=== PATIENT | female | born 1960 | race Caucasian/White ===

== ENCOUNTER 2017-11-09 01:47 | Outpatient (CLI) | payer BC, SELFPAY ==
[2017-11-09 09:04] LABS: Cholesterol 273 mg/dL (50-200); HDL Cholesterol 40 mg/dL (40-60); LDL CHOLESTEROL 200 mg/dL (<100); TSH 0.14 uIU/mL (0.358-3.74); Triglyceride 187 mg/dL (30-150)
[2017-11-09 21:50] LABS: T3,Free 3.3 pg/ml (2.8-5.3)
== END 2017-11-09 02:07 ==
PROVIDERS: PCP Family Medicine; Visit Provider Family Medicine
DX: E89.0 Postprocedural hypothyroidism (principal)
CPT/HCPCS: 36415; 80061; 83721; 84443; 84481

== ENCOUNTER 2018-09-12 16:37 | Outpatient (CLI) | payer BC, SELFPAY ==
[2018-09-12 17:40] LABS: C-Reactive Protein 0.19 mg/dL (0.0-0.3)
[2018-09-12 18:39] LABS: ESR 9 mm/hr (0-30)
[2018-09-16 12:10] LABS: Lyme Ab w Rflx to Lyme Confirm Negative
[2018-09-16 12:34] LABS: Rheumatoid Factor <8 IU/mL (<12.5)
[2018-09-16 14:30] LABS: ANA Interpretation Negative (NEGAT)
== END 2018-09-12 16:57 ==
PROVIDERS: PCP Family Medicine; Visit Provider Family Medicine
DX: M25.541 Pain in joints of right hand (principal); M25.542 Pain in joints of left hand
CPT/HCPCS: 36415; 85652; 86038; 86140; 86431; 86618

== ENCOUNTER 2020-02-25 02:25 | Outpatient (CLI) | payer BC, SELFPAY ==
[2020-02-25 12:51] LABS: Hemoglobin A1C 5.2 % (<5.7)
[2020-02-25 13:31] LABS: Anion Gap 6.9 mmol/L (3-11); BUN 14 mg/dL (7-18); CO2 29.1 mmol/L (21.0-32.0); CREATININE 0.86 mg/dL (0.55-1.02); Calculated LDL 163 mg/dL (<100); Chloride 105 mmol/L (98-107); Cholesterol 257 mg/dL (<200); Glucose 98 mg/dL (74-106); HDL Cholesterol 31 mg/dL (40-60); Potassium 4.4 mmol/L (3.5-5.1); Sodium 141 mmol/L (136-145); TSH 0.02 uIU/mL (0.36-3.74); Triglyceride 315 mg/dL (<150)
[2020-02-25 13:48] LABS: FREE T4 1.29 ng/dL (0.76-1.46)
== END 2020-02-25 02:45 ==
PROVIDERS: PCP Nurse Practitioner Family; Visit Provider Nurse Practitioner Family
DX: E03.9 Hypothyroidism, unspecified (principal); E78.5 Hyperlipidemia, unspecified
CPT/HCPCS: 36415; 80048; 80061; 83036; 84439; 84443

== ENCOUNTER 2020-04-05 01:50 | Outpatient (CLI) | payer BC, SELFPAY ==
--- NOTE | 2020-04-05 16:05 | DI.MAMMO_ITS ---
EXAM: MG MAMMO SCREENING CLINICAL HISTORY: screening,z12.39 TECHNIQUE: Bilateral full field digital CC and MLO mammographic images were obtained with 3D tomosyn thesis and utilizing computer aided detection (CAD). COMPARISON: Available for comparison. FINDINGS: Masses/Architectural Distortion: None seen. Microcalcifications: No suspicious pleomorphic-type are seen. Skin Thickening/Nipple Retraction: None. IMPRESSION: 1. No significant interval change with no specific features of malignancy noted. 2. Unless there is more urgent need, screening mammography is recommended, as per [employer] guidelines. BI-RADS Category 1 - Negative Breast Density - Category D - Extremely dense Breast density category C or D implies that the patient has dense breast tissue. Dense breast tissue is very common and is not abnormal but dense breast tissue can make it harder to find cancer on a ma mmogram. Also, dense breast tissue may increase their breast cancer risk. This information about the result of the mammogram report was provided to the patient to raise their awareness. Use this report when you speak with the patient about their risks for breast cancer, which includes their family hist ory. At that time, you may recommend for more screening tests (Ultrasound or MRI) as they might be us eful based on their risk. A negative radiographic report should not delay biopsy if a dominant or clinically suspicious mass is present. Up to ten percent of cancers are not identified on mammography. A negative report may reinforce clinical impression. Adenosis and dense breasts may obscure an underlying neoplasm. False positive reports average 6 to 10%. Patient will receive a letter notifying them of these results.
== END 2020-04-05 01:51 | disposition home or self-care (01) ==
LOC: DI 01:50
PROVIDERS: PCP Nurse Practitioner Family; Visit Provider Nurse Practitioner Family
DX: Z12.31 Encounter for screening mammogram for malignant neoplasm of breast (principal)
CPT/HCPCS: 77063; 77067

== ENCOUNTER 2020-05-14 01:47 | Outpatient (CLI) | payer BC, SELFPAY ==
[2020-05-14 12:37] LABS: Calculated LDL 176 mg/dL (<100); Cholesterol 248 mg/dL (<200); HDL Cholesterol 34 mg/dL (40-60); Triglyceride 190 mg/dL (<150)
== END 2020-05-14 01:48 | disposition home or self-care (01) ==
LOC: LOS 01:47
PROVIDERS: PCP Nurse Practitioner Family; Visit Provider Nurse Practitioner Family
DX: E78.5 Hyperlipidemia, unspecified (principal)
CPT/HCPCS: 36415; 80061

== ENCOUNTER 2020-05-26 03:23 | Outpatient (CLI) | payer BC, SELFPAY ==
[2020-05-26 13:11] LABS: TSH 0.11 uIU/mL (0.36-3.74)
[2020-05-26 13:33] LABS: FREE T4 1.41 ng/dL (0.76-1.46)
== END 2020-05-26 03:24 | disposition home or self-care (01) ==
LOC: LOS 03:24
PROVIDERS: PCP Nurse Practitioner Family; Visit Provider Nurse Practitioner Family
DX: E06.3 Autoimmune thyroiditis (principal)
CPT/HCPCS: 36415; 84439; 84443

== ENCOUNTER 2020-08-12 01:52 | Outpatient (CLI) | payer BC, SELFPAY ==
[2020-08-12 13:05] LABS: FREE T4 1.11 ng/dL (0.76-1.46); TSH 0.64 uIU/mL (0.36-3.74)
== END 2020-08-12 01:53 | disposition home or self-care (01) ==
LOC: LOS 01:52
PROVIDERS: PCP Nurse Practitioner Family; Visit Provider Nurse Practitioner Family
DX: E06.3 Autoimmune thyroiditis (principal)
CPT/HCPCS: 36415; 84439; 84443

== ENCOUNTER 2020-11-11 01:15 | Outpatient (CLI) | payer BC, SELFPAY ==
--- NOTE | 2020-11-11 07:15 | DI.NM_ITS ---
APPROVED REPORT Exam: Pharmacologic paired with low level exercise Patient Location: Out-Patient Room/Bed: Stress Nurse: Sadie Craven RN Ordering Provider:ANANT MENDOZALuis Miguel, Contact Number: [phone] BMI: 29.53 Baseline Rhythm: Sinus Rhythm Comment: inverted T waves present Indications: Chest pain Medical History Medical History: HTN, HLD, Hypothyroidism, Obesity Cardiac Medications: Losartan, Levothyroxine, Methylphenidate Allergies: Lisinopril, Propoxyphene napsylate Cardiac Risk Factors: FHX of CAD, HTN, Hyperlipidemia, Obesity Previous Cardiac Procedures: None Pretest Chest Pain Characteristics: No chest pain Exercise History: Indeterminate Physical Disabilities: None Lung Sounds: Clear to auscultation Heart Sounds: Regular Stress Test Details Test: Pharmacologic stress was paired with low level exercise. Reason for pharmacologic stress test: inverted T waves present. Nuclear Acquisition: Rest Tc-99m/Stress Tc-99m 1 day Rest Isotope: Tc-99m Sestamibi. Dose: 11.5 Date: 11/11/2020 Injection Time: 0840 Stress Isotope: Tc-99m Sestamibi. Dose: 36.5 Date: 11/11/2020 Injection Time: 1028 HR Resting HR Supine: 65 bpm Max Heart Rate (APMHR): 159.849910 bpm Resting HR Standin bpm Target HR (85% APMHR): 135.511570 bpm Max HR Achieved: 129 bpm % of APMHR: 81.13 Recovery HR: 83 bpm BP Resting BP Supine: 146/88 mmHg Resting BP Standin/82 mmHg Max BP: 168/84 mmHg Recovery BP: 148/80 mmHg ECG Resting ECG: Sinus Rhythm Ectopy: None Comment: T waves present in leads II, III, aVF, V3, V4, V5, V6 Stress ECG: Sinus Tachycardia w/ inverted T waves ST Change: deepening of inverted T waves Arrhythmia: None Recovery ECG: Sinus Rhythm w/ inverted T waves Recovery ST Change: No significant ST segment changes noted Recovery Arrhythmia: None Clinical Stress Symptoms: Dyspnea Rate Pressure Product: [id number] Stress ECG Conclusion 1. The resting electrocardiogram showed left ventricular hypertrophy with repolarization abnormalitie s 2. Patient underwent exercise testing coupled with pharmacologic stress with regadenoson 3. Peak heart rate achieved was 82% of predicted for age 4. Electrocardiographically the repolarization's became more prominent with increasing heart rate, mendez ggestive but not diagnostic of some degree of myocardial ischemia 5. There were no dysrhythmias Stress Test Summary STAGE HR BP Symptoms NOTES Supine 65 146/88 1 min post Lexiscan injection 128 152/80 mild SOB 3 min post Lexiscan injection 109 168/84 6 min post Lexiscan injection 83 148/80 SOB resolved. Standing 73 140/82 Lexiscan injection paired w/ exercise at 2.1 mph and 0% grade. MPI Conclusion Normal myocardial perfusion without evidence of ischemia or prior infarction EF 53% Radiologist Interpretation Radiologist agrees with Boot Repairer's Interpretation. Radiologist Interpretation by: Gold Geronimo MD Interpretation Date/Time: 11/11/2020 16:17:42
[2020-11-11] MEDS: Regadenoson 0.4 MG/5 ML SYR IVP (10:36)
== END 2020-11-11 01:35 ==
PROVIDERS: PCP Nurse Practitioner Family; Visit Provider Nurse Practitioner Family
DX: R07.9 Chest pain, unspecified (principal); I51.7 Cardiomegaly; Z82.49 Family history of ischemic heart disease and other diseases of the circulatory system; I10 Essential (primary) hypertension; E78.5 Hyperlipidemia, unspecified; E66.9 Obesity, unspecified
CPT/HCPCS: 78452; 93017; J2785

== ENCOUNTER 2020-11-11 13:03 | Outpatient (CLI) | payer BC, SELFPAY ==
--- NOTE | 2020-11-11 13:00 | NS.NUTBLAN_ITS ---
Luis was referred to Medical Nutrition Therapy for weight management. PMH: hyperlipidemia, HTN, obesity. 5'9 205 lbs, BMI 30. Luis reports that during the work week she typically drinks coffee during day and has a home made meal in evening. She has no hunger during day. She reports that she walks 3 miles daily at her job and that she has gained 50 lbs in last 10 years. Her goal weight is 170 lbs. Session today focused on how to increase metabolism to help in weight loss. Suspect that her erratic meal schedule has contributed to weight gain over the years. Educated Luis on how to follow a [id number] kcal, 80-100 g CHO, 60-70 g protein, 45-55 g fat meal plan with 3 meals and 2 snacks daily. Meal plans provided. Also, encouraged walking an additional 30 minutes per day for more cardio intense exercise. Suspect that a 10% weight loss will help regular her BP and decrease lipids. No follow up planned. Luis has my contact information and will follow up prn.
== END 2020-11-11 13:04 | disposition home or self-care (01) ==
LOC: DS 13:04
PROVIDERS: PCP Nurse Practitioner Family; Visit Provider Dietitian, Registered
DX: E66.3 Overweight (principal); Z68.30 Body mass index [BMI] 30.0-30.9, adult; E78.5 Hyperlipidemia, unspecified; I10 Essential (primary) hypertension; Z71.3 Dietary counseling and surveillance
CPT/HCPCS: 97802

== ENCOUNTER 2020-12-17 14:13 | Outpatient (CLI) | payer BC, SELFPAY ==
--- NOTE | 2020-12-17 14:00 | RT.EKG_ITS ---
APPROVED REPORT Exam: Resting ECG Reason for Exam: HTN Patient Location: O HR:60 bpm ECG Measurements Heart Rate 60 AXIS LA 139 P 45 QRSd 102 QRS 38 QT 384 T -87 QTc 384 Conclusion Sinus rhythm...normal P axis, V-rate 50- 99 Nonspecific repol abnormality, diffuse leads...ST dep, T flat/neg, ant/lat/inf
== END 2020-12-17 14:14 | disposition home or self-care (01) ==
LOC: DI.CARD 14:15
PROVIDERS: PCP Nurse Practitioner Family; Visit Provider Internal Medicine Cardiovascular Disease
DX: I10 Essential (primary) hypertension (principal)
CPT/HCPCS: 93010

== ENCOUNTER 2021-08-12 01:20 | Outpatient (CLI) | payer BC, SELFPAY ==
[2021-08-12 12:53] LABS: Anion Gap 8.9 mmol/L (3-11); BUN 16 mg/dL (7-18); CO2 28.1 mmol/L (21.0-32.0); Calcium 8.5 mg/dL (8.5-10.1); Calculated LDL 191 mg/dL (<100); Chloride 105 mmol/L (98-107); Cholesterol 279 mg/dL (<200); Estimated GFR 56.37 (mL/min/1.73m2); Glucose 102 mg/dL (74-106); HDL Cholesterol 34 mg/dL (40-60); Potassium 4.2 mmol/L (3.5-5.1); Sodium 142 mmol/L (136-145); TSH 1.53 uIU/mL (0.36-3.74); Triglyceride 274 mg/dL (<150)
[2021-08-12 13:13] LABS: FREE T4 0.93 ng/dL (0.76-1.46)
== END 2021-08-12 01:21 | disposition home or self-care (01) ==
LOC: LOS 01:21
PROVIDERS: PCP Nurse Practitioner Family; Visit Provider Nurse Practitioner Family
DX: I10 Essential (primary) hypertension (principal); E03.9 Hypothyroidism, unspecified; E78.5 Hyperlipidemia, unspecified
CPT/HCPCS: 36415; 80048; 80061; 84439; 84443

== ENCOUNTER → 2021-08-30 01:57 | Outpatient (CLI) | payer BC, SELFPAY ==
--- NOTE | 2021-08-30 06:30 | DI.MAMMO_ITS ---
Exam(s) MAMMO SCREENING EXAM: MAMMO SCREENING CLINICAL HISTORY: screening,z12.39. TECHNIQUE: Bilateral full field digital CC and MLO mammographic images were obtained with 3D tomosyn thesis and utilizing computer aided detection (CAD). COMPARISON: Prior mammograms were reviewed, the most recent being March 2020. FINDINGS: Fibroglandular tissue is again noted be moderately dense, this somewhat decreasing the sensitivity of the mammogram for finding in underlying There are no new obvious spiculated masses nor malignant appearing microcalcification groups. There is no significant architectural distortion nor skin thickening-retraction. IMPRESSION: Dense bilateral fibroglandular tissue. No obvious radiographic evidence of malignancy. BI-RADS Category 1 - Negative Breast Density - Category C - Heterogeneously dense Breast density Category C or D implies that the patient has dense breast tissue. Dense breast tissue can make it harder to find cancer on a mammogram. Dense breast tissue is also associated with an incr eased risk of breast cancer. This information about the result of the mammogram report was provided to the patient to raise their awareness. Use this report when you speak with the patient about their risks for breast cancer, which includes their family history. At that time, you may recommend additional screening tests (Ultrasoun d or MRI) as these tests may add significant information. A negative radiographic report should not delay biopsy if a dominant or clinically suspicious mass is present. Up to ten percent of cancers are not identified on mammography. A negative report may reinforce clinical impression. Adenosis and dense breasts may obscure an underlying neoplasm. False positive reports average 6 to 10%. Patient will receive a letter notifying them of these results.
== END ==
PROVIDERS: PCP Nurse Practitioner Family; Visit Provider Nurse Practitioner Family
DX: Z12.31 Encounter for screening mammogram for malignant neoplasm of breast (principal)
CPT/HCPCS: 77063; 77067

== ENCOUNTER → 2021-11-08 12:15 | Outpatient (CLI) | payer BC, SELFPAY ==
--- NOTE | 2021-11-08 16:45 | DI.RAD_ITS ---
Exam(s) XR FOOT LT COMPLETE EXAM: XR FOOT LT COMPLETE CLINICAL HISTORY: PAIN IN LEFT FOOT--M79.672. TECHNIQUE: 2D digital imaging was performed. COMPARISON: No exams were available for comparison FINDINGS: 3 views No evidence of fracture nor diastasis of the Lisfranc joint. No osseous lesions nor erosions. Great toe metatarsophalangeal joint appears un remarkable. No hallux valgus. No pes planus. Tiny inferi or calcaneal spur noted. IMPRESSION: DATA REPOSITORY: RADIATION DOSE DELIVERED:
--- NOTE | 2021-11-08 17:28 | DI.VRAD_ITS ---
PROCEDURE INFORMATION: Exam: XR Left Foot Exam date and time: 11/08/2021 5:04 PM Age: 61 years old Clinical indication: Patient HX: Pain in left foot; Additional info: Question heel spur vs plantar fascitis TECHNIQUE: Imaging protocol: Radiologic exam of the Left foot. Views: 3 or more views. COMPARISON: No relevant prior studies available. FINDINGS: Bones/joints: No acute fracture or dislocation. Plantar calcaneal and achilles enthesopathy. Joint spaces appear maintained. Soft tissues: Unremarkable. IMPRESSION: Plantar calcaneal and achilles enthesopathy. Dictated and Authenticated by: Joss Goldsmith MD. Ordering:BAILEY Vazquez MD
== END ==
PROVIDERS: PCP Nurse Practitioner Family; Visit Provider Nurse Practitioner Family
DX: M79.672 Pain in left foot (principal); M77.32 Calcaneal spur, left foot
CPT/HCPCS: 73630

== ENCOUNTER 2022-03-31 07:58 | Outpatient (REF) | payer BC, SELFPAY ==
--- NOTE | 2022-03-31 07:30 | PAPFT_PTH ---
PATIENT: Luis Still LOC: [facility] U#:[id number] AGE/SX: 61/F ROOM: RE03/31/[address]: PANCHO Waite : 1960 BED: DIS: 03/31/2022 SPEC #: [id number] RECD: 03/31/22 12:52 STATUS: DOMINGA REJean Marie #: [id number] JULIO: 03/31/22 07:[address]: Deysi Painter DEPT: [facility] Cytology RECD BY: Shirley Baker Tissues: 1 - CX/ENDOCX FOR PAP SMEARS Procedures: PAP THIN PREP/UVM Screening HPV DNA PROBE Comments: [id number]
== END 2022-03-31 07:59 | disposition home or self-care (01) ==
LOC: LBN 07:58
PROVIDERS: PCP Nurse Practitioner Family; Visit Provider Nurse Practitioner Family
DX: Z12.4 Encounter for screening for malignant neoplasm of cervix (principal); Z11.51 Encounter for screening for human papillomavirus (HPV)
CPT/HCPCS: 88142; 87624

== ENCOUNTER 2022-04-14 01:16 | Outpatient (CLI) | payer BC, SELFPAY ==
[2022-04-14 16:41] LABS: ALT 28 U/L (14-59); AST 18 U/L (15-37); Albumin 4.4 g/dL (3.4-5.0); Alkaline Phosphatase 76 U/L (46-116); Anion Gap 6.8 mmol/L (3-11); BUN 16 mg/dL (7-18); Bilirubin, Total 0.3 mg/dL (0.2-1.0); CO2 31.2 mmol/L (21.0-32.0); Calcium 9.1 mg/dL (8.5-10.1); Calculated LDL 97 mg/dL (<100); Chloride 105 mmol/L (98-107); Cholesterol 171 mg/dL (<200); Glucose 83 mg/dL (74-106); HDL Cholesterol 36 mg/dL (40-60); Potassium 3.8 mmol/L (3.5-5.1); Sodium 143 mmol/L (136-145); TSH (W/Ref FT4) 0.39 uIU/mL (0.36-3.74); Total Protein 7.3 g/dL (6.4-8.2); Triglyceride 190 mg/dL (<150)
== END 2022-04-14 01:17 | disposition home or self-care (01) ==
PROVIDERS: PCP Nurse Practitioner Family; Visit Provider Nurse Practitioner Family
DX: E78.5 Hyperlipidemia, unspecified (principal)
CPT/HCPCS: 36415; 80053; 80061; 84443

== ENCOUNTER 2022-09-04 01:46 | Outpatient (CLI) | payer BC, SELFPAY ==
--- NOTE | 2022-09-04 06:45 | DI.MAMMO_ITS ---
Exam(s) MAMMO SCREENING EXAM: MAMMO SCREENING CLINICAL HISTORY: screening,z12.39. TECHNIQUE: Bilateral full field digital CC and MLO mammographic images were obtained with 3D tomosyn thesis and utilizing computer aided detection (CAD). COMPARISON: Prior mammograms were reviewed. FINDINGS: The fibroglandular tissue pattern is again noted to be moderately dense. In the posterior-lateral aspect of the left breast there are 2 small adjacent nodules, both measuring approximately 8 x 5 mm, located 16 cm in from the nipple, as seen on the CC view. These have benign appearance but were not evident on prior mammograms. No other new findings in the left breast nor new findings in the right breast. No malignant-appearing microcalcification groups in either breast. There is no significant architectural distortion nor skin thickening-retraction. IMPRESSION: 1. No radiographic evidence of malignancy in the right breast. 2. Two adjacent nodular densities located posteriorly in the lateral aspect of the left breast, 16 cm in from the nipple. Benign appearance but were not evident on prior mammograms. Spot compression v iews and ultrasound recommended BI-RADS Category 0 - Assessment Incomplete: Need additional imaging evaluation Breast Density - Category C - Heterogeneously dense Breast density Category C or D implies that the patient has dense breast tissue. Dense breast tissue can make it harder to find cancer on a mammogram. Dense breast tissue is also associated with an incr eased risk of breast cancer. This information about the result of the mammogram report was provided to the patient to raise their awareness. Use this report when you speak with the patient about their risks for breast cancer, which includes their family history. At that time, you may recommend additional screening tests (Ultrasoun d or MRI) as these tests may add significant information. A negative radiographic report should not delay biopsy if a dominant or clinically suspicious mass is present. Up to ten percent of cancers are not identified on mammography. A negative report may reinforce clinical impression. Adenosis and dense breasts may obscure an underlying neoplasm. False positive reports average 6 to 10%. Patient will receive a letter notifying them of these results.
== END 2022-09-04 02:06 ==
PROVIDERS: PCP Nurse Practitioner Family; Visit Provider Nurse Practitioner Family
DX: Z12.31 Encounter for screening mammogram for malignant neoplasm of breast (principal)
CPT/HCPCS: 77063; 77067

== ENCOUNTER 2022-09-07 02:16 | Outpatient (CLI) | payer BC, SELFPAY ==
--- NOTE | 2022-09-07 | DI.US_ITS ---
Exam(s) MAMMO SCREEN CALL BACK UNI US BREAST LT COMPLETE EXAM: MAMMO SCREEN CALL BACK UNI-LEFT AND COMPLETE LEFT BREAST ULTRASOUND CLINICAL HISTORY: F/U MAMMO, 2 SMALL NODULES. TECHNIQUE: Unilateral spot mammographic images obtained with 3D tomosynthesisand utilizing computer aided detection (CAD). . Complete LEFT breast Ultrasound was also performed, including all 4 quadrants, the retroareolar regio n, and the ipsilateral axilla. COMPARISON: Prior mammograms were reviewed. This additional imaging was performed due to findings described on the recent screening mammogram of 09/04/2022. FINDINGS: DIAGNOSTIC MAMMOGRAM: Additional mammographic views performed todayrender this area less concerning. COMPLETE LEFT BREAST ULTRASOUND: Ultrasound performed today reveals no evidence of solid or significant cystic lesions in the lateral aspect of breast to correspond to finding on the mammogram, further evidence that these are probably small adjacent benign intramammary lymph nodes.. Scanning of the ipsilateral axilla reveals normal-appearing lymph nodes but no significant adenopath y. IMPRESSION: 1. Benign findings in left breast as described above. Appropriate follow-up as described by myself with the patient today is repeat left breast MAMMOGRAM i n 6 months. The patient was informed of these findings and recommendations by myself prior to leaving [facility] today. BI-RADS Category 3 - 6 month - Probably Benign Finding: Recommend follow-up mammography in 6 months Breast Density - Category C - Heterogeneously dense Breast density Category C or D implies that the patient has dense breast tissue. Dense breast tissue can make it harder to find cancer on a mammogram. Dense breast tissue is also associated with an incr eased risk of breast cancer. This information about the result of the mammogram report was provided to the patient to raise their awareness. Use this report when you speak with the patient about their risks for breast cancer, which includes their family history. At that time, you may recommend additional screening tests (Ultrasoun d or MRI) as these tests may add significant information. A negative radiographic report should not delay biopsy if a dominant or clinically suspicious mass is present. Up to ten percent of cancers are not identified on mammography. A negative report may reinforce clinical impression. Adenosis and dense breasts may obscure an underlying neoplasm. False positive reports average 6 to 10%. Patient will receive a letter notifying them of these results.
== END 2022-09-07 02:36 ==
LOC: DI 02:17
PROVIDERS: PCP Nurse Practitioner Family; Visit Provider Nurse Practitioner Family
DX: Z12.31 Encounter for screening mammogram for malignant neoplasm of breast (principal); R92.8 Other abnormal and inconclusive findings on diagnostic imaging of breast
CPT/HCPCS: 76642; 77063; 77067

== ENCOUNTER → 2023-03-13 03:12 | Outpatient (CLI) | payer BC, SELFPAY ==
--- NOTE | 2023-03-13 | DI.US_ITS ---
Exam(s) US BREAST LT COMPLETE MG MAMMO DIAGNOSTIC UNI EXAM: MG MAMMO DIAGNOSTIC UNI-LEFT AND COMPLETE LEFT BREAST ULTRASOUND CLINICAL HISTORY: 6 month f/u,r92.8,z09. TECHNIQUE: Cc and MLO mammographic images were obtained with 3D tomosynthesis technique and [employer] g computer aided detection (CAD). Also additional spot compression views performed Complete left breast ultrasound was performed including all 4 quadrants as well as the axilla. COMPARISON: Prior mammograms were reviewed, as well as prior ultrasound FINDINGS: Diagnostic left breast mammogram: The previously described posteriorly located nodules are actually less evident on the present study, further evidence that they were benign. However, on the present CC view there is a suggestion of a nodular density medial of center located 7 cm in from the nipple. This measures approximately 8 x 5 mm. Additional spot compression view (cc) of this area is equivocal. We proceeded with ultrasound Complete left breast ultrasound: There is a solitary finding on today's ultrasound which is at the 10 o'clock position and corresponds to the finding on the mammogram. This has the appearance of a 4 x 3 millimeter microcyst. Most importantly, there no solid lesions seen in all 4 quadrants. Scanning of the axilla is negative for adenopathy. IMPRESSION: 1. Benign findings. There is a new microcyst at the 10 o'clock position of the left breast measuring 4 x 3 mm. No new solid lesions. Appropriate follow-up is to keep this patient on her yearly mammogram schedule, this implying her nex t bilateral screening mammogram would be in August or September 2023, with earlier imaging if a self detec blanca breast change is noted.. The patient was informed of the findings and follow-up recommendations by myself prior to leaving the department today. BI-RADS Category 2 - Benign Findings Breast Density - Category C - Heterogeneously dense Breast density Category C or D implies that the patient has dense breast tissue. Dense breast tissue can make it harder to find cancer on a mammogram. Dense breast tissue is also associated with an incr eased risk of breast cancer. This information about the result of the mammogram report was provided to the patient to raise their awareness. Use this report when you speak with the patient about their risks for breast cancer, which includes their family history. At that time, you may recommend additional screening tests (Ultrasoun d or MRI) as these tests may add significant information. A negative radiographic report should not delay biopsy if a dominant or clinically suspicious mass is present. Up to ten percent of cancers are not identified on mammography. A negative report may reinforce clinical impression. Adenosis and dense breasts may obscure an underlying neoplasm. False positive reports average 6 to 10%. Patient will receive a letter notifying them of these results.
== END ==
PROVIDERS: PCP Nurse Practitioner Family; Visit Provider Nurse Practitioner Family
DX: R92.8 Other abnormal and inconclusive findings on diagnostic imaging of breast (principal); Z09 Encounter for follow-up examination after completed treatment for conditions other than malignant neoplasm
CPT/HCPCS: 76642; 77061; 77065; G0279

== ENCOUNTER 2023-04-03 04:32 | Outpatient (CLI) | payer BC, SELFPAY ==
[2023-04-03 09:30] LABS: Anion Gap 7.6 mmol/L (3-11); BUN 12 mg/dL (7-18); CO2 26.4 mmol/L (21.0-32.0); CREATININE 0.9 mg/dL (0.55-1.02); Calcium 8.9 mg/dL (8.5-10.1); Calculated LDL 159 mg/dL (<100); Chloride 107 mmol/L (98-107); Cholesterol 240 mg/dL (<200); Estimated GFR 71.83 (mL/min/1.73m2); Glucose 109 mg/dL (74-106); HDL Cholesterol 42 mg/dL (40-60); Potassium 4.1 mmol/L (3.5-5.1); Sodium 141 mmol/L (136-145); TSH (W/Ref FT4) 2.76 uIU/mL (0.36-3.74); Triglyceride 198 mg/dL (<150)
[2023-04-03 09:56] LABS: Hemoglobin A1C 5.5 % (<5.7)
[2023-04-03 21:49] LABS: Hepatitis C Ab w Rflx HCV PCR Negative (Negative)
== END 2023-04-03 04:33 | disposition home or self-care (01) ==
LOC: LBO 04:32
PROVIDERS: PCP Nurse Practitioner Family; Visit Provider Nurse Practitioner Family
DX: Z00.00 Encounter for general adult medical examination without abnormal findings (principal); E03.9 Hypothyroidism, unspecified; E78.5 Hyperlipidemia, unspecified; I10 Essential (primary) hypertension; Z11.59 Encounter for screening for other viral diseases
CPT/HCPCS: 36415; 80048; 80061; 86803; 83036; 84443

== ENCOUNTER → 2023-09-25 02:43 | Outpatient (CLI) | payer BC, SELFPAY ==
--- OUTSIDE RECORDS SUMMARY | 2023-09-25 02:45 | XMS_ITS | Encounter Summary ---
Author Organization [facility] Address [facility] Keila [facility] [place] [address] Care Team Providers Care Clerk Guide Name Role Phone Rell Brady MD Primary Care Provider [phone] Reason for Visit * Auth/Cert Specialty Diagnoses / Procedures Referred By Contac t Referred To Contact Diagnoses THYROID NODULE Procedures PRO THYROIDECTOMY PRG EMG, LARYNX THYROIDECTOMY, TOTAL OR COMPLETE (WRVU 15.04) FACIAL NERVE MONITORING, SETUP LARYNGEAL (WRVU 1.57) Referral ID Status Reason Start Date Expiration Date Visits Re quested Visits Authorized [id number] 1 1 Encounter Details Date Type Department Care Team (Latest Contact Info) Description 10/02/2017 8:45 AM EDT - 10/02/2017 5:56 PM EDT Hospital [place] [id number] Mane Barros MD [facility] [place] [address] Multinodular goiter; Maya's thyroiditis Discharge Disposition: Home Social History Tobacco Use Types Packs/Day Years Used Date Smoking Tobacco: Never Smokeless Tobacco: Never Sex and Gender Information Value Date Recorded Sex Assigned at Not on file Gender Identity Not on file Sexual Orientation Not on file documented as of this encounter Last Filed Vital Signs Vital Sign Reading Time Taken Comments Blood Pressure 139/63 10/02/2017 4:45 PM EDT Pulse 69 10/02/2017 3:40 PM EDT Temperature 36 ??C (96.8 ??F) 10/02/2017 2:48 PM EDT Respiratory Rate 15 10/02/2017 3:40 PM EDT Oxygen Saturation 93% 10/02/2017 4:45 PM EDT Inhaled Oxygen Concentration - - Weight 90.7 kg (200 lb) 10/02/2017 9:06 AM EDT Height 175.3 cm (5' 9) 10/02/2017 9:06 AM EDT Body Mass Index 29.53 10/02/2017 9:06 AM EDT documented in this encounter Discharge Instructions * Discharge Instructions* Sangita Lomeli RN - 10/02/2017 2:55 PM EDT Next dose of acetaminophen (tylenol) can be taken at . Next dose of ibuprofen (motrin) can be taken at . * Patient Instructions* Hugo Suarez MD - 10/02/2017 2:49 PM EDT THYROID LOBECTOMY (HEMITHYROIDECTOMY) PATIENT DISCHARGE INSTRUCTIONS What to Expect Following Surgery: Swelling and/or bruising under and around the incision is normal. It is usually greatest on the second or third day following surgery. You may also feel the sensation of swelling or firmness that canlast for a month or more Your scar will be most visible for 1-2 months following your operation and will gradually fade overthe next 6-8 months. As it heals, a scar often looks more pink or red than the skin around it. You may feel a ???healing ridge?? directly under the incision. This is completely normal and is the result of swelling, healing, and scar formation. Usually, this will go away when healing is complete in 3-6 months. The skin just above and below your incision will feel numb. This will improve over several months but some patients may have a long-term decrease in sensation over these areas. You may notice minor difficulty in swallowing which will improve over time. Your voice may be hoarse or weak at first--this is normal and does not mean there was damage done to the nerves that make the vocal cords move. Your voice will usually go back to normal after severaldays to a few weeks. Incision Care: Neck incisions heal rapidly--usually within a week or two. The incision can get wet in the shower 24 hours after surgery. However, do not submerge the incision underwater (i.e. bath tub, swimming pool, hot tub, etc.) for at least 2 weeks after your operation. Pat the incision dry immediately following your shower. Do not scrub the area vigorously for the next 2 weeks. You have a skin glue closure. You may notice tiny pieces of yellow/white material on your washclothor there may be a thin clear or whitish crust around the edges of the incision. This is normal. Theglue will start to come off about a week after surgery. Do not pull off the skin glue in order to allow time for the incision to heal completely. Do not use any ointments/salves/Vitamin E on the incision for at least two weeks, as these may impair early wound healing. Incisions are sensitive to sunlight. For at least 1 year after surgery you should use sunscreen when outdoors for long periods of time to prevent permanent darkening of the scar. This includes tanning booths. Pain Management: You may apply ice or cold packs to the incision for 15-20 minutes several times a day for the first2-3 days following surgery to help with discomfort. You may feel some stiffness/soreness in your shoulders, back, and neck. This may take a few days orweeks to go away completely. You may use moist warm heat, a heating pad, or massage to these areas for 15-20 minutes several times a day. Do not be afraid to move your neck - gently flexing and stretching your neck muscles and light massage will help prevent stiffness NSAIDs (non-steroidal anti-inflammatory drugs) such as ibuprofen (Motrin, Advil) and naproxen (Naprosyn, Aleve) or acetaminophen (Tylenol) are most helpful for the pain experienced after surgery. Generally, these are even more effective than the stronger pain medications (narcotics or opioids) after thyroid surgery. Take NSAIDS or Tylenol every 6 hours [id number] for the first 3-5 days following surgery to help minimize pain. Diet & Activity: No restrictions in your diet are necessary. Activity as tolerated by your comfort level. You may return to work as soon as you would like. However, if your job requires heavy lifting or strenuous physical activity, your surgeon may ask you to wait to return to work until after your two-week post-operative appointment. No driving until you can comfortably turn your head and react appropriately in an emergency. Thyroid Hormone: About 22% of patients will require thyroid hormone supplementation after a hemithyroidectomy. A blood test will performed in 6-8 weeks to determine whether you need this. This lab test will be coordinated with your follow-up appointment. Pathology Report: All specimens removed at surgery are analyzed by a pathologist. This report usually takes approximately 4 business days to be ready. Dr. Barros will call you with this report as soon as it is available. Follow-up Appointment: Will be scheduled with Dr. Barros in approximately 6 weeks Please call [phone] to confirm the date and time of your appointment if you do not hear from us in the next 2 weeks or if you need to reschedule. Future Appointments Date Time Provider Department Center 11/08/2017 2:05 PM NATASHA, [facility] 11/08/2017 3:15 PM Mane Barros MD [facility] 12/10/2017 1:00 PM Rell Burrell MD [facility] End[facility] Call Doctor for: Call if you have trouble talking or breathing (call 911 if this is severe) Call if you develop numbness or tingling around your mouth/lips or on the tips of your fingers or your hands, as this may mean your calcium is low. This may also be related to pain medication, where the breathing tube was positioned against your lips, the positioning of your arms and hands in the operating room, or how you were positioned when sleeping. If the sensation does not go away within a half hour, or if it worsens prior to that, call us immediately so we can discuss increasing your calcium if we think you need it. Call if your incision becomes red or begins to drain fluid. Call if you have fevers greater than 101 degrees F Call if you have persistent nausea or vomiting (this may be related to opioid pain medications). Call if you begin feeling worse, rather than better, several days after surgery. Phone number for questions: [phone] before 5 PM on weekdays [phone] after 5 PM and on weekends/holidays. Ask for the general surgery resident software solutions architect. documented in this encounter Medications at Time of Discharge Medication Sig Dispensed Refills Start Date End Date calcium citrate-vitamin D (CALCIUM CITRATE +) 315-200 mg-unit Tablet Take 2 tablets by mouth 3 times daily (with meals). 10/02/2017 03/12/2018 levothyroxine (SYNTHROID) 150 mcg Tablet Take 1 tablet by mouth daily. 90 tablet 3 07/09/2017 07/22/2018 documented as of this encounter H&P Notes * Hugo Suarez MD - 10/02/2017 11:09 AM EDT H&P 24hr interval update/Pre-operative note Please see Dr. Barros's note from clinic on 08/24/2017 for further information. ID: Luis Still is a 56 y.o. female with a hx of multinodular goiter and maya's who presents to [facility] for total thyroidectomy S: Luis Still endorses no recent change in health. Denies any fever, chills, cough, congestion,change in bowel habits. O: Physical Exam: Most Recent Vitals: 10/02/17 0906 BP: 186/84 Pulse: 71 Resp: 14 Temp: 36.6 ??C (97.9 ??F) SpO2: 98% Gen: NAD CVS: RRR Pulm: CTAB Abd: soft, nt/nd Ext: wwp Neuro: non-focal A/P: Luis Still is a 56 y.o. female who presents for planned total thyroidectomy. Will proceed with planned operation. Hugo Suarez MD 10/02/2017 General Surgery Pgr. [id number] documented in this encounter Miscellaneous Notes * Op Note - Mane Barros MD - 10/02/2017 2:31 PM EDT [facility] Operative Note Patient Name: Luis Still : [id number] MR#: [id number] Case Date: 10/02/2017 Surgeon: Surgeon(s) and Role: * Mane Barros MD - Primary * Hugo Suarez MD Preoperative diagnosis: THYROID NODULE Postoperative diagnosis: THYROID NODULE Procedure(s) (LRB): THYROIDECTOMY, TOTAL OR COMPLETE (WRVU 15.04) (N/A) FACIAL NERVE MONITORING, SETUP LARYNGEAL (WRVU 1.57) (N/A) Anesthesia: General Estimated Blood Loss: 43 mL Specimens removed during surgery: Order Name Source Comment Collection Info [place] [address] THYROID NODULE Right thryoid lobe and isthmus. excision No 10/02/2017 1:25 PM Number of tissue samples (in container) 1 Time specimen removed from patient: 1:24 PM Biospecimen to store? [place] [address] THYROID NODULE Left lobe of thyroid excision No 10/02/2017 2:13 PM Number of tissue samples (in container) 1 Time specimen removed from patient: 2:12 PM Biospecimen to store? No Drains: Surgical Closure: Primary Closure - skin incision is completely closed without any wires, anaya, drains or other devices Disposition: awakened from anesthesia, extubated and taken to the recovery room in a stable condition, having suffered no apparent untoward event. Condition: doing well without problems (Please see the Surgical Encounter Summary for any Implant and Specimen details pertinent to this patient.) HPI/Surgical Indications: Ms. 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 She had recently followed up with Dr. Burrell, in hopes that they could stop following the nodules, but the one on the right had enlarged significantly. FNA was discussed, but she prefers to proceed directly to surgery. I agree that there is little downside to thyroidectomy in this setting since she is already on a full-dose thyroid hormone supplement. I therefore recommended total thyroidectomy. Procedure Description: The patient was correctly identified in the preoperative holding area. The risks, benefits, and indications of a thyroidectomy were reviewed with the patient. She was then taken to the operating room and placed on the operating table in the supine position and an identification procedure was performed. Adequate general anesthesia was achieved by anesthesiology with the [employer] recurrent laryngeal nerve monitoring system. A natural crease in the anterior neck was marked with a marking pen. This area was infiltrated with 0.25% Sensorcaine with epinephrine. The patient'santerior neck was then prepped and draped in sterile fashion. A timeout procedure was done and all members of the OR team were in agreement. We made a curvilinear incision along the previously marked crease with a scalpel. The incision was carried down through the subcutaneous tissue and platysma muscle using electrocautery. Subplatysmal flaps were created in the cranial and caudal directions. The median raphe of the strap muscles was id entified and this was divided in vertical fashion using electrocautery. This exposed the thyroid gland, which was immediately noted to have a 2cm isthmus nodule directly over the trachea. The right lobe was from its lateral attachments to the strap muscles on the right side using electrocautery. These muscle attachments were extremely tenacious, and the gland was friable, consistent with severe thyroiditis grossly. Retraction was difficult throughout the case as a result. The middle thyroidal veins were ligated with 3-0 silk sutures and Harmonic scalpel. Because of the isthmus nodule, we were having trouble with inferior exposure, and decided to take down the upper pole vessels first. We then took down the superior vessels with a combination of 2-0 and 3-0 silk sutures and Harmonic scalpel. During the course of this dissection, the ~2cm right upper pole nodule burst, releasingcolloid-type contents, which were included with the specimen. This did facilitate better medial retraction, and the inferior thyroid vessels were then identified and divided using a combination of hand ties and harmonic scalpel. We then identified the recurrent laryngeal nerve as it ran in the tracheoesophageal groove and followed this up to ligament of Bettencourt, ligating vessels to expose the nerve's anterior surface. The parathyroid glands were not definitively seen. We then divided the attachmen ts of the ligament of Bettencourt with sharp dissection and 3-0 silk sutures and divided the attachments of the thyroid off the pretracheal fascia past the midline with electrocautery. The ligament of Bettencourt was found to be thickened and the attachments posterior to the nodule were tough. We included the isthmus and its nodule with the right lobectomy specimen, and divided the thyroid through its isthmus on the left side of the nodule using the Harmonic scalpel. We sent the specimen to pathology. The recurrent laryngeal nerve remained intact throughout. The left thyroid lobe was then from its lateral attachments to the strap muscles using electrocautery. Again, this plane was not well-defined. The middle thyroidal veins were ligated with 3-0 silk sutures and Harmonic scalpel. The inferior thyroid vessels were identified and divided usinga combination of hand ties and harmonic scalpel. We then identified the recurrent laryngeal nerve as it ran in the tracheoesophageal groove and followed this up to ligament of Bettencourt, ligating vesselsto expose the nerve's anterior surface. We then took down the upper pole thyroid vessels with a combination of 2-0 and 3-0 silk sutures and Harmonic scalpel. There was some lymphatic tissue around the upper pole that was friable and made this dissection more difficult. A candidate for the left upper parathyroid glands was seen and preserved. We then divided the attachments of the ligament of Bettencourt with sharp dissection, 3-0 silk sutures, and electrocautery. The specimen was sent to pathology. The recurrent laryngeal nerve remained intact throughout. We then irrigated the operative field. A Valsalva to 30 millimeters of mercury was accomplished by Anesthesia. Hemostasis was assured. Surgicel was placed in the paratracheal spaces bilaterally. We then closed the strap muscles using running 3-0 Vicryl suture, the platysma with interrupted 3-0Vicryl suture, and the skin with running 5-0 Prolene subcuticular suture, followed by placement of Dermabond and removal of the Prolene suture. The patient tolerated the procedure well. Sponge and needle counts were correct upon completion of the procedure. Infection Bundle used? N/A Attestation: Case Date: 10/02/2017 I was present and I participated during the entire procedure (does not need to include opening and closing). MANE BARROS MD 10/02/2017 * Brief Op Note - Mane Barros MD - 10/02/2017 2:26 PM EDT Brief Operative Note Patient Name: Luis Still : [id number] MR#: [id number] Case Date: 10/02/2017 Surgeon: Surgeon(s) and Role: * Mane Barros MD - Primary * Hugo Suarez MD Preoperative diagnosis: THYROID NODULE Postoperative diagnosis: THYROID NODULE Procedure(s) (LRB): THYROIDECTOMY, TOTAL OR COMPLETE (WRVU 15.04) (N/A) FACIAL NERVE MONITORING, SETUP LARYNGEAL (WRVU 1.57) (N/A) Anesthesia: General with NIM tube; 10cc 0.25% marcaine with epinephrine Findings: severe thyroiditis. ~2cm isthmus nodule adherent to trachea. Right upper thyroid nodule ruptured during dissection with colloid cystic contents released. Both recurrent laryngeal nerves intact throughout. No parathyroid glands definitively visualized. Complications: none apparent Intake: Intraprocedure Crystalloid Total 1.2L Transfusion No data found. Output: Estimated Blood Loss: 43cc Urine Output:: (no urine output recorded) Other Output: (no other output recorded) Drains: none Specimens removed during surgery: Order Name Source Comment Collection Info Order Time [place] 22 [address] THYROID NODULE Right thryoid lobe and isthmus. excision No 10/02/2017 1:25 PM Number of tissue samples (in container) 1 Time specimen removed from patient: 1:24 PM Biospecimen to store? [place] [address] THYROID NODULE Left lobe of thyroid excision No 10/02/2017 2:13 PM Number of tissue samples (in container) 1 Time specimen removed from patient: 2:12 PM Biospecimen to store? No Disposition: awakened from anesthesia, extubated and taken to the recovery room in a stable condition, having suffered no apparent untoward event. Condition: doing well without problems Attestation: Case Date: 10/02/2017 I was present and I participated during the entire procedure (does not need to include opening and closing). (Please see the Surgical Encounter Summary for any Implant and Specimen details pertinent to this patient.) documented in this encounter Plan of Treatment Not on file documented as of this encounter Procedures Procedure Name Priority Date/Time Associated Diagnosis Comments SPECIMEN TO PATHOLOGY Routine 10/02/2017 2:13 PM EDT SPECIMEN TO PATHOLOGY Routine 10/02/2017 1:25 PM EDT SURGICAL PATHOLOGY REPORT Routine 10/02/2017 1:24 PM EDT FACIAL NERVE MONITORING, SETUP LARYNGEAL (WRVU 1.57) 10/02/2017 11:30 AM EDT THYROID NODULE THYROIDECTOMY, TOTAL OR COMPLETE (WRVU 15.04) 10/02/2017 11:30 AM EDT THYROID NODULE documented in this encounter Results * Specimen to Pathology (10/02/2017 2:13 PM EDT) AP Specimen 10/02/2017 2:13 PM EDT 10/02/2017 2:13 PM EDT Narrative [facility] - 10/02/2017 2:13 PM EDT Specimen requisition ordered. ??Separate Pathology report to follow Mane Barros MD PATHOLOGY/CYTOLOG Y ORDERABLES Performing Organization Address [facility] [place] [address] * Specimen to Pathology (10/02/2017 1:25 PM EDT) AP Specimen 10/02/2017 1:25 PM EDT 10/02/2017 1:25 PM EDT Narrative [facility] - 10/02/2017 1:25 PM EDT Specimen requisition ordered. ??Separate Pathology report to follow Mane Barros MD PATHOLOGY/CYTOLOG Y ORDERABLES Performing Organization Address [facility] [place] [address] * Surgical Pathology Report (10/02/2017 1:24 PM EDT) FINAL DIAGNOSIS (AP) [id number] ? Location: [facility]; [facility]; A The signing pathologist has (i) examined the relevant preparation(s) for the specimen(s) and (ii) rendered or confirmed the diagnosis(es). . 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 - Chronic lymphocytic (Maya) thyroiditis. B - Left lobe of thyroid, excision: - Chronic lymphocytic (Maya) thyroiditis with ?chronic/sclerosing change. Electronically signed by: ??Preston Gooden MD Verified: ??10/09/2017 ?Pathologist Performed at: ??-[facility] Dept. of Pathology, [place], [place] ADDITIONAL STUDIES Whole slide scan: sales representative education courses slides Multiple deeper levels examined for select blocks. Immunohistochemistry Studies: Formalin-fixed, paraffin-embedded tissue sections are studied using the polymer technique with appropriate positive and negative controls. ?These IHC studies provide the pathologist with adjunctive diagnostic information. Antibody specificity has been verified by testing antibodies on a series of in-house tissues with known immunohistochemical performance characteristics. The clinical interpretation of any antibody positive staining or its absence is evaluated within the context of clinical presentation, morphology, histopathological criteria and other diagnostic tests. Block ? Antibody ?Result (Positive/Negative) A7 ? CD31 ? Highlights vessels CLINICAL INFORMATION Specimen Submitted: A - Right thyroid lobe and isthmus B - Left lobe of thyroid Clinical History and Diagnosis: Thyroid nodule SPECIMEN PROCESSING A - Labeled/Fixative: Right thyroid lobe and isthmus, fresh. Qty./Size/Weight: 4.0 x 3.5 x 2.0 cm, 11.85 g. SPECIMEN DESCRIPTION Resection Specimen: Right hemithyroidectomy and isthmus. External Surface: Smooth and glistening in the frontal side and rough on the posterior side. Parathyroids: Absent. LESION Location: Right lobe, extending from the superior to the inferior pole. Description: Round, circumscribed, multinodular. Size: 3.1 x 1.9 x 1.2 cm. Contour/capsule: Well circumscribed. Remaining parenchyma: pale-brown. Ink Designations: External surface inked black. . SPECIMEN PROCESSING SECTIONS/PROCESSING: (1-6) sales representative education courses sections including the entire lesion and sales representative education courses normal parenchyma going from cranial to caudal; (7) caudal part of the lesion serially sectioned. (R7) B - Labeled/Fixative: Left lobe of thyroid, fresh. Qty./Size/Weight: 3.7 x 2.4 x 1.1 cm, 3.99 g. SPECIMEN DESCRIPTION Resection Specimen: Left Hemithyroidectomy. External Surface: Smooth and glistening in the frontal side and rough on the posterior side. Parathyroids: Absent. LESION Location: Left lobe, expanding from the superior to the lower pole. Description: Multiple multinodular, pale white circumscribed lesions. Size: ranging from 0.9-1.2 cm. Contour/capsule: Well-circumscribed. OTHER Remaining parenchyma: Pale-brown. SECTIONS/PROCESSING: (1-11) left lobe serially sectioned and entirely submitted going from cranial to caudal. (T11) ??aemr/shb 10/09/2017 8:14 AM EDT [facility] 10/02/2017 1:24 PM EDT Mane Barros MD PATHOLOGY/CYTOLOG Y ORDERABLES [facility] [place] [address] documented in this encounter Visit Diagnoses Diagnosis Multinodular goiter Nontoxic multinodular goiter Maya's thyroiditis Chronic lymphocytic thyroiditis documented in this encounter Administered Medications Inactive Administered Medications - up to 3 most recent administrations Medication Order MAR Action Action Date Dose Rate Site acetaminophen (TYLENOL) tablet 1,000 mg 1,000 mg, Oral, ONCE, 1 dose, On Sun10/02/17 at 0930, Administer with SIP of H2O only., Day of Surgery (Day of Procedure), Routine Given 10/02/2017 9:30 AM EDT 1,000 mg fentaNYL (PF) 50mcg/mL injection 12.5-25 mcg, Intravenous, EVERY 5 MIN PRN, Starting on Sun10/02/17 at 1454, Until Tu10/02/17 at 1756, Pain, Give 12.5 mcg every 5 minutes PRN for mild to moderate pain (1-5) Give 25 mcg every 5 minutes PRN for moderate to severe pain (6-10). Hold for respiratory rate less than 10 per minute. Maximum dose 250 mcg over one hour. If ordered with hydromorphone or morphine, give hydromorphone or morphine first and use fentanyl for breakthrough pain., PACU Recovery, Routine Given 10/02/2017 3:37 PM EDT 25 mcg gabapentin (NEURONTIN) capsule 600 mg 600 mg, Oral, ONCE, 1 dose, On Sun10/02/17 at 0930, Administer with SIP of H2O only., Day of Surgery (Day of Procedure), Routine Given 10/02/2017 9:30 AM EDT 600 mg ketorolac (TORADOL) injection 15 mg 15 mg, Intravenous, EVERY 6 HOURS PRN, Starting on Sun10/02/17 at 1452, Until Tu10/02/17 at 1956, Pain, Routine Given 10/02/2017 3:26 PM EDT 15 mg labetalol (NORMODYNE,TRANDATE) injection 20 mg 20 mg, Intravenous, EVERY 4 HOURS PRN, Starting on Sun10/02/17 at 1452, Until 10/02/17 at 1956, High Blood Pressure, sbp>160, Routine Given 10/02/2017 3:25 PM EDT 20 mg lactated Ringers infusion 1,000 mL 1,000 mL, at 100 mL/hr, Intravenous, CONTINUOUS, Starting on Sun10/02/17 at 0930, Until Tu10/02/17 at 1756, Day of Surgery (Day of Procedure) New Bag 10/02/2017 1:28 PM EDT New Bag 10/02/2017 11:21 AM EDT New Bag 10/02/2017 9:30 AM EDT 1,000 mLs 100 mL/hr documented in this encounter Active and Recently Administered Medications Times are shown in EDT. Scheduled Medication Order 09/30/2017 10/01/2017 10/02/2017 acetaminophen (TYLENOL) tablet 1,000 mg (COMPLETED) 1,000 mg, Oral, ONCE, 1 dose, On Sun10/02/17 at 0930, Administer with SIP of H2O only., Day of Surgery (Day of Procedure), Routine 929 (Given - Provid er: Lola Musa RN) gabapentin (NEURONTIN) capsule 600 mg (COMPLETED) 600 mg, Oral, ONCE, 1 dose, On Sun10/02/17 at 0930, Administer with SIP of H2O only., Day of Surgery (Day of Procedure), Routine 0930 (Given - Provid er: Lola Musa RN) Continuous Medication Order 09/30/2017 10/01/2017 10/02/2017 lactated Ringers infusion 1,000 mL (CANCELED) 1,000 mL, at 100 mL/hr, Intravenous, CONTINUOUS, Starting on Sun10/02/17 at 0930, Until Sun10/02/17 at 1756, Day of Surgery (Day of Procedure) 0930 (New Bag - Prov ider: Lola Musa RN)1121 (New Bag - Provider: Tania Frausto MD)1327 (Anesthesia Volume Adjustment - Provider: Tania Frausto MD)1328 (New Bag - Provider: Tania Frausto MD) PRN Medication Order 09/30/2017 10/01/2017 10/02/2017 acetaminophen (TYLENOL) tablet 650 mg 650 mg, Oral, EVERY 4 HOURS PRN, Starting on Sun10/02/17 at 1452, Until Tu10/02/17 at 1956, Pain, Maximum dose of acetaminophen is 4000 mg from all sources in 24 hours., Routine BUpivacaine (PF) (MARCAINE) 0.5 % (5 mg/mL) injection (CANCELED) ONCE PRN, Starting on Sun10/02/17 at 1205, Until Tu10/02/17 at 1956, Intra-Operative (Intra-Procedure), Routine 1205 (Given - Provid er: Mane Barros MD - Comment: 5mL of 0.5% bupivacaine mixed 1:1 with 5ml of 1% lidocaine with epinephrine 1:200,000 for a total of 10mL. Injected prior to surgery start.) fentaNYL (PF) 50mcg/mL injection (CANCELED) 12.5-25 mcg, Intravenous, EVERY 5 MIN PRN, Starting on Sun10/02/17 at 1454, Until 10/02/17 at 1756, Pain, Give 12.5 mcg every 5 minutes PRN for mild to moderate pain (1-5) Give 25 mcg every 5 minutes PRN for moderate to severe pain (6-10). Hold for respiratory rate less than 10 per minute. Maximum dose 250 mcg over one hour. If ordered with hydromorphone or morphine, give hydromorphone or morphine first and use fentanyl for breakthrough pain., PACU Recovery, Routine 1537 (Given - Provid er: Sangita Lomeli RN) ketorolac (TORADOL) injection 15 mg 15 mg, Intravenous, EVERY 6 HOURS PRN, Starting on Sun10/02/17 at 1452, Until Sun10/02/17 at 1956, Pain, Routine 1526 (Given - Provid er: Sangita Lomeli RN) labetalol (NORMODYNE,TRANDATE) injection 20 mg 20 mg, Intravenous, EVERY 4 HOURS PRN, Starting on Sun10/02/17 at 1452, Until Sun10/02/17 at 1956, High Blood Pressure, sbp>160, Routine 1525 (Given - Provid er: Sangita Lomeli RN) lidocaine (XYLOCAINE) 10 mg/mL (1 %) injection 3 mg (COMPLETED) 3 mg (0.3 mL), Subcutaneous, ONCE PRN, 1 dose, Starting on Sun10/02/17 at 0906, Until Sun10/02/17 at 1147, for discomfort with PIV insertion, Day of Surgery (Day of Procedure), Routine 1147 (Given - Provid er: Tania Frausto MD) lidocaine-EPINEPHrine 1 %-1:200,000 injection (CANCELED) ONCE PRN, Starting on Sun10/02/17 at 1205, Until Sun10/02/17 at 1956, Intra-Operative (Intra-Procedure), Routine 1205 (Given - Provid er: Mane Barros MD - Comment: 5mL of 0.5% bupivacaine mixed 1:1 with 5ml of 1% lidocaine with epinephrine 1:200,000 for a total of 10mL. Injected prior to surgery start.) No Frequency Medication Order 09/30/2017 10/01/2017 10/02/2017 acetaminophen (TYLENOL) 500 mg tablet 1 dose, Starting on Sun10/02/17 at 1656, Until Sun10/02/17 at 1956, LOMELI, SANGITA B.: cabinet override 1700 (Due) documented in this encounter Care Teams Clerk Guide Relationship Specialty Start Date End Date Rell Brady MD [address] [place] [address] PCP - General 02/15/12 documented as of this encounter
--- OUTSIDE RECORDS SUMMARY | 2023-09-25 02:45 | XMS_ITS | Encounter Summary ---
Author Organization [facility] [place] [address] Care Team Providers Care Insole Tack Puller Hand Name Role Phone Rell Brady MD Primary Care Provider [phone] Encounter Details Date Type Department Care Team (Late st Contact Info) Description 09/27/2020 Interpretation Only [address] [phone] Neeraj Flannery MD [address] [place] [address] Social History Tobacco Use Types Packs/Day Years Used Date Smoking Tobacco: Never Assessed Sex and Gender Information Value Date Recorded Sex Assigned at Not on file Gender Identity Not on file Sexual Orientation Not on file documented as of this encounter Plan of Treatment Not on file documented as of this encounter Procedures Procedure Name Priority Date/Time Associated Diagnosis Comments XR CHEST ONE VIEW STAT 09/27/2020 10: 41 AM EDT documented in this encounter Results * XR Chest One View (09/27/2020 10:41 AM EDT) PT CLASS E RAD ADMITDTTM RAD PT RAD INFO [id number]^F INDLEY^POLLY GONZALES CHAD RAD EXAM DESC XCXR1^XR CHEST 1 VIEW^RIS RAD Anatomical Region Laterality Modality Chest N/A Radiographic Miryam ging Impressions 09/27/2020 11:53 AM EDT 1. ??Focal silhouetting of the dominant left hemidiaphragm is of uncertain significance; this could represent aspiration, small focal area of atelectasis or early airspace opacity. Consider follow-up PA and lateral chest radiograph. 2. ??Sclerotic lesion in the proximal left humerus is of uncertain etiology and significance. Clinical correlation is needed to determine if there is associated pain and also presence or absence of history of malignancy. Consider left shoulder radiographs or bone scan for further assessment. I have personally reviewed the image(s) and the resident's interpretation and agree with the findings, Mary Hemphill MD at 09/27/2020 11:53 AM Thank you for letting us participate in the care of this patient. ??If you are a health care provider and have any questions regarding this report, please contact the number below. ??For patients who have questions please contact the health career placement specialist that requested your imaging first. ? Electronically signed by: Mary Hemphill MD, [facility] ([phone]), at 09/27/2020 11:53 AM Narrative 09/27/2020 11:53 AM EDT EXAMINATION: XR CHEST 1 VIEW CLINICAL HISTORY: chest pain TECHNIQUE: AP portable upright view of the chest. COMPARISON: None FINDINGS: The lungs are well-inflated. Right lung is clear. Left lung appears clear however there is focal silhouetting of the dome of the left hemidiaphragm. No pneumothorax or pleural effusion. Cardiomediastinal silhouette, iris, pulmonary vasculature are unremarkable. Poorly circumscribed sclerotic lesion in the left humeral neck, osseous structures are otherwise unremarkable. Procedure Note Mary Hemphill MD - 09/27/2020 EXAMINATION: XR CHEST 1 VIEW CLINICAL HISTORY: chest pain TECHNIQUE: AP portable upright view of the chest. COMPARISON: None FINDINGS: The lungs are well-inflated. Right lung is clear. Left lung appearsclear however there is focal silhouetting of the dome of the left hemidiaphragm.No pneumothorax or pleural effusion. Cardiomediastinal silhouette, iris,pulmonary vasculature are unremarkable. Poorly circumscribed sclerotic lesion in the left humeral neck, osseous structures are otherwise unremarkable. IMPRESSION 1. Focal silhouetting of the dominant left hemidiaphragm is ofuncertain significance; this could represent aspiration, small focal area ofatelectasis or early airspace opacity. Consider follow-up PA and lateral chestradiograph. 2. Sclerotic lesion in the proximal left humerus is of uncertain etiologyand significance. Clinical correlation is needed to determine if there isassociated pain and also presence or absence of history of malignancy. Considerleft shoulder radiographs or bone scan for further assessment. I have personally reviewed the image(s) and the resident's interpretationand agree with the findings, Mary Hemphill MD at 09/27/2020 11:53 AM Thank you for letting us participate in the care of this patient. If youare a health care provider and have any questions regarding this report,please contact the number below. For patients who have questions please contactthe health career placement specialist that requested your imaging first. Electronically signed by: Mary Hemphill MD, [facility]([phone]), at 09/27/2020 11:53 AM Neeraj Flannery MD IMG DX ORDERABL ES documented in this encounter Visit Diagnoses Not on filedocumented in this encounter Care Teams Insole Tack Puller Hand Relationship Specialty Start Date End Date Rell Brady MD [address] [place] [address] PCP - General 02/15/12 documented as of this encounter
--- OUTSIDE RECORDS SUMMARY | 2023-09-25 02:45 | XMS_ITS | Clinical Summary ---
Author Organization [facility] [place] [address] Care Team Providers Care Laser Systems Engineer Name Role Phone Rell Brady MD Primary Care Provider [phone] Allergies No known active allergies Medications Medication Sig Dispensed Refills Start Date End Date Status levothyroxine (SYNTHROID) 150 mcg Tablet Take 1 tablet by mouth daily. 90 tablet 08/08/2018 Active Active Problems Problem Noted Date Diagnosed Date Chest pain 03/12/2018 Immunizations Name Administration Dates Next Due Influenza Quadrivalent, Preservative Free 2020 Moderna Covid-19 Monovalent 12Yr+ (Business Office Assistant 100mcg) 12/24/2020,05/11/2020,04/13/2020 Family History Medical History Relation Comments Cerebrovascular Accident Father Cerebrovascular Accident Mother Relation Status Comments Brother Alive Father Mother Sister Alive Social History Tobacco Use Types Packs/Day Years Used Date Smoking Tobacco: Never Smokeless Tobacco: Never Alcohol Use Standard Drinks/Week Comments Yes 0 (1 standard drink = 0.6 oz pur e alcohol) Sex and Gender Information Value Date Recorded Sex Assigned at Not on file Gender Identity Not on file Sexual Orientation Not on file Last Filed Vital Signs Vital Sign Reading Time Taken Comments Blood Pressure 155/95 03/13/2018 12:51 PM EST KalaniELMIRAN notified, no changes needed Pulse 78 03/13/2018 12:51 PM EST Temperature 36.7 ??C (98.1 ??F) 03/13/2018 1 2:51 PM EST Respiratory Rate 14 03/13/2018 12:5 1 PM EST Oxygen Saturation 95% 03/13/2018 12: 51 PM EST Inhaled Oxygen Concentration - - Weight 90.7 kg (200 lb) 03/12/2018 12:1 4 PM EST Height 175.3 cm (5' 9) 03/12/2018 12:1 4 PM EST Body Mass Index 29.53 03/12/2018 12:14 PM EST Plan of Treatment Health Maintenance Due Date Last Done Comments CT Colonography 1959 Colonoscopy 1959 Colorectal Cancer Screening 1959 FIT DNA 1959 FIT 1959 Sigmoidoscopy (10 year) with FIT yearly 1959 Sigmoidoscopy 1959 HIV screen 10/24/1977 Hepatitis C Screening 10/24/1977 Tdap adult 10/24/1978 Tetanus vaccine 10/24/1978 HPV test 10/24/1989 PAP Smear 10/24/1989 Breast Cancer Share Decision Needed 1999 Breast Cancer screening 1999 Zoster vaccine (1 of 2) 10/24/2009 Advance Directive 10/24/2014 Covid-19 Vaccine (4 - 2022-2 4 season) 2022 12/24/2020, 05/11/2020, 04/13/2020 Influenza (Flu) vaccine (1 o f 1 - Influenza standard series) 10/28/2023 12/08/2020 Diabetes Screening (HgbA1C o r Glucose) Discontinued 03/12/2018 Procedures Procedure Name Priority Date/Time Associated Diagnosis Comments BASIC METABOLIC PANEL (NON-FASTING) STAT 03/12/2018 12:21 PM EST from Last 3 Months or Most Recently Relevant to Health Maintenance Results * Basic Metabolic Panel (non-fasting) (03/12/2018 12:21 PM EST) Glucose Lvl 81 65 - 199 mg/dL [facility] Comment:Diabetes: >=200 mg/d L plus symptoms BUN 14 8 - 18 mg/dL [facility] Creatinine 0.86 0.70 - 1.20 mg/dL [facility] Sodium 144 135 - 145 mmol/L [facility] Potassium 4.0 3.5 - 5.0 mmol/L [facility] Comment: Please note: ??Patients with WBC >100,000 may have falsely elevated Potassium levels. ??For accurate Potassium quantification in these patients send serum separator tube (gold top) for subsequent determinations. ??Contact the Clinical Chemistry Laboratory if there are any questions. Chloride 105 98 - 107 mmol/L [facility] CO2 24 22 - 31 mmol/L [facility] Anion Gap 15 5 - 15 mmol/L [facility] Calcium 9.5 8.5 - 10.5 mg/dL [facility] Estimated GFR 74 >=60 mL/min/1. 73 m?? [facility] Comment: The eGFR was calculated using the CKD-EPI equation. As with all creatinine based estimates of kidney function, eGFR values calculated with the CKD-EPI equation are not accurate in patients with acute kidney failure, extremes of body mass or the acutely ill. [email or web address]/[email or web address] eGFR 86 >=60 mL/min/1. 73 m?? [facility] Comment: The eGFR was calculated using the CKD-EPI equation. As with all creatinine based estimates of kidney function, eGFR values calculated with the CKD-EPI equation are not accurate in patients with acute kidney failure, extremes of body mass or the acutely ill. [email or web address] Blood specimen (specimen) 03/12/2018 12:21 PM EST 03/12/2018 12:34 PM EST Narrative Resulting Agency Comment Spec In Lab Francesco Cruz MD CHEMISTRY ORDERABLES [facility] [place] [address] from Last 3 Months or Most Recently Relevant to Health Maintenance Advance Directives * Full Code (Latest Code Status on File) Date Activated Date Inactivated Comments 03/12/2018 4:14 PM 03/13/2018 3:10 PM Question Answer Comments Does patient have capacity to make decision: Yes * Full Code Date Activated Date Inactivated Comments 10/02/2017 9:34 AM 10/02/2017 7:56 PM Question Answer Comments Does patient have capacity to make decision: Yes Content of discussion: Periprocedural CPR discus sed Care Teams Laser Systems Engineer Relationship Specialty Start Date End Date Rell Brady MD [address] [facility] [address] [place] [address] PCP - General 02/15/12
--- OUTSIDE RECORDS SUMMARY | 2023-09-25 02:45 | XMS_ITS | Encounter Summary ---
Author Organization [facility] Address [facility] [address] Care Team Providers Care Medical Malpractice Paralegal Name Role Phone Rell Brady MD Primary Care Provider [phone] Reason for Visit * Auth/Cert Specialty Diagnoses / Procedures Referred By Contac t Referred To Contact Diagnoses THYROID NODULE Procedures PRO THYROIDECTOMY PRG EMG, LARYNX THYROIDECTOMY, TOTAL OR COMPLETE (WRVU 15.04) FACIAL NERVE MONITORING, SETUP LARYNGEAL (WRVU 1.57) Referral ID Status Reason Start Date Expiration Date Visits Re quested Visits Authorized [id number] 1 1 Encounter Details Date Type Department Care Team (Late st Contact Info) Description 10/02/2017 11:25 AM EDT Anesthesia Event [place] [address] [facility] [place] [address] [facility] [place] [address] Anesthesia Record Procedure Summary Procedure Name Responsible Anesthesiologist Anesthesia Start Time Anesthesia Stop Time THYROIDECTOMY, TOTAL OR COMPLETE (WRVU 15.04) (Neck) Neeraj Collier MD 10/02/17 1125 10/02/17 1453 Events Date Time Event Comment 10/02/2017 0934 1125 Start 1130 AN Verify 1137 An Induction 1138 An Intubation 1147 An Start Data 1147 Anesthesia Ready 1218 Procedure Start 1252 Quick Note Medical student leaning against NIBP cuff 1259 Quick Note Cuff moved to L calf 1425 Handoff Intra-procedure anesthesia care was transferred after review of the patient's history, current anesthetic/surgical status and plan, according to the ANES Provider Handoff Checklist. 1441 Extubation/LMA Out 1445 an stop data 1453 Recovery or ICU Handoff Kassandra ent care was transferred to the destination unit staff after review of the patient's medical history, current anesthetic/surgical status and plan, according to the Provider Handoff Checklist. 1453 Stop Meds Name Total Midazolam 2 mg fentaNYL 175 mcg IV Lidocaine 10 mg Propofol 310 mg Rocuronium 5 mg PHENYLephrine 160 mcg ePHEDrine 5 mg Ondansetron 4 mg Dexamethasone 8 mg lidocaine (XYLOCAINE) 10 mg/mL (1 %) inj ection 3 mg 1 mL Propofol INF 1,723.3 mg Dexmedetomidine 56 mcg lactated Ringers infusion 1,000 mL 1,000 mL * Agents Name O2 Air N2O Sevoflurane (et) * Blood No blood administrations on file. Lines, Drains, and Airways Type Details Placement Removal (RETIRED) Peripheral IV Line - Single Lumen 10/02/17; 917; metacarpal vein (top of hand), left; [id number] catheter system; 20 gauge; catherine Musa; 10/02/17; 1756 10/02/17 09 by Lola Musa RN 10/02/17 175 by Sangita Caraballo RN ETT Mask Ventilation: Ea sy (1); ETT Type: Cuffed, Oral; ETT Size: 7 mm; Mac Blade: 3; Notes: Asleep, Pre-O2; Attempts: 1; Laryngoscopy Grade: 1; ETT Placement Verified By: Auscultation, Capnometry, Visual; Secured at Teeth: 21 cm; Inserted by: Lisbet BARAHONA; Removal Date: 10/02/17; Removal Time: 1441 10/02/17 1152 by Tania Frausto MD 10/02/17 1441 by Tania Frausto MD Incision 10/02/17; 1219; neck ; horizontal; 10/24/21 (LDA cleanup utility RA#[id number]); 1715 (LDA cleanup utility RA#[id number]) 10/02/17 1219 by Celsa Camarillo RN 10/24/21 1715 by David Escobar documented in this encounter Social History Tobacco Use Types Packs/Day Years Used Date Smoking Tobacco: Never Smokeless Tobacco: Never Sex and Gender Information Value Date Recorded Sex Assigned at Not on file Gender Identity Not on file Sexual Orientation Not on file documented as of this encounter OR Notes * Anesthesia Postprocedure Evaluation - Tania Frausto MD - 10/02/2017 3:00 PM EDT [facility] Department of Anesthesiology Post-procedure Note Patient: Luis Still Procedure Summary Date Anesthesia Start Anesthesia Stop Room / Location 10/02/17 1125 1453 MH OR MH MAIN OR Procedure Diagnosis Surgeon Responsible Provider THYROIDECTOMY, TOTAL OR COMPLETE (WRVU 15.04) (N/A Neck); FACIAL NERVE MONITORING, SETUP LARYNGEAL (WRVU 1.57) (N/A Neck) (THYROID NODULE) Yesi Velasquez MD Chinn, Christopher D, MD All Anesthesia Providers: Anesthesiologist: Neeraj Collier MD; Beny Damian MD Planting Machine Operator: Tania Frausto MD Most Recent Vitals: 10/02/17 1515 BP: Pulse: 74 Resp: 15 Temp: SpO2: 97% Pain Patient Location: PACU/[facility] Level of Consciousness: Lethargic Pain Management: Satisfactory Analgesia PONV: None Cardiovascular Status: At Baseline Respiratory Status: Supplemental O2 (NC or FM) Postoperative Fluid Status: Intravascular EUvolemia Possible Anesthetic Complications: NONE apparent at time of evaluation Final Primary Anesthesia Type: General (The anesthetic type performed was the same as planned.) Comments: Per chart review; transitioned to without issue * Anesthesia Preprocedure Evaluation - Beny Damian MD - 10/01/2017 3:59 PM EDT Pre-Anesthesia Evaluation for: Luis Still a 56 y.o. female. Procedure(s): THYROIDECTOMY, TOTAL OR COMPLETE (WRVU 15.04) FACIAL NERVE MONITORING, SETUP LARYNGEAL (WRVU 1.57) There are no active problems to display for this patient. Past Medical History: Diagnosis Date ??? Hypothyroidism ??? Tendinitis Past Surgical History: Procedure Laterality Date ??? APPENDECTOMY 1970s ??? HEMORRHOID SURGERY Social History Substance Use Topics ??? Smoking status: Never Smoker ??? Smokeless tobacco: Never Used ??? Alcohol use Not on file History Drug Use Not on file No Known Allergies Medications: MAR and/or home medications have been reviewed. Physical Exam: There were no vitals filed for this visit. There is no height or weight on file to calculate BMI. Airway Assessment: Mallampati: II TM distance: >3 FB Neck ROM: full Cardiovascular Assessment: cardiovascular exam normal Pulmonary Assessment: pulmonary exam normal Dental Assessment: - normal exam Misc Assessment: Anesthesia Plan: ASA 2 general, with a(n) intravenous induction Luis Still is a very pleasant and active 56 y.o. female 93kg never smoker with a hx significantfor Mel's disease and multiple thyroid nodules with increased compressive symptoms including snoring presenting for the following procedure(s): Procedure(s): THYROIDECTOMY, TOTAL OR COMPLETE (WRVU 15.04) FACIAL NERVE MONITORING, SETUP LARYNGEAL (WRVU 1.57) Allergies: No Known Allergies Anesthesia Hx: no airway records NPO status: adequate Pt activity level prior to surgery/admission to hospital: METs > 4 EKG no records - but has T wave inversion s/p work up including negative stress test at [facility] Labs: none recent Plan is for GA with ETT, standard ASA monitors, and adequate IV access. Facial nerve monitoring Appropriately fasted No FHAC No GERD Region - Other Informed Consent: PAT Staff Note documented in this encounter Plan of Treatment Not on file documented as of this encounter Visit Diagnoses Not on filedocumented in this encounter Administered Medications Inactive Administered Medications - up to 3 most recent administrations Medication Order MAR Action Action Date Dose Rate Site dexamethasone (DECADRON) injection PRN, Starting on Sun10/02/17 at 1221, Until Sun10/02/17 at 1453, Anesthesia Intra-op, Routine Given 10/02/2017 12:21 PM EDT 8 mg dexmedetomidine (PRECEDEX) injection PRN, Starting on Sun10/02/17 at 1200, Until Sun10/02/17 at 1453, Anesthesia Intra-op, Routine Given 10/02/2017 2:22 PM EDT 8 mcg Given 10/02/2017 2:06 PM EDT 8 mcg Given 10/02/2017 1:35 PM EDT 8 mcg ePHEDrine 5 mg/mL multi-dose injection PRN, Starting on Sun10/02/17 at 1155, Until Sun10/02/17 at 1453, Anesthesia Intra-op, Routine Given 10/02/2017 11:55 AM EDT 5 mg fentaNYL 50 mcg/mL multi-dose injection PRN, Starting on Sun10/02/17 at 1147, Until Sun10/02/17 at 1453, Pain, Anesthesia Intra-op, Routine Given 10/02/2017 2:06 PM EDT 25 mcg Given 10/02/2017 1:30 PM EDT 25 mcg Given 10/02/2017 12:47 PM EDT 25 mcg lactated Ringers infusion 1,000 mL 1,000 mL, at 100 mL/hr, Intravenous, CONTINUOUS, Starting on Sun10/02/17 at 0930, Until Sun10/02/17 at 1756, Day of Surgery (Day of Procedure) New Bag 10/02/2017 1:28 PM EDT New Bag 10/02/2017 11:21 AM EDT New Bag 10/02/2017 9:30 AM EDT 1,000 mLs 100 mL/hr lidocaine (PF) (XYLOCAINE) 100 mg/5 mL (2 %) injection PRN, Starting on Sun10/02/17 at 1137, Until Sun10/02/17 at 1453, Anesthesia Intra-op, Routine Given 10/02/2017 11:37 AM EDT 10 mg lidocaine (XYLOCAINE) 10 mg/mL (1 %) injection 3 mg 3 mg (0.3 mL), Subcutaneous, ONCE PRN, 1 dose, Starting on Sun10/02/17 at 0906, Until Sun10/02/17 at 1147, for discomfort with PIV insertion, Day of Surgery (Day of Procedure), Routine Given 10/02/2017 11:47 AM EDT 1 mL midazolam (PF) (VERSED) 1 mg/mL multi-dose injection PRN, Starting on Sun10/02/17 at 1125, Until Sun10/02/17 at 1453, Sleep, Anesthesia Intra-op, Routine Given 10/02/2017 11:25 AM EDT 2 mg ondansetron (ZOFRAN) injection PRN, Starting on Sun10/02/17 at 1422, Until Sun10/02/17 at 1453, Nausea, Anesthesia Intra-op, Routine Given 10/02/2017 2:22 PM EDT 4 mg PHENYLephrine in NS (PF) (BIANCA-SYNEPHRINE) 0.8 mg/10 mL (80 mcg/mL) multi-dose injection Syrg PRN, Starting on Sun10/02/17 at 1155, Until Sun10/02/17 at 1453, Anesthesia Intra-op, Routine Given 10/02/2017 1:28 PM EDT 80 mcg Given 10/02/2017 11:55 AM EDT 80 mcg propofol (DIPRIVAN) 10 mg/mL bolus injection (Anesthesia) PRN, Starting on Sun10/02/17 at 1137, Until Sun10/02/17 at 1453, Anesthesia Intra-op Given 10/02/2017 2:06 PM EDT 30 mg Given 10/02/2017 12:28 PM EDT 30 mg Given 10/02/2017 12:20 PM EDT 50 mg propofol (DIPRIVAN) infusion CONTINUOUS PRN, Starting on Sun10/02/17 at 1138, Until Sun10/02/17 at 1453, Anesthesia Intra-op, Routine Rate/Dose Change 10/02/2017 2:24 PM EDT 75 mcg/kg/min 40.8 mL/hr Rate/Dose Change 10/02/2017 1:12 PM EDT 100 mcg/kg/min 54. 4 mL/hr Rate/Dose Change 10/02/2017 12:31 PM EDT 150 mcg/kg/min 81 .6 mL/hr rocuronium (ZEMURON) multi-dose injection PRN, Starting on Sun10/02/17 at 1200, Until Sun10/02/17 at 1453, Anesthesia Intra-op, Routine Given 10/02/2017 12:00 PM EDT 5 mg documented in this encounter Care Teams Medical Malpractice Paralegal Relationship Specialty Start Date End Date Rell Brady MD [address] [place] [address] [address] [place] [address] PCP - General 02/15/12 documented as of this encounter
--- OUTSIDE RECORDS SUMMARY | 2023-09-25 02:45 | XMS_ITS | Continuity of Care Document ---
Author Organization [facility] Address [address] [place] [address] Care Team Providers Care Concrete Spreader Name Role Phone Deysi Painter Primary Care Physician Encounter [facility] [id number] Date(s): 07/12/23 - 07/12/23 [facility] [address] [place] [address] Discharge Disposition: Home Allergies, Adverse Reactions, Alerts Substance Reaction Severity Status lisinopril Unknown Active propoxyphene napsylate Unknown Activ e Assessment and Plan Future Appointments Medications amLODIPine 5 mg oral tablet 5 mg = 1 tab, Oral, Daily, # 30 tab, 0 Refill(s) Start Date: 07/05/23 Status: Ordered atorvastatin 10 mg oral tablet 10 mg = 1 tab, Oral, Daily, # 30 tab, 0 Refill(s) Start Date: 07/05/23 Status: Ordered levothyroxine 125 mcg (0.125 mg) oral capsule 125 mcg = 1 cap, Oral, Daily, # 30 cap, 0 Refill(s) Start Date: 07/05/23 Status: Ordered losartan 100 mg oral tablet 100 mg = 1 tab, Oral, Daily, # 30 tab, 0 Refill(s) Start Date: 07/05/23 Status: Ordered Turmeric 0 Refill(s) Start Date: 07/05/23 Status: Ordered zolpidem 5 mg oral tablet See Instructions, take 1-2 PO night of sleep study if needed, # 2 tab, 0 Refill(s), Pharmacy: [id number], 175.3, cm, 07/10/23 10:47:00 EDT, Height, 88, kg, 07/10/23 10:48:00 EDT, Weight Dosing Start Date: 07/10/23 Status: Ordered Problem List Condition Confirmation Course Effective Dates Status H ealth Status Informant ADHD (attention deficit hyperactivity disorder) Confirmed Active Atypical chest pain Confirmed Active Essential hypertension Confirmed Active Hyperlipidemia Confirmed Active Hypothyroidism Confirmed Active Obesity Confirmed Active Sensorineural hearing loss Confirmed Active Snoring Confirmed Active Patient Care team information Care Team Personnel Name: Deysi Painter DOUGH SHEETER Position: No Access Member Role: Primary Care Physician Address: Address: [address] Care Team Related Persons Name: YAMIL PARDO Address: Home [address] [place], [place] [id number]
--- OUTSIDE RECORDS SUMMARY | 2023-09-25 02:45 | XMS_ITS | Encounter Summary ---
Author Organization [facility] [place] [address] Care Team Providers Care Event Crew Technician Name Role Phone Rell Brady MD Primary Care Provider [phone] Encounter Details Date Type Department Care Team (Late st Contact Info) Description 03/09/2021 2:40 PM EST Public [place] [address] *Screening for COVID-19 virus Social History Tobacco Use Types Packs/Day Years [...] Procedure Name Priority Date/Time Associated Diagnosis Comments COVID-19 PCR Routine 03/09/2021 4:18 PM EST *Screening for COVID-19 virus documented in this encounter Results * COVID-19 PCR (03/09/2021 4:18 PM EST) SARS-CoV-2 RNA Not Detected Not Detected [facility] Comment: This result should be interpreted in combination with the clinical observations, patient history and epidemiological information in making a final diagnosis. For testing of asymptomatic individuals, assay performance characteristics and clinical utility have not been evaluated. Testing for SARS-CoV-2 (Severe acute respiratory syndrome coronavirus 2, formerly known as 2019 novel coronavirus or 2019-nCoV) to aid in the diagnosis of COVID-19 is performed using the [employer] m SARS-CoV-2 Assay as authorized by the FDA Emergency Use Authorization (EUA). This EUA assay is intended for In-vitro Diagnostic (IVD) use with respiratory specimens such as nasopharyngeal swabs collected from individuals during the acute phase of infection. This assay is performed based on the instructions for use provided by [employer] and additional guidance provided by CDC and FDA. Testing is performed in the [facility] within the Department of Pathology and Laboratory Medicine at [facility], certified under the Clinical Laboratory Improvement Amendments of 1988 (CLIA), 42 U.S.C. 263a, to perform high complexity tests. Assay performance has been verified according to clinical laboratory regulatory requirements for use with specimens collected from individuals suspected of COVID-19. Test results are provided above. A result of Not Detected indicates that the viral RNA target is not present above the limit of detection, but does not preclude SARS-CoV-2 infection. False negative results may occur if a specimen is improperly collected, transported or handled; if amplification inhibitors are present; or if inadequate numbers of viral particles are present in the specimen. When a diagnostic test is negative, the possibility of a false negative result should be considered in the context of a patient's recent exposures and the presence of clinical signs and symptoms consistent with COVID-19. A result of Detected indicates that RNA from SARS-CoV-2 was detected and the patient is infected. As required or requested by public health authorities, positive specimens may be sent for additional testing. Positive and negative predictive values for this test are highly dependent on disease prevalence. A result of Invalid indicates that neither the viral RNA targets nor the internal control target was detected. An invalid result suggests the presence of inhibitors. Recollection and re-testing is recommended in the case of an invalid result. CDC COVID-19 criteria for testing on human specimens and clinical management guidance information are available at the CDC Coronavirus Disease 2019 (COVID-19) webpage under Information for Healthcare Professionals (https://www.cdc.gov/coronavirus/2019-ncov/hcp/index.html) Additional information about this and other EUA tests can be found in provider and patient fact sheets at the following FDA website: https://www.fda.gov/medical-devices/pzsnscnuaih-hmupcen-8189-ypoub-65-knykolqnf- use-a nercdrcfgtqfw-zveggtx-wzojpuj/zqudf-cpfwvzmwelm-vntz SARS-Cov-2 RNA Source TECHNICAL APPLICATIONS SCIENTIST Swab [facility] Nasopharyngeal Swab 03/09/19 4:18 PM EST 03/09/2021 4:18 PM EST Comment:Symptoms->Asymptomat ic Narrative Resulting Agency Comment Spec In Lab Chavez Bond MD MICROBIOLOGY - GENER AL ORDERABLES [facility] [place] [address] documented in this encounter Visit Diagnoses Diagnosis Encounter for screening laboratory testing for COVID-19 virus documented in this encounter Care Teams Event Crew Technician Relationship Specialty Start Date End Date Rell Brady MD [address] [place] [address] PCP - General 02/15/12 documented as of this encounter
--- OUTSIDE RECORDS SUMMARY | 2023-09-25 02:45 | XMS_ITS | Encounter Summary ---
Author Organization [facility] Address [facility] [address] Care Team Providers Care Quality Control Supervisor Name Role Phone Rell Brady MD Primary Care Provider [phone] Reason for Visit * Reason Comments Medication Refill Encounter Details Date Type Department Care Team (Late st Contact Info) Description 07/22/2018 Refill [place] [address] Rell Burrell MD [facility] [place] [address] Social History Tobacco Use Types Packs/Day Years [...] on filedocumented in this encounter Care Teams Quality Control Supervisor Relationship Specialty Start Date End Date Rell Brady MD [address] [place] [address] PCP - General 02/15/12 documented as of this encounter
--- OUTSIDE RECORDS SUMMARY | 2023-09-25 02:45 | XMS_ITS | Encounter Summary ---
Author Organization [facility] Address [facility] [place] [address] Care Team Providers Care Cardiograph Operator Name Role Phone Rell Brady MD Primary Care Provider [phone] Reason for Visit * Reason Comments Establish Care * Consultation (Routine) - Closed Specialty Diagnoses / Procedures Referred By Dewayne pereira Referred To Contact General Surgery Diagnoses Nontoxic multinodular goiter Rell Burrell MD [facility] [place] [address] Yesi Velasquez MD [facility] [place] [address] Referral ID Status Reason Start Date Expiration Date V isits Requested Visits Authorized [id number] Closed Specialty Service Requested 08/03/2017 08/03/2018 1 1 Encounter Details Date Type Department Care Team (Late st Contact Info) Description 08/24/2017 1:00 PM EDT Office Visit [place] [address] Yesi Velasquez MD [facility] [place] [address] Nontoxic multinodular goiter Social History Tobacco Use Types Packs/Day Years Used Date Smoking Tobacco: Never Smokeless Tobacco: Never Sex and Gender Information Value Date Recorded Sex Assigned at Not on file Gender Identity Not on file Sexual Orientation Not on file documented as of this encounter Last Filed Vital Signs Vital Sign Reading Time Taken Comments Blood Pressure 159/86 08/24/2017 12:47 PM EDT Pulse 67 08/24/2017 12:47 PM EDT Temperature 36.6 ??C (97.9 ??F) 08/24/2017 12:47 PM E DT Respiratory Rate - - Oxygen Saturation 99% 08/24/2017 12:47 PM EDT Inhaled Oxygen Concentration - - Weight 93.6 kg (206 lb 5.6 oz) 08/24/2017 12:47 PM EDT Height 174.6 cm (5' 8.74) 08/24/2017 12:47 PM E DT Body Mass Index 30.7 08/24/2017 12:47 PM EDT documented in this encounter Progress Notes * Yesi Velasquez MD - 08/24/2017 1:00 PM EDT Endocrine Surgery Initial Consultation HPI: Ms. Luis Still is a 56 y.o. year old female referred by Dr. Burrell who presents for evaluation of multinodular goiter. This was initially noted visually by her friends, and has been followed by Dr. Burrell since 2005. She has been on Synthroid for a long time, and her dose is stable at 150 mcg daily. She denies symptoms of hyperthyroidism or hypothyroidism, and recent thyroid function testshave been normal. She is minimally symptomatic. She denies most compressive symptoms. She does report that she has been snoring more, especially if she sleeps on her back. She has gained 30-35 poundsin the past 2 years, but attributes this mainly to getting a new job which is more stressful. She also recently weaned off estradiol, which she was taking for hot pot flashes after menopause. She continues to have some hot flashes, but they are much better than they were a few years ago. There is not personal history of radiation exposure, and the patient has not had prior anterior neck surgery. There is not family history of endocrine tumors or malignancy. Imaging studies to date include [place] [facility] [place]. There is not a substernal component. 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 She is now referred to me for consideration of surgical management of her thyroid disease. Past Medical History: Diagnosis Date ??? Hypothyroidism ??? Tendinitis Past Surgical History: Procedure Laterality Date ??? APPENDECTOMY 1970s ??? HEMORRHOID SURGERY Current Outpatient Prescriptions on File Prior to Visit Medication Sig Dispense Refill ??? levothyroxine (SYNTHROID) 150 mcg Tablet Take 1 tablet by mouth daily. 90 tablet 3 ??? [DISCONTINUED] levothyroxine (SYNTHROID) 150 mcg Tablet TAKE ONE TABLET BY MOUTH EVERY DAY (Patient not taking: Reported on 07/09/2017) 90 tablet 1 ??? [DISCONTINUED] norethindrone-ethinyl estradiol (03/17) 1 mg-20 mcg (21)/75 mg (7) Tablet Take 1 tablet by mouth daily. TAKES *Estradiol- Norethindrone 0.5 mg/ 0.1mg No current facility-administered medications on file prior to visit. No Known Allergies Family History: 27 y/o daughter has Mel's. Her sister and her niece also have hypothyroidism.No thyroid cancer. No pituitary, pancreas or adrenal tumors. No parathyroid disease. Her parents lived to be 88 and 90. Social History: , has a grown daughter and son. 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 Nonsmoker. Has 1-2 drinks a day. She does not do any professional public speaking or singing. Review of Systems - 10 of 14 systems were reviewed with the patient and were negative except as perHPI Most Recent Vitals: 08/24/17 1247 BP: 159/86 Pulse: 67 Temp: 36.6 ??C (97.9 ??F) SpO2: 99% Body mass index is 30.7 kg/(m^2). Physical Exam: General: well-appearing, NAD Neuro: Alert and oriented x 3. Cranial nerves II-XII grossly intact. Eyes: no lid lag or proptosis ENT: Moist mucus membranes. Trachea midline Thyroid: nodular. Mobile with swallowing. Lymph: No palpable cervical lymphadenopathy CV: RRR Respiratory: Normal respiratory effort. Lungs clear bilaterally. Extremities well-perfused without edema Skin: warm and dry. No rashes Psych: appropriate affect Labs: Lab Results Component Value Date TSH 0.30 07/09/2017 Imaging: Thyroid, Parathyroid and Cervical Ultrasound I performed a thyroid, parathyroid and cervical ultrasound at the time of the clinic visit today using the 12 mHz linear ultrasound transducer. The thyroid, parathyroid and central and bilateral lateral neck lymph node basins were evaluated. Thyroid Isthmus: Thickness: 1.16 cm Nodules: There is a hypoechoic nodule measuring 2.73 x 1.26 x 2.39 cm. It has well-defined borders.There are not microcalcifications. There is normal vascularity. Right lobe: Lobe: 5.54 x 1.85 x 2.25 cm Nodules: There is an isoechoic nodule in the mid-lobe measuring 2.73 x 1.26 x 2.39, also without concerning ultrasound features. Left lobe: Lobe: 4.00 x 1.30 x 1.15 cm Nodules: heterogeneous and cobblestoned, consistent with known history of Mel's Cervical lymph nodes Central neck: Normal ultrasonographic appearing lymph nodes. Right lateral neck: Normal ultrasonographic appearing lymph nodes. Left lateral neck: Normal ultrasonographic appearing lymph nodes. A/P: Ms. 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 I therefore recommended total thyroidectomy. I discussed the risks of thyroidectomy including, but not limited to, laryngeal nerve injury resulting in voice changes or hoarseness, low calcium due to damage or removal of one or more parathyroid glands, bleeding which may require return to the operating room, post-operative infection and other complications related to anesthesia. The patient's questions were answered, and consent was obtained today. We will schedule surgery for the next mutually convenient date. The patient is not on anticoagulation/antiplatelet medication. She will not need a preoperative laryngoscopy. [facility] Body mass index is 30.7 kg/(m^2). Race: Patient Ethnicity & Race Ethnic Group Patient Race Not nor White Prior neck irradiation: no Prior anterior neck surgery: no Pre-operative laryngoscopy: no Anti-coagulation meds (aspirin, warfarin, clopidogrel, heparin, oral thrombin or factor Xa inhibitors): no Substernal component: no Symptoms of compression: no FNA: no FNA Classification: [place] n/a documented in this encounter Plan of Treatment Not on file documented as of this encounter Visit Diagnoses Diagnosis Nontoxic multinodular goiter documented in this encounter Care Teams Cardiograph Operator Relationship Specialty Start Date End Date Rell Brady MD [address] [facility] [address] [place] [address] PCP - General 02/15/12 documented as of this encounter
--- OUTSIDE RECORDS SUMMARY | 2023-09-25 02:45 | XMS_ITS | Encounter Summary ---
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 Name Role Phone Rell Brady MD Primary Care Provider [phone] Reason for Visit * Reason Comments Chest Pain * Auth/Cert Specialty Diagnoses / Procedures Referred By Contmari t Referred To Contact Diagnoses Chest pain Procedures EMERGENCY OBSVO Referral ID Status Reason Start Date Expiration Date Visits Re quested Visits Authorized [id number] 1 1 Encounter Details Date Type Department Care Team (Late st Contact Info) Description 03/12/2018 12:12 PM EST - 03/13/2018 1:00 PM [facility] [place] [address] Francesco Cruz MD [facility] [place] [address] Chest pain, unspecified type (Primary Dx) Discharge Disposition: Home Social History Tobacco Use [...] Blood Pressure 155/95 03/13/2018 12:51 PM EST NATHANIEL Uriarte notified, no changes needed Pulse 78 03/13/2018 [...] Mass Index 29.53 03/12/2018 12:14 PM EST documented in this encounter Discharge Instructions * Attachments The following attachments cannot be sent through Care Everywhere. * Chest Pain (Japanese) documented in this encounter Medications at Time of Discharge Medication Sig Dispensed Refills Start Date End Date levothyroxine (SYNTHROID) 150 mcg Tablet Take 1 tablet by mouth daily. 90 tablet 3 07/09/2017 07/22/2018 documented as of this encounter ED Notes * Noel Howard MD - 03/13/2018 12:20 PM EST Patient Name: Luis Still Patient Age: 57 y.o. Birthdate: 1960 Admit date: 03/12/2018 Attending Physician: No att. providers found CLINICAL DECISION UNIT - ED ATTENDING DAY OF DISCHARGE NOTE Reason for CDU Admission: Chest Pain Brief Clinical Summary: 57 y.o. female presented to ED with chest pain concerning for possible ACS.Initial evaluation in the ED did not reveal any objective evidence of cardiac ischemia or an alternative cause to explain the patient's pain. Subsequent course in the CDU also did not reveal any objective evidence of ischemia. Stress imaging was obtained and did not reveal evidence of ischemia. Thepatient is currently chest pain free with no new complaints. Discharge Vital Signs: BP (!) 152/95 (BP Location (NBP): Right arm, Patient Position: Lying) Pulse 78 Temp 37 ??C (98.6 ??F) (Oral) Resp 14 Ht 175.3 cm (5' 9) Wt 90.7 kg (200 lb) SpO2 93% BMI 29.53 kg/m?? Medical Decision Making: Chest pain of unclear etiology. ACS has essentially been ruled out given negative serial troponin, non-ischemic serial ECGs and non- ischemic stress imaging. Other life threatening causes of chest pain were considered and felt to be unlikely. There have been no other active clinical issues identified. I have determined that the patient meets criteria for discharge at this time. The discharge plan was reviewed with the patient, they have had an opportunity to ask questions, and are in agreement with the plan. The patient was seen in conjunction with Victorino Marrufo. Noel Howard MD 03/13/18 1220 * Christine Chauhan RN - 03/13/2018 11:15 AM EST Patient returns from stress testing, she states she tolerated it fairly well without chest pain, she states she did feel SOB. She notes an occipital headache but declines Tylenol at this time. The dressing at the previous IV site is dry and intact. She is going to try to rest. * Christine Chauhan RN - 03/13/2018 10:45 AM EST Patient's IV started to leak again at insertion site. They called from stress testing and asked about taking it out,they will d/c it. * Luis Ga LNA - 03/13/2018 2:04 AM EST Patient appears to be resting comfortably. * Christine Chauhan RN - 03/12/2018 6:20 PM EST Patient states the back of her neck feels tight and like a cramp. She states I think it from lying in bed all day. * Victorino Marrufo APRN - 03/12/2018 4:21 PM EST Patient Name: Luis Still Patient Age: 57 y.o. Birthdate: 1960 Admit date: 03/12/2018 Attending Physician: Francesco Cruz MD CLINICAL DECISION UNIT - ADMISSION NOTE Admit date: 03/12/2018 Attending Physician: Francesco Cruz MD Brief Summary of Patient Presentation: 57 y.o. female who presents to the Emergency Department withchest pain. The patient was in a meeting at work when around 1030 this morning she experienced intense chest pressure. She was not exerting herself and cannot think of any provoking factors at the time the chest pressure began. After approximately 15 minutes, the pain radiated to her back and jaw. Her coworkers note that the patient was very flushed during this time. EMS was called and the patient was brought to the ED. The patient was given Aspirin by EMS. She now reports that her pain feels much better, currently a /10. ?? The patient reports that she has a known history of T wave inversion which was discovered incidentally on a pre-surgery workup in approximately the year 1999. She reports that she underwent echocardiogram and stress test at that time which were both normal. Patient Active Problem List Diagnosis Code ??? Chest pain R07.9 No Known Allergies Past Medical History: Diagnosis Date ??? Hypothyroidism ??? Tendinitis Social History Socioeconomic History ??? Marital status: Spouse name: Not on file ??? Number of children: Not on file ??? Years of education: Not on file ??? Highest education level: Not on file Social Needs ??? Financial resource strain: Not on file ??? Food insecurity - worry: Not on file ??? Food insecurity - inability: Not on file ??? Transportation needs - medical: Not on file ??? Transportation needs - non-medical: Not on file Occupational History ??? Not on file Tobacco Use ??? Smoking status: Never Smoker ??? Smokeless tobacco: Never Used Substance and Sexual Activity ??? Alcohol use: Yes ??? Drug use: No ??? Sexual activity: Not on file Other Topics Concern ??? Do You live alone? Not Asked ??? Tobacco in Home Not Asked Social History Narrative ??? Not on file Family History Problem Relation Age of Onset ??? Cerebrovascular Accident Mother ??? Cerebrovascular Accident Father Review of Systems Focused Exam: BP 160/90 Pulse 79 Temp 36.7 ??C (98.1 ??F) (Oral) Resp 15 Ht 175.3 cm (5' 9) Wt 90.7 kg(200 lb) SpO2 97% BMI 29.53 kg/m?? Constitutional: oriented to person, place, and time. Appears well-developed and well-nourished. No distress. HENT: Head: Normocephalic and atraumatic. Eyes: EOM are normal. Neck: Normal range of motion. Neck supple. No JVD present. No tracheal deviation present. Cardiovascular: Normal rate and regular rhythm. Exam reveals no gallop and no friction rub. No murmur heard. Pulmonary/Chest: Effort normal and breath sounds normal. No respiratory distress. No wheezes. No rales. Exhibits no tenderness. Abdominal: Soft. Exhibits no distension. There is no tenderness. There is no rebound and no guarding. Normal bowel sounds Musculoskeletal: Exhibits no edema or tenderness. Neurological: Alert and oriented to person, place, and time. Skin: Skin is warm and dry. No rash noted. Not diaphoretic. No erythema. No pallor. Review of ED Course: H & PE Monitor Recent Results (from the past 24 hour(s)) Basic Metabolic Panel (non-fasting) Result Value Ref Range Glucose Lvl 81 65 - 199 mg/dL BUN 14 8 - 18 mg/dL Creatinine 0.86 0.70 - 1.20 mg/dL Sodium 144 135 - 145 mmol/L Potassium 4.0 3.5 - 5.0 mmol/L Chloride 105 98 - 107 mmol/L CO2 24 22 - 31 mmol/L Anion Gap 15 5 - 15 mmol/L Calcium 9.5 8.5 - 10.5 mg/dL eGFR 74 >=60 mL/min/1.73 m?? eGFR 86 >=60 mL/min/1.73 m?? Troponin Result Value Ref Range Troponin-T <0.01 0.00 - 0.00 ng/mL Blue Tube HOLD Result Value Ref Range Blue Hold Sample in lab. Hemogram Result Value Ref Range WBC 5.5 4.0 - 9.5 x10(3)/mcL RBC 4.97 4.00 - 5.21 x10(6)/mcL Hemoglobin 14.2 11.7 - 15.5 gm/dL Hematocrit 41.6 35.7 - 45.8 % MCV 83.7 82.6 - 94.4 fL MCH 28.6 27.1 - 32.0 pg MCHC 34.1 31.7 - 35.0 gm/dL Platelets 285 145 - 357 x10(3)/mcL RDWSD 41.0 37.0 - 46.0 fL RDWCV 13.3 11.5 - 14.1 % MPV 10.1 7.6 - 12.9 fL nRBC % Auto 0.0 % nRBC Abs Auto 0.000 0.000 - 0.000 x10(3)/mcL Differential, Automated Result Value Ref Range Neutrophils % 62.7 % Neutr Abs (ANC) 3.42 1.70 - 6.10 x10(3)/mcL Lymphocytes % 29.1 % Lymphocytes Abs 1.6 0.9 - 3.2 x10(3)/mcL Monocytes % 6.4 % Monocyte Abs 0.4 0.3 - 0.9 x10(3)/mcL Eosinophils % 1.1 % Eosinophils Abs 0.1 0.0 - 0.4 x10(3)/mcL Basophils % 0.5 % Basophils Abs 0.0 0.0 - 0.1 x10(3)/mcL Immature Gran % 0.20 % Annabelle Gran Abs 0.01 0.00 - 0.04 x10(3)/mcL Gold Tube HOLD Result Value Ref Range Gold Hold Sample in lab. D-Dimer, Quantitative Result Value Ref Range D-Dimer, Quant 447 0 - 500 FEU ng/ml CXR IMPRESSION No acute cardiopulmonary pathology identified. CDU Protocol Used: Chest pain Plan: Repeat Trop and EKG Exercise Stress test in the morning Victorino Marrufo APRN 03/12/18 1624 * Jodie Stephenson RN - 03/12/2018 1:47 PM EST Patient states symptoms have resolved and she is feeling better. * Jodie Stephenson RN - 03/12/2018 1:27 PM EST 1 sl nitro administered. Patient reports relief of back/shoulder pain. However is now reporting SOB. MD notified and at bed to assess patient. Patient remains hypertensive. * Jodie Stephenson RN - 03/12/2018 1:12 PM EST Patient resting comfortably on stretcher. States pain has subsided and she is feeling better. Hypertensive. No acute distress noted. No needs expressed at this time. * Jodie Stephenson RN - 03/12/2018 12:50 PM EST Patient ambulated to bathroom with steady gait. * Kristian Roberts - 03/12/2018 12:27 PM EST ED Resident Note Luis Still is a 57 y.o. female who presents to the ED with: Chief Complaint Patient presents with ??? Chest Pain HPI Luis Still is a 57 y.o. female who presents to the Emergency Department with chest pain. The patient was in a meeting at work when around 1030 this morning she experienced intense chest pressure.She was not exerting herself and cannot think of any provoking factors at the time the chest pressure began. After approximately 15 minutes, the pain radiated to her back and jaw. Her coworkers note that the patient was very flushed during this time. EMS was called and the patient was brought to the ED. The patient was given Aspirin by EMS. She now reports that her pain feels much better, currently a 2/10. The patient reports that she has a known history of T wave inversion which was discovered incidentally on a pre-surgery workup in approximately the year 1999. She reports that she underwent echocardiogram and stress test at that time which were both normal. Review of Systems: Review of Systems Constitutional: Negative for activity change, chills and fever. HENT: Negative for congestion, rhinorrhea, sinus pressure and sore throat. Eyes: Negative for discharge and visual disturbance. Respiratory: Positive for chest tightness and shortness of breath. Negative for cough. Cardiovascular: Positive for chest pain. Negative for palpitations and leg swelling. Gastrointestinal: Negative for abdominal distention, abdominal pain, blood in stool, constipation, diarrhea, nausea and vomiting. Genitourinary: Negative for difficulty urinating, dysuria, frequency, hematuria and urgency. Musculoskeletal: Positive for back pain (between shoulder blades). Negative for arthralgias and myalgias. Skin: Negative. Neurological: Negative for dizziness, syncope, weakness and headaches. Psychiatric/Behavioral: Negative. Physical Exam: Patient Vitals for the past 24 hrs: BP Temp Temp src Pulse Resp SpO2 Height Weight 03/12/18 1445 (!) 162/99 -- -- 69 10 98 % -- -- 03/12/18 1430 (!) 153/92 -- -- 72 15 97 % -- -- 03/12/18 1415 (!) 155/92 -- -- 71 12 98 % -- -- 03/12/18 1345 (!) 152/93 -- -- 67 15 98 % -- -- 03/12/18 1330 (!) 166/102 -- -- 80 12 97 % -- -- 03/12/18 1323 (!) 177/107 -- -- 76 18 98 % -- -- 03/12/18 1304 (!) 181/97 -- -- 69 18 99 % -- -- 03/12/18 1215 188/90 36.7 ??C (98.1 ??F) Oral 69 13 99 % -- -- 03/12/18 1214 -- -- -- -- -- -- 175.3 cm (5' 9) 90.7 kg (200 lb) Physical Exam Constitutional: She is oriented to person, place, and time. She appears well- developed and well-nourished. No distress. HENT: Head: Normocephalic and atraumatic. Eyes: Conjunctivae and EOM are normal. Pupils are equal, round, and reactive to light. Right eye exhibits no discharge. Left eye exhibits no discharge. No scleral icterus. Neck: Normal range of motion. Neck supple. No JVD present. No tracheal deviation present. Cardiovascular: Normal rate, regular rhythm, normal heart sounds and intact distal pulses. Pulmonary/Chest: Effort normal and breath sounds normal. No respiratory distress. She has no wheezes. Abdominal: Soft. Bowel sounds are normal. She exhibits no distension. There is no tenderness. Thereis no guarding. Musculoskeletal: Normal range of motion. She exhibits no edema or tenderness. Neurological: She is alert and oriented to person, place, and time. No cranial nerve deficit or sensory deficit. Skin: Skin is warm and dry. She is not diaphoretic. No erythema. No pallor. Psychiatric: She has a normal mood and affect. Her behavior is normal. Judgment and thought contentnormal. ED Course: Patient was evaluated and discussed with Dr. Anthony Acevedo, allergies, and PMH reviewed. Nursing notes and VS reviewed. Recent Results (from the past 24 hour(s)) Basic Metabolic Panel (non-fasting) Result Value Ref Range Glucose Lvl 81 65 - 199 mg/dL BUN 14 8 - 18 mg/dL Creatinine 0.86 0.70 - 1.20 mg/dL Sodium 144 135 - 145 mmol/L Potassium 4.0 3.5 - 5.0 mmol/L Chloride 105 98 - 107 mmol/L CO2 24 22 - 31 mmol/L Anion Gap 15 5 - 15 mmol/L Calcium 9.5 8.5 - 10.5 mg/dL eGFR 74 >=60 mL/min/1.73 m?? eGFR 86 >=60 mL/min/1.73 m?? Troponin Result Value Ref Range Troponin-T <0.01 0.00 - 0.00 ng/mL Blue Tube HOLD Result Value Ref Range Blue Hold Sample in lab. Hemogram Result Value Ref Range WBC 5.5 4.0 - 9.5 x10(3)/mcL RBC 4.97 4.00 - 5.21 x10(6)/mcL Hemoglobin 14.2 11.7 - 15.5 gm/dL Hematocrit 41.6 35.7 - 45.8 % MCV 83.7 82.6 - 94.4 fL MCH 28.6 27.1 - 32.0 pg MCHC 34.1 31.7 - 35.0 gm/dL Platelets 285 145 - 357 x10(3)/mcL RDWSD 41.0 37.0 - 46.0 fL RDWCV 13.3 11.5 - 14.1 % MPV 10.1 7.6 - 12.9 fL nRBC % Auto 0.0 % nRBC Abs Auto 0.000 0.000 - 0.000 x10(3)/mcL Differential, Automated Result Value Ref Range Neutrophils % 62.7 % Neutr Abs (ANC) 3.42 1.70 - 6.10 x10(3)/mcL Lymphocytes % 29.1 % Lymphocytes Abs 1.6 0.9 - 3.2 x10(3)/mcL Monocytes % 6.4 % Monocyte Abs 0.4 0.3 - 0.9 x10(3)/mcL Eosinophils % 1.1 % Eosinophils Abs 0.1 0.0 - 0.4 x10(3)/mcL Basophils % 0.5 % Basophils Abs 0.0 0.0 - 0.1 x10(3)/mcL Immature Gran % 0.20 % Annabelle Gran Abs 0.01 0.00 - 0.04 x10(3)/mcL Gold Tube HOLD Result Value Ref Range Gold Hold Sample in lab. D-Dimer, Quantitative Result Value Ref Range D-Dimer, Quant 447 0 - 500 FEU ng/ml Meds and fluid administered: Medications aspirin chewable tablet 324 mg (324 mg Oral Not Given 03/12/18 1221) nitroGLYcerin (NITROSTAT) SL tablet 0.4 mg (0.4 mg Sublingual Given 03/12/18 1322) Relevant imaging findings: XR Chest PA & Lateral (Generic) Final Result No acute cardiopulmonary pathology identified. Thank you for letting us participate in the care of this patient. For questions regarding this report, please contact the number below. : Normal sinus rhythm, T wave abnormality (known by patient for approximately 2 years) ED Course as of Mar 12 1521 Tue Mar 12, 2018 1307 XR Chest PA & Lateral (Generic) Assessment and Plan: MEDICAL DECISION MAKIN y.o. female with chest pain brought her by EMS. Patient reports that her pain was down to a 2/10 at the time of our meeting. Gave SL nitroglycerin which resolved her pain.Her history is most concerning for ACS. Her first troponin was negative, and her EKG was only significant for T wave abnormalities which has been known to the patient for years. CXR was normal. Considering that her history is concerning for ACS, we will trend troponins and plan for stress test in the morning. Unlikely to be pneumothorax considering normal CXR and history. PE is also unlikely: herWell's score of 0 and her presentation is more likely for ACS. Her BP has been high since arrival, which is concerning for aortic dissection, but considering her normal D-Dimer and normal CXR, this is less likely. Esophageal rupture also unlikely given lack of trauma and her presentation. Patient transferred to CDU for overnight labs and to await stress test in the morning. Reviewed indications for which to seek emergent medical care. All questions were answered, and the patient expressed understanding of the plan. ASSESSMENT: Luis Still is a 57 yo female who presents with non-exertional chest pain concerning for ACS. Patient will undergo serial troponins and stress test in the morning. PLAN: - dispo: Admit to CDU - follow-up: PCP in 1-2 days after discharge. Possible cardiology follow up depending on results. - prescriptions: none Kristian Roberts DO PGY-1 03/12/2018 Kristian Roberts, Resident 03/12/18 1615 Associated attestation - Francesco Cruz MD - 03/15/2018 12:38 PM EST I have seen the patient and reviewed the resident's documentation and I agree with the details as written.?The assessment and plan were formulated in discussion with me and I agree with them as documented. I also performed my own history and physical examination. Medical decision making in this note is my own. ?? Pleasant 57-year-old presents with chest pressure. Somewhat better after aspirin in the ambulance and after nitroglycerin here. ?? Initial ED workup reassuring. CDU chest pain protocol. * Jodie Stephenson RN - 03/12/2018 12:23 PM EST Patient to xray. documented in this encounter Miscellaneous Notes * Initial Assessments - Yanet Call RN - 03/13/2018 1:00 PM EST Office of Care Management/Initial Assessment CDU/SDP/Emergency Department Import Customs Clearing Agent ANTIONE Call RN, BSN, ACM Pager # [phone] Patient: Luis Still : 1960 (57 y.o.) Home: [facility] [id number] LOS: 0 days Problem List Items Addressed This Visit Chest pain - Primary Relevant Orders Echocardiogram Stress (Treadmill) (Completed) Record reviewed and patient discussed with: CDU team, pt interview. No. Discussed with patient importance and process for doing Advance Directives. Provided copy(ies) of [place] [employer] [facility] Advance Directives Taking Steps booklet with forms. Reviewed stress management techniques in general. No discharge needs identified at this time. Import Customs Clearing Agent remains available as needed for coordination of care and discharge planning. Past Medical History: Diagnosis Date ??? Hypothyroidism ??? Tendinitis Patient Active Problem List Diagnosis Code ??? Chest pain R07.9 Social History Social History Narrative ??? Not on file Extended Emergency Contact Information Primary Emergency Contact: Raymundo Still Address: [facility] [address] [place] [address] [place] Relation: Spouse Plan: Care Management will continue to monitor progress, follow for continuity of care, and assist with discharge planning. ?? PCP: Rell Brday MD, No future appointments. * Plan of Care - Christine Chauhan RN - 03/12/2018 6:21 PM EST Problem: Patient Care Overview Goal: Plan of Care Review 03/12/18 1810 Coping/Psychosocial Plan Of Care Reviewed With patient;spouse Plan of Care Review Progress improving OUTCOME EVALUATION NOTE: OUTCOME SUMMARY: Patient has been chest pain free for several hours. We will continue to monitor. PLAN MOVING FORWARD: Repeat Troponin and EKG at 1830. Exercise stress test in the morning INDIVIDUALIZED FALL PREVENTION INTERVENTIONS: Patient-specific fall risk factors per assessment: [current deficits]: N/A Assistance [level of assistance required for transfers and ambulation]: Independent,SBA Supervision [direct monitoring required during toileting and ADLs]: Independent Surveillance [continuous indirect monitoring]: Cardiac monitoring, Hourly rounding, bed in low position, brakes set, upper side rails up, call beasley within reach. Instructed to call for assistance prior to getting OOB Patient-specific fall prevention interventions for sensory deficits provided, if applicable: N/A CPG GOAL OUTCOME EVALUATION: Patient to be discharged tomorrow if stress test is negative Goal: Fall Prevention-Safe Patient Handling Outcome: Ongoing (Interventions Implemented as Appropriate) 03/12/18 1600 03/12/18169903/12/181809 Activity Activity Type -- -- ambulated to bathroom Activity Assistance Provided -- -- independent;assistance, stand-by Robbins Fall Risk History of Falling 0 -- -- Secondary Diagnosis 15 -- -- Ambulatory Aids 0 -- -- Intravenous Therapy/Heparin/Saline Lock 20 -- -- Gait/Transferring 0 -- -- Mental Status 0 -- -- Score 35 -- -- OTHER Robbins Fall Risk Med -- -- Restraint Interventions Safety Promotion/Fall Prevention -- nonskid shoes/slippers when out of bed -- Positioning Body Position independent -- -- Goal: Infection Control Outcome: Ongoing (Interventions Implemented as Appropriate) 03/12/18169903/12/181809 Coping Strategies Supportive Measures -- active listening utilized;self-care encouraged;verbalization of feelings encouraged Safety Interventions Isolation Precautions standard precautions maintained -- Goal: Discharge Needs Assessment Outcome: Ongoing (Interventions Implemented as Appropriate) 03/12/181809 Discharge Needs Assessment Concerns To Be Addressed no discharge needs identified Readmission Within The Last 30 Days no previous admission in last 30 days Problem: Cardiac: ACS (Acute Coronary Syndrome) (Adult) Goal: Signs and Symptoms of Listed Potential Problems Will be Absent, Minimized or Managed (Cardiac: ACS) Signs and symptoms of listed potential problems will be absent, minimized or managed by discharge/transition of care (reference Cardiac: ACS (Acute Coronary Syndrome) (Adult) CPG). Outcome: Ongoing (Interventions Implemented as Appropriate) 03/12/181809 Cardiac: ACS (Acute Coronary Syndrome) Problems Assessed (Acute Coronary Syndrome (ACS)) all Problems Present (Acute Coronary Syndrome (ACS)) none documented in this encounter Plan of Treatment Not on file documented as of this encounter Procedures Procedure Name Priority Date/Time Associated Diagnosis Comments STRESS ECHO W CONTRAST W LMTD SPEC DOPP COLOR DOPP STAT 03/13/2018 11:00 AM EST Chest pain, unspecified type TROPONIN STAT 03/12/2018 6:35 PM EST EKG 12-LEAD Routine 03/12/2018 6:23 PM EST EKG 12-LEAD STAT 03/12/2018 2:52 PM EST XR CHEST PA AND LATERAL STAT 03/12/2018 12:32 PM EST EKG 12-LEAD STAT 03/12/2018 12:31 PM EST HEMOGRAM STAT 03/12/2018 12:21 PM EST DIFFERENTIAL, AUTOMATED STAT 03/12/2018 12:21 PM EST D-DIMER, QUANTITATIVE STAT 03/12/2018 12:21 PM EST GOLD TUBE HOLD STAT 03/12/2018 12:21 PM EST BLUE TUBE HOLD STAT 03/12/2018 12:21 PM EST CBC (WITH DIFF) STAT 03/12/2018 12:21 PM EST TROPONIN STAT 03/12/2018 12:21 PM EST BASIC METABOLIC PANEL (NON-FASTING) STAT 03/12/2018 12:21 PM EST documented in this encounter Results * STRESS ECHO W CONTRAST W LMTD SPEC DOPP COLOR DOPP (03/13/2018 11:00 AM EST) EF 65 HEARTLAB SYSTEM Anatomical Region Laterality Modality Other 03/13/2018 Narrative 03/13/2018 11:43 AM EST Procedure: ?Stress Echocardiogram Patient: ?CHAR Alberto ?(Age): 1960(57y) Med Rec#: ? [id number] ?Sex: ?F ? Site Loc: ? [facility] ?Ht / Wt: ??175(cm)/91(kg) Pt. Loc: ?Echo Lab ?BSA: ?2.07 Study Date: ?? 03/13/2018 ?Pt. Type: Tape: ? Referring: VICTORINO MARRUFO R Reading: Dmitry Call ([id number]) Feltmaker: Maria G Vieyra Concrete Fence Builder: Marissa Jacques Diagnosis: *Chest pain, unspecified (R07.9) Stage ? BP ?HR ? Rest ?164/98 ?77 ? Peak ?168/88 ?139 ? Recovery ?156/96 ?83 ? SUMMARY: 1. Stress: ??Negative exercise stress echocardiogram for myocardial ischemia. ??At peak stress the left ventricle augments normally. ??No regional wall motion abnormalities were noted. ??There was no chest pain. EKG was non-diagnostic. ??The patient achieved a maximum heart rate of 139 which is 86% of the maximum predicted heart rate (162 beats/min). The target heart rate was achieved. ??The patient achieved a maximum heart rate of 139 which is 86% of the maximum predicted heart rate (162 beats/min). The target heart rate was achieved. 2. Rest: ??The left ventricle is probably normal in size. ??There is normal global left ventricular systolic function. ??Ejection fraction is estimated to be 65%. ??There are no left ventricular segmental wall motion abnormalities. ??Right ventricular chamber size, wall thickness, and systolic function are within normal limits. Findings Rest: Left Ventricle: ? The left ventricle is probably normal in size. ?There is no evidence of LVOT obstruction. ?There is normal global left ventricular systolic function. ??Ejection fraction is estimated to be 65%. ?There are no left ventricular segmental wall motion abnormalities. Right Ventricle: ? Right ventricular chamber size, wall thickness, and systolic function are within normal limits. ?Pulmonary artery hypertension could not be assessed due to inadequate tricuspid regurgitation jet. Aortic Valve: ? The aortic valve is trileaflet. The leaflets are thin with normal excursion. There is no aortic stenosis or regurgitation present. Mitral Valve: ? The mitral valve appears normal in structure and function. ?There is trace mitral regurgitation present. Tricuspid Valve: ? The tricuspid valve appears normal in structure and function. ?There is no evidence of tricuspid valve regurgitation present. Pericardium: ? The pericardium appears normal and there is no evidence of a pericardial effusion. Aorta: ? The ascending aorta is normal in size. Stress: ? EKG: normal sinus rhythm. ?EKG: nondiagnostic ST-T changes. ?The patient's oxygen saturation was 100%. ?The patient is on no cardiac or blood pressure medications. Misc: ? Other echo and stress findings as noted in report. ?Definity contrast (one 1.5 ml vial)was used to enhance endocardial definition. Excess contrast was discarded. ?Stress echo, limited spectral Doppler, color Doppler and ECG interpretation performed. Findings Peak: Predicted Values:The patient achieved a maximum heart rate of 139 which is 86% of the maximum predicted heart rate (162 beats/min). ??The target heart rate was achieved. Left Ventricle: ? Global left ventricular systolic function appears hyperdynamic. ?There are no left ventricular segmental wall motion abnormalities. Stress: ? Patient followed a Alan protocol. ?The patient exercised into stage 2. ?The total exercise duration was:5:08 min/sec. ?The study was terminated because of dyspnea. ?The patient did not express feelings of chest discomfort. ?The patient experienced shortness of breath. ?The blood pressure response was blunted. ?Exercise capacity was average. ?The patient achieved a level of 7 METS. ?There were no arrhythmias. ?There was ST segment depression noted.hypertensive to start with blunted response to exercise ?The electrocardiographic response was indeterminate for ischemia.Due to baseline ST-T abnormalities ?This was a negative echocardiographic stress test. ?EKG: sinus tachycardia. ?The patient's oxygen saturation was 96% Findings Recovery: Stress: ? EKG: normal sinus rhythm. Chambers 2D ?Value ?Units (Range) ? Ascending Ao ?3.3 ?cm (2 - 3.5) ? Diastolic/Systolic Function ?Value ?Units (Range) ? MV E-wave Vmax ?0.6 ?m/sec ? MV deceleration [id number] ?msec ? MV A-wave Vmax ?0.8 ?m/sec ? MV E:A ratio ?0.8 ?ratio ? LV septal e' Vmax ?? 0.1 ?m/sec ? LV lateral e' Vmax ??0.1 ?m/sec ? LV E:e' septal ratio11.6 ? ratio ? LV E:e' lateral rati9 ?ratio ? Wall Motion: Segment Name ?Rest ? Peak ? Base-Anteroseptal ?? Normal ? Normal ? Base-Anterior ? Normal ? Normal ? Base-Anterolateral ??Normal ? Normal ? Base-Posterolateral Normal ? Normal ? Base-Inferior ? Normal ? Normal ? Base-Inferoseptal ?? Normal ? Normal ? Mid-Anteroseptal ?Normal ? Normal ? Mid-Anterior ?Normal ? Normal ? Mid-Anterolateral ?? Normal ? Normal ? Mid-Posterolateral ??Normal ? Normal ? Mid-Inferior ?Normal ? Normal ? Mid-Inferoseptal ?Normal ? Normal ? [place]-Septal ? Normal ? Normal ? [place]-Anterior ? Normal ? Normal ? [place]-Lateral ?Normal ? Normal ? [place]-Inferior ? Normal ? Normal ? [place]-Tip ?Normal ? Normal ? This report has been electronically signed by: Dmitry Call M.D. ? 03/13/2018 11:43:03 Images reviewed and interpretation verified [facility] Cardiac Ultrasound Laboratory Procedure Note Dmitry Call MD - 03/13/2018 Procedure: Stress Echocardiogram Patient: CHAR REYES(Age): 1960(57y) Med Rec#: [id number] Sex: F Site Loc: [facility] Ht / Wt: 175(cm)/91(kg) Pt. Loc: Echo Lab BSA: 2.07 Study Date: 03/13/2018 Pt. Type: Tape: Referring: VICTORINO MARRUFO R Reading: Dmitry Call ([id number]) Feltmaker: Maria G Vieyra Concrete Fence Builder: Marissa Jacques Diagnosis: *Chest pain, unspecified (R07.9) Stage BP HR Rest 164/98 77 Peak 168/88 139 Recovery 156/96 83 SUMMARY: 1. Stress: Negative exercise stress echocardiogram for myocardial ischemia. At peak stress the left ventricle augments normally. No regional wall motion abnormalities were noted. There was no chest pain. EKG was non-diagnostic. The patient achieved a maximum heart rate of 139 which is 86% of the maximum predicted heart rate (162 beats/min). The target heart rate was achieved. The patient achieved a maximum heart rate of 139 which is 86% of the maximum predicted heart rate (162 beats/min). The target heart rate was achieved. 2. Rest: The left ventricle is probably normal in size. There is normal global left ventricular systolic function. Ejection fraction is estimated to be 65%. There are no left ventricular segmental wall motion abnormalities. Right ventricular chamber size, wall thickness, and systolic function are within normal limits. Findings Rest: Left Ventricle: The left ventricle is probably normal in size. There is no evidence of LVOT obstruction. There is normal global left ventricular systolic function. Ejection fraction is estimated to be 65%. There are no left ventricular segmental wall motion abnormalities. Right Ventricle: Right ventricular chamber size, wall thickness, and systolic function are within normal limits. Pulmonary artery hypertension could not be assessed due to inadequate tricuspid regurgitation jet. Aortic Valve: The aortic valve is trileaflet. The leaflets are thin with normal excursion. There is no aortic stenosis or regurgitation present. Mitral Valve: The mitral valve appears normal in structure and function. There is trace mitral regurgitation present. Tricuspid Valve: The tricuspid valve appears normal in structure and function. There is no evidence of tricuspid valve regurgitation present. Pericardium: The pericardium appears normal and there is no evidence of a pericardial effusion. Aorta: The ascending aorta is normal in size. Stress: EKG: normal sinus rhythm. EKG: nondiagnostic ST-T changes. The patient's oxygen saturation was 100%. The patient is on no cardiac or blood pressure medications. Misc: Other echo and stress findings as noted in report. Definity contrast (one 1.5 ml vial)was used to enhance endocardial definition. Excess contrast was discarded. Stress echo, limited spectral Doppler, color Doppler and ECG interpretation performed. Findings Peak: Predicted Values:The patient achieved a maximum heart rate of 139 which is 86% of the maximum predicted heart rate (162 beats/min). The target heart rate was achieved. Left Ventricle: Global left ventricular systolic function appears hyperdynamic. There are no left ventricular segmental wall motion abnormalities. Stress: Patient followed a Alan protocol. The patient exercised into stage 2. The total exercise duration was:5:08 min/sec. The study was terminated because of dyspnea. The patient did not express feelings of chest discomfort. The patient experienced shortness of breath. The blood pressure response was blunted. Exercise capacity was average. The patient achieved a level of 7 METS. There were no arrhythmias. There was ST segment depression noted.hypertensive to start with blunted response to exercise The electrocardiographic response was indeterminate for ischemia.Due to baseline ST-T abnormalities This was a negative echocardiographic stress test. EKG: sinus tachycardia. The patient's oxygen saturation was 96% Findings Recovery: Stress: EKG: normal sinus rhythm. Chambers 2D Value Units (Range) Ascending Ao 3.3 cm (2 - 3.5) Diastolic/Systolic Function Value Units (Range) MV E-wave Vmax 0.6 m/sec MV deceleration [id number] msec MV A-wave Vmax 0.8 m/sec MV E:A ratio 0.8 ratio LV septal e' Vmax 0.1 m/sec LV lateral e' Vmax 0.1 m/sec LV E:e' septal ratio11.6 ratio LV E:e' lateral rati9 ratio Wall Motion: Segment Name Rest Peak Base-Anteroseptal Normal Normal Base-Anterior Normal Normal Base-Anterolateral Normal Normal Base-Posterolateral Normal Normal Base-Inferior Normal Normal Base-Inferoseptal Normal Normal Mid-Anteroseptal Normal Normal Mid-Anterior Normal Normal Mid-Anterolateral Normal Normal Mid-Posterolateral Normal Normal Mid-Inferior Normal Normal Mid-Inferoseptal Normal Normal [place]-Septal Normal Normal [place]-Anterior Normal Normal [place]-Lateral Normal Normal [place]-Inferior Normal Normal [place]-Tip Normal Normal This report has been electronically signed by: Dmitry Call M.D. 03/13/2018 11:43:03 Images reviewed and interpretation verified [facility]ound [facility] Victorino Marrufo APRN ECHO ORDERABLES * Troponin (03/12/2018 6:35 PM EST) Troponin-T <0.01 0.00 - 0.00 ng/mL [facility] Comment: The 99th percentile for Troponin T is less than 0.01 ng/mL, any detectable cTnT concentration using this assay should be considered elevated. According to the third universal definition of myocardial infarction the following criteria with a clinical presentation consistent with acute myocardial ischemia meets the diagnosis for a myocardial infarction ([place]). Detection of a rise and/or fall of cTnT, with at least one value greater than the 99th percentile (> or = 0.01) and with at least one of the following ?? Symptoms of ischemia ?? New or presumed new significant QS-ewvyida-J wave (ST-T) changes or new left bundle branch block (LBBB) ?? Development of pathologic Q waves in the ECG ?? Imaging evidence of new loss of viable myocardium or new regional wall motion abnormality ?? Identification of an intracoronary thrombus by angiography or autopsy Samples for cTnT testing should be obtained serially upon first assessment and again 3 to 6 hours later. If the clinical suspicion is high and previous samples have been negative an additional sample may be indicated. Reference: Third [place] Definition of Myocardial Infarction. Journal of the [place] [employer] 2012;60:1581-98 Blood specimen (specimen) 03/12/2018 6:35 PM EST 03/12/2018 6:53 PM EST Narrative Resulting Agency Comment Spec In Lab Victorino Marrufo APRN CHEMISTRY ORDERABLES [facility] [place] [address] * EKG 12 Lead (03/12/2018 6:23 PM EST) Ventricular rate 76 BPM MUSE SYSTEM Atrial Rate 76 BPM MUSE SYSTEM P-R Interval 140 ms MUSE SYSTEM QRS Duration 86 ms MUSE SYSTEM Q-T Interval 392 ms MUSE SYSTEM QTC Calculated (Bezet) 441 ms MUSE SYSTEM Calculated P [place] 50 degrees MUSE SYSTEM Calculated R [place] 47 degrees MUSE SYSTEM Calculated T [place] -54 degrees MUSE SYSTEM INTERPRETATION Normal sinus rhythm ST & T wave abnormality, consider inferior ischemia ST & T wave abnormality, consider anterolateral ischemia Abnormal ECG When compared with ECG of 12-MAR-2018 14:52, (unconfirmed) No significant change was found Confirmed by MD ESPINO SALVATORE ([id number]) on 03/13/2018 3:24:01 PM MUSE SYSTEM 03/12/2018 6:23 PM EST 03/13/2018 3:24 PM EST Victorino Marrufo APRN ECG ORDERABLES Performing Organization Address [facility] Phone Number MUSE SYSTEM * EKG 12 Lead (03/12/2018 2:52 PM EST) Ventricular rate 72 BPM MUSE SYSTEM Atrial Rate 72 BPM MUSE SYSTEM P-R Interval 146 ms MUSE SYSTEM QRS Duration 84 ms MUSE SYSTEM Q-T Interval 396 ms MUSE SYSTEM QTC Calculated (Bezet) 433 ms MUSE SYSTEM Calculated P [place] 40 degrees MUSE SYSTEM Calculated R [place] 26 degrees MUSE SYSTEM Calculated T [place] -9 degrees MUSE SYSTEM INTERPRETATION Normal sinus rhythm T wave abnormality, consider inferolateral ischemia Abnormal ECG When compared with ECG of 12-MAR-2018 12:31, No significant change was found Confirmed by MD ESPINO SALVATORE ([id number]) on 03/13/2018 3:23:16 PM MUSE SYSTEM 03/12/2018 2:52 PM EST 03/13/2018 3:23 PM EST Francesco Cruz MD ECG ORDERABLES Performing Organization Address [facility] Phone Number MUSE SYSTEM * XR Chest PA & Lateral (Generic) (03/12/2018 12:32 PM EST) Anatomical Region Laterality Modality Chest N/A Digital Radiogra phy Impressions 03/12/2018 1:00 PM EST No acute cardiopulmonary pathology identified. Thank you for letting us participate in the care of this patient. For questions regarding this report, please contact the number below. ? Narrative 03/12/2018 1:00 PM EST EXAMINATION: XR CHEST PA AND LATERAL (GENERIC) CLINICAL HISTORY: chest pain TECHNIQUE: PA and lateral views of the chest. COMPARISON: None. FINDINGS: Minimal linear atelectasis versus scarring at the left lung base. Otherwise, lungs appear symmetrically expanded and clear. The cardiomediastinal silhouette, iris, pulmonary vessels, and pleura are within normal limits. Cartilaginous-type calcification projecting over the proximal left humerus appears compatible with enchondroma. Procedure Note Cindy Heaton MD - 03/12/2018 EXAMINATION: XR CHEST PA AND LATERAL (GENERIC) CLINICAL HISTORY: chest pain TECHNIQUE: PA and lateral views of the chest. COMPARISON: None. FINDINGS: Minimal linear atelectasis versus scarring at the left lungbase. Otherwise, lungs appear symmetrically expanded and clear. Thecardiomediastinal silhouette, iris, pulmonary vessels, and pleura are within normallimits. Cartilaginous-type calcification projecting over the proximal lefthumerus appears compatible with enchondroma. IMPRESSION No acute cardiopulmonary pathology identified. Thank you for letting us participate in the care of this patient. Forquestions regarding this report, please contact the number below. Francesco Cruz MD IMG DX ORDERABLES * EKG 12 Lead (03/12/2018 12:31 PM EST) Ventricular rate 69 BPM MUSE SYSTEM Atrial Rate 69 BPM MUSE SYSTEM P-R Interval 138 ms MUSE SYSTEM QRS Duration 86 ms MUSE SYSTEM Q-T Interval 404 ms MUSE SYSTEM QTC Calculated (Bezet) 432 ms MUSE SYSTEM Calculated P [place] 45 degrees MUSE SYSTEM Calculated R [place] 27 degrees MUSE SYSTEM Calculated T [place] -17 degrees MUSE SYSTEM INTERPRETATION Normal sinus rhythm Nonspecific T wave abnormality Abnormal ECG No previous ECGs available Confirmed by MD GINO, RONNIE ([id number]) on 03/12/2018 2:57:57 PM MUSE SYSTEM 03/12/2018 12:3 1 PM EST 03/12/2018 2:57 PM EST Francesco Cruz MD ECG ORDERABLES MUSE SYSTEM * D-Dimer, Quantitative (03/12/2018 12:21 PM EST) D-Dimer, Quant 447 0 - 500 FEU ng/ml [facility] Comment: The D-Dimer assay is used to aid in the diagnosis of deep vein thrombosis and pulmonary embolism. A normal D-Dimer result (less than 500 FEU ng/ml) has a negative predictive value of approximately 95% for the exclusion of acute PE and DVT when there is low to moderate pretest probability. To use age adjusted cutoff: Age x 10 ng/ml. Blood specimen (specimen) No Charge / Unknown 03/12/2018 12:21 PM EST 03/12/2018 12:34 PM EST Narrative Resulting Agency Comment Spec In Lab Francesco Cruz MD HEMATOLOGY ORDERABLE S Performing Organization Address City/[facility] Co de Phone Number [facility] [place] [address] * Gold Tube HOLD (03/12/2018 12:21 PM EST) Gold Hold Sample in lab. [facility] Blood specimen (specimen) Venous Draw / Unknown 03/12/2018 12:21 PM EST 03/12/2018 12:34 PM EST Francesco Cruz MD CHEMISTRY ORDERABLES Performing Organization Address City/[facility]/ZIP Co de Phone Number [facility] [place] [address] * Differential, Automated (03/12/2018 12:21 PM EST) Neutrophils % 62.7 % [facility] Neutr Abs (ANC) 3.42 1.70 - 6.10 x10(3)/[facility] Lymphocytes % 29.1 % [facility] Lymphocytes Abs 1.6 0.9 - 3.2 x10(3)/[facility] Monocytes % 6.4 % [place] Monocyte Abs 0.4 0.3 - 0.9 x10(3)/[facility] Eosinophils % 1.1 % [facility] Eosinophils Abs 0.1 0.0 - 0.4 x10(3)/[facility] Basophils % 0.5 % [place] Basophils Abs 0.0 0.0 - 0.1 x10(3)/[facility] Immature Gran % 0.20 % [facility] Comment: Immature granulocytes(IG's)percentage and absolute count will include metamyelocytes, myelocytes, and promyelocytes. Blood smears from CBCs yielding IG's will be scanned manually for concordance. If this scan disagrees with the automated IG or if promyelocytes are noted, a manual differential will be performed. Annabelle Gran Abs 0.01 0.00 - 0.04 x10(3)/[facility] Blood specimen (specimen) 03/12/2018 12:21 PM EST 03/12/2018 12:34 PM EST Narrative Resulting Agency Comment Spec In Lab Noel Howard MD HEMATOLOGY ORDERABLE S [facility] [place] [address] * Hemogram (03/12/2018 12:21 PM EST) WBC 5.5 4.0 - 9.5 x10(3)/[facility] RBC 4.97 4.00 - 5.21 x10(6)/[facility] Hemoglobin 14.2 11.7 - 15.5 gm/dL [facility] Hematocrit 41.6 35.7 - 45.8 % [facility] MCV 83.7 82.6 - 94.4 [facility] MCH 28.6 27.1 - 32.0 pg [facility] MCHC 34.1 31.7 - 35.0 gm/dL [facility] Platelets 285 145 - 357 x10(3)/[facility] RDWSD 41.0 37.0 - 46.0 fL [facility] RDWCV 13.3 11.5 - 14.1 % [facility] MPV 10.1 7.6 - 12.9 [facility] nRBC % Auto 0.0 % [facility] nRBC Abs Auto 0.000 0.000 - 0.000 x10(3)/[facility] Blood specimen (specimen) 03/12/2018 12:21 PM EST 03/12/2018 12:34 PM EST Narrative Resulting Agency Comment Spec In Lab Noel Howard MD HEMATOLOGY ORDERABLE S Performing Organization Address City/[facility]/ZIP Co de Phone Number [facility] [place] [address] * Blue Tube HOLD (03/12/2018 12:21 PM EST) Blue Hold Sample in lab. [facility] Blood specimen (specimen) 03/12/2018 12:21 PM EST 03/12/2018 12:34 PM EST Francesco Cruz MD HEMATOLOGY ORDERABLE S [facility] [place] [address] * Troponin (03/12/2018 12:21 PM EST) Troponin-T <0.01 0.00 - 0.00 ng/mL [facility] Comment: The 99th percentile for Troponin T is less than 0.01 ng/mL, any detectable cTnT concentration using this assay should be considered elevated. According to the third universal definition of myocardial infarction the following criteria with a clinical presentation consistent with acute myocardial ischemia meets the diagnosis for a myocardial infarction ([place]). Detection of a rise and/or fall of cTnT, with at least one value greater than the 99th percentile (> or = 0.01) and with at least one of the following ?? Symptoms of ischemia ?? New or presumed new significant WX-ihwxory-O wave (ST-T) changes or new left bundle branch block (LBBB) ?? Development of pathologic Q waves in the ECG ?? Imaging evidence of new loss of viable myocardium or new regional wall motion abnormality ?? Identification of an intracoronary thrombus by angiography or autopsy Samples for cTnT testing should be obtained serially upon first assessment and again 3 to 6 hours later. If the clinical suspicion is high and previous samples have been negative an additional sample may be indicated. Reference: Third [place] Definition of Myocardial Infarction. Journal of the [place] [employer] 2012;60:1581-98 Blood specimen (specimen) 03/12/2018 12:21 PM EST 03/12/2018 12:34 PM EST Narrative Resulting Agency Comment Spec In Lab Francesco Cruz MD CHEMISTRY ORDERABLES [facility] [place] [address] * Basic Metabolic Panel (non-fasting) (03/12/2018 12:21 PM EST) [facility] Glucose Lvl 81 65 - 199 mg/dL [facility] Comment:Diabetes: >=200 mg/d L plus symptoms BUN 14 8 - 18 mg/dL [facility] Creatinine 0.86 0.70 - 1.20 mg/dL [facility] Sodium 144 135 - 145 mmol/L [facility] Potassium 4.0 3.5 - 5.0 mmol/L [facility] Comment: Please note: ??Patients with WBC >100,000 may have falsely elevated Potassium levels. ??For accurate Potassium quantification in these patients send serum separator tube (gold top) for subsequent determinations. ??Contact the Clinical Chemistry Laboratory if there are any questions. Chloride 105 98 - 107 mmol/L [facility] CO2 24 22 - 31 mmol/L [facility] Anion Gap 15 5 - 15 mmol/L [facility] Calcium 9.5 8.5 - 10.5 mg/dL [facility] Estimated GFR 74 >=60 mL/min/1. 73 m?? [facility] Comment: The eGFR was calculated using the CKD-EPI equation. As with all creatinine based estimates of kidney function, eGFR values calculated with the CKD-EPI equation are not accurate in patients with acute kidney failure, extremes of body mass or the acutely ill. [email or web address] eGFR 86 >=60 mL/min/1. 73 m?? [facility] Comment: The eGFR was calculated using the CKD-EPI equation. As with all creatinine based estimates of kidney function, eGFR values calculated with the CKD-EPI equation are not accurate in patients with acute kidney failure, extremes of body mass or the acutely ill. [email or web address] Blood specimen (specimen) 03/12/2018 12:21 PM EST 03/12/2018 12:34 PM EST Narrative Resulting Agency Comment Spec In Lab Francesco Cruz MD CHEMISTRY ORDERABLES [facility] [place] [place] [address] documented in this encounter Visit Diagnoses Diagnosis Chest pain, unspecified type- Primary Chest pain Chest pain, unspecified documented in this encounter Admitting Diagnoses Diagnosis Chest pain Chest pain, unspecified documented in this encounter Administered Medications Inactive Administered Medications - up to 3 most recent administrations Medication Order MAR Action Action Date Dose Rate Site aspirin tablet 325 mg 325 mg, Oral, ONCE, 1 dose, On Sun03/13/18 at 0000, STAT Given 03/13/2018 11:15 AM EST 325 mg ibuprofen (ADVIL;MOTRIN) tablet 400 mg 400 mg, Oral, ONCE, 1 dose, On Sun03/12/18 at 1826, Administer orally with milk or food to minimize GI irritation , STAT Given 03/12/2018 6:33 PM EST 400 mg levothyroxine (SYNTHROID) tablet 150 mcg 150 mcg, Oral, EVERY MORNING, First dose on Sun03/13/18 at 0700, Until Discontinued, Routine Given 03/13/2018 8:14 AM EST 150 mcg nitroGLYcerin (NITROSTAT) SL tablet 0.4 mg 0.4 mg, Sublingual, EVERY 5 MIN PRN, 3 doses, Starting on Sun03/12/18 at 1312, Until Sun03/13/18 at 1505, Chest pain, SL nitroglycerin may be repeated every 5 minutes as needed up to 3 doses, STAT Given 03/12/2018 1:22 PM EST 0.4 mg perflutren lipid microspheres (DEFINITY) injection 0.8 mL 0.8 mL (rounded from 0.75 mL), Intravenous, ONCE PRN, 1 dose, Starting on Sun03/13/18 at 1102, Until Sun03/13/18 at 1030, Other, for enhancement of sub-optimal echo images, Echo Lab (Intra-Procedure), Routine Given 03/13/2018 10:30 AM EST 0.8 mLs documented in this encounter Active and Recently Administered Medications Times are shown in EST. Scheduled Medication Order 03/11/2018 03/12/2018 03/13/2018 aspirin chewable tablet 324 mg 324 mg, Oral, ONCE, 1 dose, On Sun03/12/18 at 1221, Unless allergic or given Prior To Admission (BUSINESS EDITOR). If partial dose administered BUSINESS EDITOR administer remaining MG for a total dose of 325 mg/day., STAT 1221 (Not Given - Provider: Jodie Stephenson RN - Reason: See comment - Comment: Was given via EMS) aspirin tablet 325 mg (COMPLETED) 325 mg, Oral, ONCE, 1 dose, On Sun03/13/18 at 0000, STAT 1115 (Given - Provid er: Christine Chauhan RN) ibuprofen (ADVIL;MOTRIN) tablet 400 mg (COMPLETED) 400 mg, Oral, ONCE, 1 dose, On 1/15/19 at 1826, Administer orally with milk or food to minimize GI irritation , STAT 1833 (Given - Provider: Christine Chauhan, ANTIONE) levothyroxine (SYNTHROID) tablet 150 mcg 150 mcg, Oral, EVERY MORNING, First dose on Sun03/13/18 at 0700, Until Discontinued, Routine 0814 (Given - Provid er: Christine Chauhan, ANTIONE) PRN Medication Order 03/11/2018 03/12/2018 03/13/2018 acetaminophen (TYLENOL) tablet 650 mg 650 mg, Oral, EVERY 4 HOURS PRN, Starting on Sun03/12/18 at 1613, Until Sun03/13/18 at 1505, Pain, Maximum dose of acetaminophen is 4000 mg from all sources in 24 hours., STAT nitroGLYcerin (NITROSTAT) SL tablet 0.4 mg 0.4 mg, Sublingual, EVERY 5 MIN PRN, 3 doses, Starting on Sun03/12/18 at 1312, Until Sun03/13/18 at 1505, Chest pain, SL nitroglycerin may be repeated every 5 minutes as needed up to 3 doses, STAT 1322 (Given - Provider: Jodie Stephenson RN) perflutren lipid microspheres (DEFINITY) injection 0.8 mL (COMPLETED) 0.8 mL (rounded from 0.75 mL), Intravenous, ONCE PRN, 1 dose, Starting on Sun03/13/18 at 1102, Until Sun03/13/18 at 1030, Other, for enhancement of sub-optimal echo images, Echo Lab (Intra-Procedure), Routine 1030 (Given - Provid er: Maria G Vieyra) documented in this encounter 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
--- OUTSIDE RECORDS SUMMARY | 2023-09-25 02:45 | XMS_ITS | Encounter Summary ---
Author Organization [facility] [place] [address] Care Team Providers Care Big Data Developer Name Role Phone Rell Brady MD Primary Care Provider [phone] Encounter Details Date Type Department Care Team (Late st Contact Info) Description 09/12/2017 Orders [place] [address] Rell Burrell MD [facility] [place] [address] Hypothyroidism, unspecified type Social History Tobacco Use Types Packs/Day Years Used Date Smoking Tobacco: Never Smokeless Tobacco: Never Sex and Gender Information Value Date Recorded Sex Assigned at Not on file Gender Identity Not on file Sexual Orientation Not on file documented as of this encounter Plan of Treatment Not on file documented as of this encounter Visit Diagnoses Diagnosis Hypothyroidism, unspecified type documented in this encounter Care Teams Big Data Developer Relationship Specialty Start Date End Date Rell Brady MD [address] [place] [address] PCP - General 02/15/12 documented as of this encounter
--- OUTSIDE RECORDS SUMMARY | 2023-09-25 02:45 | XMS_ITS | Encounter Summary ---
Author Organization [place] [place] [address] Care Team Providers Care Experimental Mechanic Outboard Motors Name Role Phone Rell Brady MD Primary Care Provider [phone] Reason for Referral * Consultation (Routine) - Closed Specialty Diagnoses / Procedures Referred By Dewayne pereira Referred To Contact General Surgery Diagnoses Nontoxic multinodular goiter Rell Burrell MD [facility] [place] [address] Yesi Velasquez MD [facility] [place] [address] Referral ID Status Reason Start Date Expiration Date V isits Requested Visits Authorized [id number] Closed Specialty Service Requested 08/03/2017 08/03/2018 1 1 Encounter Details Date Type Department Care Team (Late st Contact Info) Description 08/03/2017 Orders [place] [address] Rell Burrell MD [facility] [address] Nontoxic multinodular goiter Social History Tobacco Use Types Packs/Day Years Used Date Smoking Tobacco: Never Smokeless Tobacco: Never Sex and Gender Information Value Date Recorded Sex Assigned at Not on file Gender Identity Not on file Sexual Orientation Not on file documented as of this encounter Plan of Treatment Scheduled Referrals Name Type Priority Associated Diagnoses Orde r Schedule Referral to General Surgery Outpatient Referral Routine Nontoxic multinodular goiter Ordered: 08/03/2017 documented as of this encounter Visit Diagnoses Diagnosis Nontoxic multinodular goiter documented in this encounter Care Teams Experimental Mechanic Outboard Motors Relationship Specialty Start Date End Date Rell Brady MD [address] [place] [address] PCP - General 02/15/12 documented as of this encounter
--- OUTSIDE RECORDS SUMMARY | 2023-09-25 02:45 | XMS_ITS | Encounter Summary ---
Author Organization [facility] Address [facility] [place] [address] Care Team Providers Care Energy And Sustainability Manager Name Role Phone Rell Brady MD Primary Care Provider [phone] Encounter Details Date Type Department Care Team (Late st Contact Info) Description 10/09/2017 Telephone [place] [phone] Yesi Velasquez MD [facility] [place] [address] Social History Tobacco Use Types Packs/Day Years Used Date Smoking Tobacco: Never Smokeless Tobacco: Never Sex and Gender Information Value Date Recorded Sex Assigned at Not on file Gender Identity Not on file Sexual Orientation Not on file documented as of this encounter Miscellaneous Notes * Telephone Encounter - Yesi Velasquez MD - 10/09/2017 3:36 PM EDT I called Ms. Luis Still today to discuss the results of her pathology. Specifically, this demonstrated A - Right thyroid lobe and isthmus, excision: ??- Follicular adenoma (3.1 cm), predominantly microfollicular pattern. ??- Chronic lymphocytic (Mel) thyroiditis. B - Left lobe of thyroid, excision: ??- Chronic lymphocytic (Mel) thyroiditis with ? chronic/sclerosing change. She is doing well. Her voice sounds normal. She is not complaining of perioral numbness/tingling, numbness/tingling in the hands, or muscle spasms. She will taper off her calcium supplementation. I answered her questions, and we will discuss further at her regularly-scheduled postoperative follow up appointment. documented in this encounter Plan of Treatment Not on file documented as of this encounter Visit Diagnoses Not on filedocumented in this encounter Care Teams Energy And Sustainability Manager Relationship Specialty Start Date End Date Rell Brady MD [address] [place] [address] PCP - General 02/15/12 documented as of this encounter
--- OUTSIDE RECORDS SUMMARY | 2023-09-25 02:45 | XMS_ITS | Continuity of Care Document ---
Author Organization [facility] Address [address] [place] [address] Care Team Providers Care Porcelain Enamel Installer Name Role Phone Deysi Painter Primary Care Physician En[facility] Date(s): 07/10/23 - 07/10/23 [facility] [address] [place] [address] Discharge Disposition: Home Allergies, Adverse Reactions, Alerts [...] needed, # 2 tab, 0 Refill(s), Pharmacy: [id number], 175.3, cm, 07/10/23 10:47:00 EDT, Height, [...] information Care Team Personnel Name: Deysi Painter COLLATOR Position: No Access Member Role: Primary Care Physician Address: Address: [address] Care Team Related Persons Name: YAMIL PARDO Address: Home [address] [place], [place] [id number]
--- OUTSIDE RECORDS SUMMARY | 2023-09-25 02:45 | XMS_ITS | Encounter Summary ---
Author [facility] [place] [address] Care Team Providers Care Communications Controller Name Role Phone Rell Brady MD Primary Care Provider [phone] Encounter Details Date Type Department Care Team (Late st Contact Info) Description 02/14/2021 1:15 PM EST Public Health [place] [address] COVID-19 ruled out Social History Tobacco Use Types Packs/Day Years [...] Date/Time Associated Diagnosis Comments COVID-19 PCR Routine 02/14/2021 6:43 PM EST COVID-19 ruled out documented in this encounter Results * COVID-19 PCR (02/14/2021 6:43 PM EST) SARS-CoV-2 RNA Not Detected Not Detected [facility] Comment: This result should be [...] diagnosis of COVID-19 is performed using the [employer] m SARS-CoV-2 Assay as authorized by the FDA Emergency Use Authorization (EUA). This EUA assay is intended for In-vitro Diagnostic (IVD) use with respiratory specimens such as nasopharyngeal swabs collected from individuals during the acute phase of infection. This assay is performed based on the instructions for use provided by [employer] and additional guidance provided by CDC and FDA. Testing is performed in the Clinical Genomics and Advanced Technology Laboratory within the Department of Pathology and Laboratory Medicine at [facility], certified under the Clinical Laboratory Improvement Amendments [...] fact sheets at the following FDA website: https://www.fda.gov/medical-devices/ukfiliqmeas-zfustov-4011-wuryj-51-gvruvoryj- use-a kjftrghgawpgj-pftthuo-pxmxwbf/oibej-gbfchhgzcuh-nxdk SARS-Cov-2 RNA Source DROP WIRE ALIGNER Swab [facility] Nasopharyngeal Swab 02/15/20 6:43 PM EST 02/14/2021 6:43 PM EST Comment:Symptoms->Asymptomat ic Narrative Resulting Agency Comment Spec In Lab Rell Brady MD MICROBIOLOGY - GENER AL ORDERABLES [facility] [place] [address] documented in this encounter Visit Diagnoses Diagnosis COVID-19 ruled out documented in this encounter Care Teams Communications Controller Relationship Specialty Start Date End Date Rell Brady MD [address] [place] [address] PCP - General 02/15/12 documented as of this encounter
--- OUTSIDE RECORDS SUMMARY | 2023-09-25 02:45 | XMS_ITS | Encounter Summary ---
[place] [address] Care Team Providers Care Internet Marketing Consultant Name Role Phone Rell Brady MD Primary Care Provider [phone] Encounter Details Date Type Department Care Team (Late st Contact Info) Description 08/01/2017 Telephone [place] [phone] Bridgett Wilson LPN Social History Tobacco Use Types Packs/Day Years Used Date Smoking Tobacco: Never Smokeless Tobacco: Never Sex and Gender Information Value Date Recorded Sex Assigned at Not on file Gender Identity Not on file Sexual Orientation Not on file documented as of this encounter Miscellaneous Notes * Telephone Encounter - Bridgett Wilson LPN - 08/03/2017 10:19 AM EDT Letter mailed to patient * Telephone Encounter - Bridgett Wilson LPN - 08/01/2017 3:44 PM EDT R/c to patient Seen by Dr uBrrell on 07/09/17 and had U/S @ that time. Has now received a call and a letter to schedule an appointment is not sure why. Letter dated 07/22/17 was read to patient who was advised that copy of letter will also be mailed toher. Call transferred to special education secretary scheduled for 10/30/17. Forward to Dr Burrell to verify that appointment in Oct for thyroid FNA is okay. documented in this encounter Plan of Treatment Not on file documented as of this encounter Visit Diagnoses Not on filedocumented in this encounter Care Teams Internet Marketing Consultant Relationship Specialty Start Date End Date Rell Brady MD [address] [place] [address] PCP - General 02/15/12 documented as of this encounter
--- OUTSIDE RECORDS SUMMARY | 2023-09-25 02:45 | XMS_ITS | Encounter Summary ---
[place] [address] Care Team Providers Care Geophysical Observer Name Role Phone Rell Brady MD Primary Care Provider [phone] Reason for Visit * Reason Comments Cough Encounter Details Date Type Department Care Team (Late st Contact Info) Description 10/04/2017 Telephone [place] [phone] Alia Fonseca RN Cough Social History Tobacco Use Types Packs/Day Years Used Date Smoking Tobacco: Never Smokeless Tobacco: Never Sex and Gender Information Value Date Recorded Sex Assigned at Not on file Gender Identity Not on file Sexual Orientation Not on file documented as of this encounter Miscellaneous Notes * Telephone Encounter - Alia Fonseca RN - 10/04/2017 4:04 PM EDT Ms. Sitll is s/p thyroidectomy with Dr. Velasquez on 10/02/17. She calls today to report a cough that start the evening of surgery. She has a lot of phlegm and will intermittently have a strong cough.She feels fine otherwise. No fevers, chills, SOB, chest pain, pain with breathing, etc. Discussed pushing fluids, trying an antihistamine if her symptoms are bothersome. Discussed s/s to watch for especially fevers and breathing problems/pain. She'll call if anything changes. documented in this encounter Plan of Treatment Not on file documented as of this encounter Visit Diagnoses Not on filedocumented in this encounter Care Teams Geophysical Observer Relationship Specialty Start Date End Date Rell Brady MD [address] [place] [address] PCP - General 02/15/12 documented as of this encounter
--- OUTSIDE RECORDS SUMMARY | 2023-09-25 02:45 | XMS_ITS | Encounter Summary ---
Author Organization [facility] [place] [address] Care Team Providers Care Solid Fiber Paster Operator Name Role Phone Rell Brady MD Primary Care Provider [phone] Reason for Visit * Auth/Cert Specialty Diagnoses / Procedures Referred By Contac t Referred To Contact Diagnoses THYROID NODULE Procedures PRO THYROIDECTOMY PRG EMG, LARYNX THYROIDECTOMY, TOTAL OR COMPLETE (WRVU 15.04) FACIAL NERVE MONITORING, SETUP LARYNGEAL (WRVU 1.57) Referral ID Status Reason Start Date Expiration Date Visits Re quested Visits Authorized [id number] 1 1 Encounter Details Date Type Department Care Team (Late st Contact Info) Description 10/02/2017 10:32 AM EDT - 10/02/2017 1:10 PM EDT Surgery [place] [address] Mane Barros MD [facility] [place] [address] THYROIDECTOMY, TOTAL OR COMPLETE (WRVU 15.04) Social History Tobacco Use Types Packs/Day Years Used Date Smoking Tobacco: Never Smokeless Tobacco: Never Sex and Gender Information Value Date Recorded Sex Assigned at Not on file Gender Identity Not on file Sexual Orientation Not on file documented as of this encounter Last Filed Vital Signs Vital Sign Reading Time Taken Comments Blood Pressure 186/84 10/02/2017 9:06 AM EDT Pulse 71 10/02/2017 9:06 AM EDT Temperature 36.6 ??C (97.9 ??F) 10/02/2017 9:06 AM ED T Respiratory Rate 14 10/02/2017 9:06 AM EDT Oxygen Saturation 98% 10/02/2017 9:06 AM EDT Inhaled Oxygen Concentration - - Weight 90.7 kg (200 lb) 10/02/2017 9:06 AM EDT Height 175.3 cm (5' 9) 10/02/2017 9:06 AM EDT Body Mass Index 29.53 10/02/2017 9:06 AM EDT documented in this encounter Discharge Instructions * Discharge Instructions* Sangita Caraballo RN - 10/02/2017 2:55 PM EDT Next [...] Take NSAIDS or Tylenol every 6 hours [id number] for the first 3-5 days following surgery [...] Barros in approximately 6 weeks Please call [phone] to confirm the date and time of your appointment if you do not hear from us in the next 2 weeks or if you need to reschedule. Future Appointments Date Time Provider Department [employer] 11/08/2017 2:05 PM NATASHA, THREE L Lab 3L MIKA STUARTPA 11/08/2017 3:15 PM Mane Barros MD Le[facility] [...] days after surgery. Phone number for questions: [phone] before 5 PM on weekdays [phone] after 5 PM and on weekends/holidays. Ask for the general surgery resident department operations manager. documented in this encounter Medications at Time [...] multinodular goiter and maya's who presents to [facility] for total thyroidectomy S: Luis Still endorses [...] Barros MD - 10/02/2017 2:31 PM EDT [facility] Operative Note Patient Name: Luis Still : [id number] MR#: [id number] Case Date: 10/02/2017 Surgeon: Surgeon(s) and Role: * Mane Barros MD - Primary * Huog Suarez MD Preoperative diagnosis: THYROID NODULE Postoperative diagnosis: THYROID NODULE Procedure(s) (LRB): THYROIDECTOMY, TOTAL OR COMPLETE (WRVU 15.04) (N/A) FACIAL NERVE MONITORING, SETUP LARYNGEAL (WRVU 1.57) (N/A) Anesthesia: General Estimated Blood Loss: 43 mL Specimens removed during surgery: Order Name Source Comment Collection Info [place] [address] THYROID NODULE Right thryoid lobe and isthmus. excision No 10/02/2017 1:25 PM Number of tissue samples (in container) 1 Time specimen removed from patient: 1:24 PM Biospecimen to store? [place] [address] THYROID NODULE Left lobe of thyroid excision [...] anesthesia was achieved by anesthesiology with the Laser View recurrent laryngeal nerve monitoring system. A natural [...] Operative Note Patient Name: Luis Still : [id number] MR#: [id number] Case Date: 10/02/2017 Surgeon: Surgeon(s) and Role: [...] Order Time SPE[place]IMEN [place]OLOGY [place] 22 [address]43 THYROID NODULE Right thryoid lobe and isthmus. excision No 10/02/2017 1:25 PM Number of tissue samples (in container) 1 Time specimen removed from patient: 1:24 PM Biospecimen to store? No [place]Y [place] 22 [address]36 THYROID NODULE Left lobe of thyroid excision [...] PM EDT 10/02/2017 2:[address] [facility] - 10/02/2017 2:13 PM EDT Specimen requisition ordered. ??Separate Pathology report to follow Mane Barros MD PATHOLOGY/CYTOLOG Y ORDERABLES Performing Organization Address [facility] [place] [address] * Specimen to Pathology (10/02/2017 1:25 PM EDT) AP Specimen 10/02/2017 1:25 PM EDT 10/02/2017 1:[address] [facility] - 10/02/2017 1:25 PM EDT Specimen requisition ordered. ??Separate Pathology report to follow Mane Barros MD PATHOLOGY/CYTOLOG Y ORDERABLES Performing Organization Address [facility] [address]/[facility] [place] [address] * Surgical Pathology Report (10/02/2017 1:24 PM EDT) FINAL DIAGNOSIS (AP) [id number] ? Location: [facility]; [facility]; A The signing pathologist has (i) examined the relevant preparation(s) for the specimen(s) and (ii) rendered or confirmed the diagnosis(es). . 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 - Chronic lymphocytic (Maya) thyroiditis. B - Left lobe of thyroid, excision: - Chronic lymphocytic (Maya) thyroiditis with ?chronic/sclerosing change. Electronically signed by: ??Giacomo BARAHONA, Preston Azevedo Verified: ??10/09/2017 ?Pathologist Performed at: ??-[facility] Dept. of Pathology, [place], [place] ADDITIONAL STUDIES Whole slide scan: patient relations representative slides Multiple deeper levels examined for select [...] inked black. . SPECIMEN PROCESSING SECTIONS/PROCESSING: (1-6) patient relations representative sections including the entire lesion and patient relations representative normal parenchyma going from cranial to caudal; [...] caudal. (T11) ??aemr/shb 10/09/2017 8:[address] [facility] 10/02/2017 1:24 PM EDT Mane Barros MD PATHOLOGY/CYTOLOG Y ORDERABLES [facility] [place] [address] documented in this encounter Visit Diagnoses Not [...] Given 10/02/2017 9:30 AM EDT 1,000 mg BUpivacaine (PF) (MARCAINE) 0.5 % (5 mg/mL) injection ONCE PRN, Starting on Sun10/02/17 at 1205, Until Sun10/02/17 at 1956, Intra-Operative (Intra-Procedure), Routine Given 10/02/2017 12:05 PM EDT 5 mLs 19- Surgical Site fentaNYL (PF) 50mcg/mL injection 12.5-25 mcg, Intravenous, EVERY 5 MIN PRN, Starting on Sun10/02/17 at 1454, Until Sun10/02/17 at 1756, Pain, Give 12.5 mcg every [...] 1452, Until Sun10/02/17 at 1956, Pain, Routine Given 10/02/2017 3:26 [...] 9:30 AM EDT 1,000 mLs 100 mL/hr lidocaine-EPINEPHrine 1 %-1:200,000 injection ONCE PRN, Starting on Sun10/02/17 at 1205, Until Sun10/02/17 at 1956, Intra-Operative (Intra-Procedure), Routine Given 10/02/2017 12:05 PM EDT 5 mLs 19- Surgical Site documented in this encounter Active and Recently Administered Medications Times are shown in EDT. Scheduled Medication Order 09/30/2017 10/01/2017 10/02/2017 acetaminophen (TYLENOL) tablet 1,000 mg (COMPLETED) 1,000 mg, Oral, ONCE, 1 dose, On e 10/02/17 at 0930, Administer with SIP of H2O only., Day of Surgery (Day of Procedure), Routine 09 (Given - Provid er: Lola Musa RN) gabapentin (NEURONTIN) capsule 600 mg (COMPLETED) 600 mg, Oral, ONCE, 1 dose, On Sun10/02/17 at 0930, Administer with SIP of H2O only., Day of Surgery (Day of Procedure), Routine 09 (Given - Provid er: Lola Musa RN) Continuous Medication Order 09/30/2017 10/01/2017 10/02/2017 lactated Ringers infusion 1,000 mL (CANCELED) 1,000 mL, at 100 mL/hr, Intravenous, CONTINUOUS, Starting on Sun10/02/17 at 0930, Until Sun10/02/17 at 1756, Day of Surgery (Day of Procedure) 0930 (New Bag - Prov ider: Lola uMsa RN)1121 (New Bag - Provider: Tania Frausto MD)1327 (Anesthesia Volume Adjustment - Provider: Tania Frausto MD)1328 (New Bag - Provider: Tania Frausto MD) PRN Medication Order 09/30/2017 10/01/2017 10/02/2017 acetaminophen (TYLENOL) tablet 650 mg 650 mg, Oral, EVERY 4 HOURS PRN, Starting on Sun10/02/17 at 1452, Until 10/02/17 at 1956, Pain, Maximum dose of acetaminophen is 4000 mg from all sources in 24 hours., Routine BUpivacaine (PF) (MARCAINE) 0.5 % (5 mg/mL) injection (CANCELED) ONCE PRN, Starting on Sun10/02/17 at 1205, Until 10/02/17 at 1956, Intra-Operative (Intra-Procedure), Routine 1205 (Given [...] Routine 1537 (Given - Provid er: Sangita Caraballo RN) ketorolac (TORADOL) injection 15 mg 15 mg, Intravenous, EVERY 6 HOURS PRN, Starting on Sun10/02/17 at 1452, Until Sun10/02/17 at 1956, Pain, Routine 1526 (Given - Provid er: Sangita Caraballo RN) labetalol (NORMODYNE,TRANDATE) injection 20 mg 20 mg, Intravenous, EVERY 4 HOURS PRN, Starting on Sun10/02/17 at 1452, Until Sun10/02/17 at 1956, High Blood Pressure, sbp>160, Routine 1525 (Given - Provid er: Sangita Caraballo RN) lidocaine (XYLOCAINE) 10 mg/mL (1 %) [...] Sun10/02/17 at 1656, Until Sun10/02/17 at 1956, SANGITA CARABALLO: cabinet override 1700 (Due) documented in this encounter Care Teams Solid Fiber Paster Operator Relationship Specialty Start Date End Date Rell Brady MD [address] [place] [address] PCP - General 02/15/12 documented as of this encounter
--- OUTSIDE RECORDS SUMMARY | 2023-09-25 02:46 | XMS_ITS | Encounter Summary ---
Author Organization [facility] Address [address] [place] [address] Care Team Providers Care Bullion Weigher Name Role Phone Unavailable Primary Care Provider Unavailabl e Encounter Details Date Type Department Care Team (Late st Contact Info) Description 08/01/2001 Results Only [facility] conversion [address] [place] [address] Yaquelin Edwards, SELENE Social History Tobacco Use Types Packs/Day Years Used Date Smoking Tobacco: Never Assessed Sex and Gender Information Value Date Recorded Sex Assigned at Not on file Gender Identity Not on file Sexual Orientation Not on file documented as of this encounter Plan of Treatment Not on file documented as of this encounter Procedures Procedure Name Priority Date/Time Associated Diagnosis Comments CYTOPATHOLOGY Routine 08/01/2001 0:00 EDT documented in this encounter Results * CYTOPATHOLOGY (08/01/2001 0:00 EDT) Pathology Report: CYTOPATHOLOGY REPORT Reports generated via electronic interface contain original data; however they are lacking the format of the original report. Caution should be taken when reading/interpreti ng unformatted reports. Name: ? LUIS PARDO ? Accession #: ? [id number] : ? 1960 (Age: 40) ??F ?Collect Date: ? 08/01/2001 Location: ? [facility] ? Receive Date: ? 08/05/2001 Provider: ?YAQUELIN EDWARDS SKETCH MAKER Copy to: ? Specimen/Source: ?ThinPrep Pap Test, Cervix/Endocervix Last Menstrual Period: ? 07/20/01 ? SPECIMEN ADEQUACY ? Satisfactory for Evaluation - transformation zone component present GENERAL CATEGORIZATION ? Negative for Intraepithelial Lesion or Malignancy ? Document reviewed and electronically signed by: ? ELVIRA Merritt(ASCP) ? Report Date: ??08/07/2001 09:16 End of Report [facility] 08/01/2001 08/05/2001 Yaquelin Edwards NP PATHOLOGY ORDERABLES [facility] [address] [place] [address] documented in this encounter Visit Diagnoses Not on filedocumented in this encounter
--- OUTSIDE RECORDS SUMMARY | 2023-09-25 02:46 | XMS_ITS | Encounter Summary ---
Author Organization [facility] Address [facility] [place] [address] Care Team Providers Care Asset Accountant Name Role Phone Rell Brady MD Primary Care Provider [phone] Reason for Visit * Reason Comments Medication Refill Encounter Details Date Type Department Care Team (Late st Contact Info) Description 11/13/2012 [place] [address] Rell Burrell MD [facility] [place] [address] Social History Tobacco Use Types Packs/Day Years Used Date Smoking Tobacco: Never Sex and Gender Information Value Date Recorded Sex Assigned at Not on file Gender Identity Not on file Sexual Orientation Not on file documented as of this encounter Plan of Treatment Not on file documented as of this encounter Visit Diagnoses Not on filedocumented in this encounter Care Teams Asset Accountant Relationship Specialty Start Date End Date Rell Brady MD [address] [place] [address] PCP - General 02/15/12 documented as of this encounter
--- OUTSIDE RECORDS SUMMARY | 2023-09-25 02:46 | XMS_ITS | Encounter Summary ---
Author Organization [facility] Address [address] [place] [address] Care Team Providers Care Choir Member Name Role Phone Unknown, Provider Primary Care Provider [phone] Encounter Details Date Type Department Care Team (Latest Contact Info) Description 04/03/2013 14:20 EST - 04/03/2013 23:59 EST Hospital Encounter [address] [address] Unknown, Provider, Discharge Disposition: Home or Self Care Social History Tobacco Use Types Packs/Day Years Used Date Smoking Tobacco: Never Assessed Sex and Gender Information Value Date Recorded Sex Assigned at Not on file Gender Identity Not on file Sexual Orientation Not on file documented as of this encounter Discharge Disposition Disposition Code Departure Means Destination Home or Self Nursing Home documented in this encounter Plan of Treatment Not on file documented as of this encounter Visit Diagnoses Not on filedocumented in this encounter Care Teams Choir Member Relationship Specialty Start Date End Date Unknown, Provider, PCP - General 01/10/10 documented as of this encounter
--- OUTSIDE RECORDS SUMMARY | 2023-09-25 02:46 | XMS_ITS | Encounter Summary ---
Author Organization [facility] Address [address] [place] [address] Care Team Providers Care Tile Shader Name Role Phone Unavailable Primary Care Provider Unavailabl e Encounter Details Date Type Department Care Team (Late st Contact Info) Description 09/15/2002 Results Only [facility] conversion [address] [place] [address] Yaquelin Edwards, SELENE Social History Tobacco Use [...] Priority Date/Time Associated Diagnosis Comments CYTOPATHOLOGY Routine 09/15/2002 0:00 EDT documented in this encounter Results * CYTOPATHOLOGY (09/15/2002 0:00 EDT) Pathology Report: CYTOPATHOLOGY REPORT Reports generated via electronic interface contain original data; however they are lacking the format of the original report. Caution should be taken when reading/interpreti ng unformatted reports. Name: ? LUIS PARDO ? Accession #: ? [id number] : ? 1960 (Age: 41) ??F ?Collect Date: ? 09/15/2002 Location: ? [facility] ? Receive Date: ? 09/16/2002 Provider: ?YAQUELIN EDWARDS SYSTEM SUPPORT ADMINISTRATOR Copy to: ? Specimen/Source: ?ThinPrep Pap Test, Cervix/Endocervix Last Menstrual Period: ? 09/09/02 Previous Gynecologic Pathology: ? Benign cellular changes: & 05/27 Other: ? Additional clinical information: 08/01/01 pap negative ? SPECIMEN ADEQUACY ? Satisfactory for Evaluation - transformation zone component present GENERAL CATEGORIZATION ? Other, see interpretation INTERPRETATION ? Endometrial cells present in a woman equal to or greater than age 40. Negative for Intraepithelial Lesion or Malignancy. ? COMMENT ? Benign appearing endometrial cells on Pap tests are usually a normal finding in women with regular menstrual cycles, especially if the Pap was collected during the first half of the menstrual cycle. ??There is data showing that endometrial cells on Pap tests may be associated with endometrial/uterin e abnormalities in post menopausal women or in premenopausal women with abnormal bleeding. ??There is limited data on the significance of benign endometrial cells in post menopausal women on HRT. ??Clinical correlation is recommended. Note: ?? The Pap test is not an accurate test for the screening of endometrial lesions and should not be used as a follow up in patients with clinical suspicion of endometrial pathology. ? Document reviewed and electronically signed by: ? GO Foster(ASCP) ? Report Date: ??09/19/2002 06:10 End of Report [facility] 09/15/2002 09/16/2002 Yaquelin Edwards NP PATHOLOGY ORDERABLES [facility] [address] [place] [address] documented in this encounter Visit Diagnoses Not on filedocumented in this encounter
--- OUTSIDE RECORDS SUMMARY | 2023-09-25 02:46 | XMS_ITS | Encounter Summary ---
Author Organization [facility] [place] [address] Care Team Providers Care Driver Wheelchair Name Role Phone Ra Marks MD Primary Care Provider [phone] Encounter Details Date Type Department Care Team (Late st Contact Info) Description 02/24/2010 [place] [id number] Rell Burrell MD [facility] [place] [address] Social History Tobacco Use Types Packs/Day Years Used Date Smoking Tobacco: Never Assessed Sex and Gender Information Value Date Recorded Sex Assigned at Not on file Gender Identity Not on file Sexual Orientation Not on file documented as of this encounter Plan of Treatment Not on file documented as of this encounter Procedures Procedure Name Priority Date/Time Associated Diagnosis Comments FREE THYROXINE INDEX JOHN 02/24/2010 1:35 PM EST T UPTAKE JOHN 02/24/2010 1:35 PM EST TSH JOHN 02/24/2010 1:35 PM EST T4 TOTAL JOHN 02/24/2010 1:35 PM EST documented in this encounter Results * REFLEX LAB-FREE THYROXINE INDEX (02/24/2010 1:35 PM EST) FTI 8.4 4.5 - 9.5 mcg/dL [facility] Comment: Females: 5. 5-10.5 mcg/dL Blood specimen (specimen) 02/24/2010 1:35 PM EST 02/24/2010 1:42 PM EST Rell Burrell MD CHEMISTRY ORDERABLES Performing Organization Address [facility] Phone Number [facility] * TSH (02/24/2010 1:35 PM EST) [facility] TSH 0.28 0.27 - 4.20 mcIU/mL [facility] Comment: Cord Blood Reference Range: ??0.35 23.00 uIU/mL Blood specimen (specimen) 02/24/2010 1:35 PM EST 02/24/2010 1:42 PM EST Rell Burrell MD CHEMISTRY ORDERABLES Performing Organization Address [facility] Phone Number [facility] * T4 (02/24/2010 1:35 PM EST) [facility] T4, total 9.1 5.1 - 10.8 mcg/dL [facility] Comment: Reference Range: [place] Cord Blood: ??6.9-14.4 ug/dL Females: ??7.2-14.2 ug/dL Pediatric ranges: ??Interpret with caution-ranges have not been verified Blood specimen (specimen) 02/24/2010 1:35 PM EST 02/24/2010 1:42 PM EST Rell Burrell MD CHEMISTRY ORDERABLES Performing Organization Address [facility] Phone Number [facility] * T3, UPTAKE (02/24/2010 1:35 PM EST) Pathologist [facility] T Uptake 1.08 0.80 - 1.30 ratio [facility] Comment: Tup assay is directly proportional to Thyroid binding protein concentration, thus FT4 Index = TT4/Tup. Cord Blood Reference Range: ??0.74-1.28. Blood specimen (specimen) 02/24/2010 1:35 PM EST 02/24/2010 1:42 PM EST Rell Burrell MD CHEMISTRY ORDERABLES Performing Organization Address City/State/[facility] Co ms Phone Number [facility] documented in this encounter Visit Diagnoses Not on filedocumented in this encounter Care Teams Driver Wheelchair Relationship Specialty Start Date End Date Ra Marks MD [address] [place] [address] PCP - General 01/18/10 02/14/12 documented as of this encounter
--- OUTSIDE RECORDS SUMMARY | 2023-09-25 02:46 | XMS_ITS | Encounter Summary ---
Author Organization [facility] Address [address] [place] [address] Care Team Providers Care Supervisor Process Testing Name Role Phone Unknown, Provider Primary Care Provider [phone] Reason for Visit * Reason Onset Date Comments Assistant Auditor Message 02/10/2023 Encounter Details Date Type Department Care Team (Late st Contact Info) Description 02/10/2023 Telephone [facility] Adult Primary Care - [address] [phone] Araceli Rodriguez MD [address] [place] [phone] Assistant Auditor Message Social History Tobacco Use Types Packs/Day Years Used Date Smoking Tobacco: Never Assessed Sex and Gender Information Value Date Recorded Sex Assigned at Not on file Gender Identity Not on file Sexual Orientation Not on file documented as of this encounter Miscellaneous Notes * Telephone Encounter - Araceli Rodriguez MD - 02/12/2023 0732 EST error documented in this encounter Plan of Treatment Not on file documented as of this encounter Visit Diagnoses Not on filedocumented in this encounter Care Teams Supervisor Process Testing Relationship Specialty Start Date End Date Unknown, ProviderMD PCP - General 01/10/10 documented as of this encounter
--- OUTSIDE RECORDS SUMMARY | 2023-09-25 02:46 | XMS_ITS | Encounter Summary ---
Author Organization [facility] Address [address] [place] [address] Care Team Providers Care Toxics Program Officer Name Role Phone Unavailable Primary Care Provider Unavailabl e Encounter Details Date Type Department Care Team (Late st Contact Info) Description 01/20/2009 Orders Only [facility] [address] [place] [address] Yaquelin Edwards, SELENE Social History Tobacco Use Types Packs/Day Years Used Date Smoking Tobacco: Never Assessed Sex and Gender Information Value Date Recorded Sex Assigned at Not on file Gender Identity Not on file Sexual Orientation Not on file documented as of this encounter Plan of Treatment Not on file documented as of this encounter Procedures Procedure Name Priority Date/Time Associated Diagnosis Comments HPV DETECTION, HIGH RISK TYPES Routine 01/20/2009 12:23 EST CYTOPATHOLOGY Routine 01/20/2009 0:00 EST documented in this encounter Results * HUMAN PAPILLOMA VIRUS DNA TEST (01/20/2009 12:23 EST) Specimen Description Cervix, ThinPrep vial [facility] Result Negative for HPV types 16, 18, 31, 33, 35, 39, 45, 51, 52, 56, 58, 59, and 68. [facility] Report Status Final 02/11/2009 [facility] 01/20/2009 12:2 3 EST 01/28/2009 12:23 EST Yaquelin Edwards NP MICROBIOLOGY - GENER AL ORDERABLES [facility] [address] [place] [address] * CYTOPATHOLOGY (01/20/2009 0:00 EST) Pathology Report: CYTOPATHOLOGY REPORT ? Reports generated via electronic interface contain original data; ? however they are lacking the format of the original report. ? Caution should be taken when reading/interpreti ng unformatted reports. ? Name: ? LUIS PARDO ? Accession #: ? [id number] ? : ? 1960 (Age: 48) ??F ?Collect Date: ? 01/20/2009 ? Location: ? [facility] ? Receive Date: ? 01/22/2009 ? Provider: ?YAQUELIN M KAHLIL BREW HOUSE SUPERVISOR ? Copy to: ? Specimen/Source: ?Pap Test, Cervix/Endocervix, ThinPrep Imaging System ? with manual evaluation ? Last Menstrual Period: ? 11/16/09 ? Hormonal/Contracep tive Status: ? Tubal ligation: bilateral ? Previous Gynecologic Pathology: ? Benign cellular changes: 10/99, 4/01 ? Other: ? HPVDX - HPV testing requested regardless of diagnosis on current ThinPrep Pap ?? test. ? SPECIMEN ADEQUACY ? Satisfactory for Evaluation ? - transformation zone component present ? GENERAL CATEGORIZATION ? Negative for Intraepithelial Lesion or Malignancy ? Document reviewed and electronically signed by: ? Lynan Renny, CT(ASCP) ? Report Date: ??01/27/2009 09:58 ? End of Report ? [facility] 01/20/2009 01/22/2009 Yaquelin Edwards NP PATHOLOGY ORDERABLES Performing Organization Address City/State/[facility] Co de Phone Number [facility] [address] [place] [address] documented in this encounter Visit Diagnoses Not on filedocumented in this encounter
--- OUTSIDE RECORDS SUMMARY | 2023-09-25 02:46 | XMS_ITS | Encounter Summary ---
Author Organization [facility] Address [address] [place] [address] Care Team Providers Care Cable Engineer Name Role Phone Unavailable Primary Care Provider Unavailabl e Encounter Details Date Type Department Care Team (Late st Contact Info) Description 11/19/2006 Results Only [facility] [place] conversion [address] [place] [address] Yaquelin Edwards, SELENE Social History Tobacco Use [...] Priority Date/Time Associated Diagnosis Comments CYTOPATHOLOGY Routine 11/19/2006 0:00 EDT documented in this encounter Results * CYTOPATHOLOGY (11/19/2006 0:00 EDT) Pathology Report: CYTOPATHOLOGY REPORT Reports generated via electronic interface contain original data; however they are lacking the format of the original report. Caution should be taken when reading/interpreti ng unformatted reports. Name: ? LUIS PARDO ? Accession #: ? [id number] : ? 1960 (Age: 46) ??F ?Collect Date: ? 11/19/2006 Location: ? [facility] ? Receive Date: ? 11/21/2006 Provider: ?YAQUELIN EDWARDS BRAIN SURGEON Copy to: ? Specimen/Source: ?ThinPrep Pap Test, Cervix/Endocervix, processed on [employer] ThinPrep Imaging System, with manual evaluation Last Menstrual Period: ? 11/12/06 Previous Gynecologic Pathology: ? Benign cellular changes: , 05/27 Other: ? HPVA - HPV testing requested if ASC-US on the current ThinPrep Pap test. ? SPECIMEN ADEQUACY ? Satisfactory for Evaluation - transformation zone component present GENERAL CATEGORIZATION ? Negative for Intraepithelial Lesion or Malignancy ? Document reviewed and electronically signed by: ? Chantelle Blancas, SCT(ASCP) ? Report Date: ??11/27/2006 11:02 End of Report [facility] 11/19/2006 11/21/2006 Yaquelin Edwards NP PATHOLOGY ORDERABLES [facility] [address] [place] [address] documented in this encounter Visit Diagnoses Not on filedocumented in this encounter
--- OUTSIDE RECORDS SUMMARY | 2023-09-25 02:46 | XMS_ITS | Encounter Summary ---
Author Organization [facility] [place] [address] Care Team Providers Care Compensator Worker Name Role Phone Rell Brady MD Primary Care Provider [phone] Encounter Details Date Type Department Care Team (Late st Contact Info) Description 03/17/2015 Orders [place] [address] Rell Burrell MD [facility] [place] [address] Goiter Social History Tobacco Use Types Packs/Day Years Used Date Smoking Tobacco: Never Smokeless Tobacco: Never Sex and Gender Information Value Date Recorded Sex Assigned at Not on file Gender Identity Not on file Sexual Orientation Not on file documented as of this encounter Plan of Treatment Not on file documented as of this encounter Results * (ABNORMAL) T4, free (03/18/2015 7:46 AM EST) Free T4 1.80(H) 0.93 - 1.70 ng/dL [facility] Blood specimen (specimen) 03/18/2015 7:46 AM EST 03/18/2015 8:05 AM EST Narrative Resulting Agency Comment Spec In Lab Rell Burrell MD CHEMISTRY ORDERABLES [facility] [employer] * TSH (03/18/2015 7:46 AM EST) TSH 0.35 0.27 - 4.20 mcIU/mL [facility] Blood specimen (specimen) 03/18/2015 7:46 AM EST 03/18/2015 8:05 AM EST Narrative Resulting Agency Comment Spec In Lab Rell Burrell MD CHEMISTRY ORDERABLES [facility] documented in this encounter Visit Diagnoses Diagnosis Goiter Goiter, unspecified documented in this encounter Care Teams Compensator Worker Relationship Specialty Start Date End Date Rell Brady MD [address] [place] [address] PCP - General 02/15/12 documented as of this encounter
--- OUTSIDE RECORDS SUMMARY | 2023-09-25 02:46 | XMS_ITS | Encounter Summary ---
Author Organization [facility] Address [facility] [place] [address] Care Team Providers Care Moisture Conditioner Operator Name Role Phone Rell Brady MD Primary Care Provider [phone] Reason for Visit * Reason Comments Medication Refill Encounter Details Date Type Department Care Team (Late st Contact Info) Description 01/07/2016 Ref[place] [address] Rell Burrell MD [facility] [place] [address] Social History Tobacco Use Types Packs/Day Years [...] on filedocumented in this encounter Care Teams Moisture Conditioner Operator Relationship Specialty Start Date End Date Rell Brady MD [address] [place] [address] PCP - General 02/15/12 documented as of this encounter
--- OUTSIDE RECORDS SUMMARY | 2023-09-25 02:46 | XMS_ITS | Encounter Summary ---
Author Organization [facility] Address [address] [place] [address] Care Team Providers Care Mechanical Applications Engineer Name Role Phone Unavailable Primary Care Provider Unavailabl e Encounter Details Date Type Department Care Team (Late st Contact Info) Description 02/27/2001 Results Only [facility] conversion [address] [place] [address] Rell Greenberg MD [address] [place] [address] Social History Tobacco Use Types Packs/Day Years Used Date Smoking Tobacco: Never Assessed Sex and Gender Information Value Date Recorded Sex Assigned at Not on file Gender Identity Not on file Sexual Orientation Not on file documented as of this encounter Plan of Treatment Not on file documented as of this encounter Procedures Procedure Name Priority Date/Time Associated Diagnosis Comments SURGICAL PATHOLOGY Routine 02/27/2001 0:00 EST documented in this encounter Results * SURGICAL PATHOLOGY (02/27/2001 0:00 EST) Pathology Report: SURGICAL PATHOLOGY REPORT Reports generated via electronic interface contain original data; however they are lacking the format of the original report. Caution should be taken when reading/interpreti ng unformatted reports. Name: ? LUIS PARDO ? Accession #: ? [id number] ? : ? 1960 (Age: 40) ??F ? Collect Date: ? 02/27/2001 ? Location: ? [facility] ? Receive Date: ? 02/27/2001 ? Provider: DOT GREENBERG MD Copy to: BEENA DIGGS MD ? Final Pathologic Diagnosis: ? Anal mucosa, submitted as internal and external hemorrhoids, resection: - ??Squamous and colonic mucosa with dilated submucosal vessels consistent with hemorrhoids. Document reviewed and electronically signed by: Tequila Valentine MD Report ??Date: 02/28/2001 16:32 By the signature above, the attending physician certifies that he/she has personally conducted a gross and/or microscopic examination of the described specimens and rendered or confirmed the above diagnosis. Specimen(s) Received: ? Hemorrhoids, int + ext Clinical History: ? Hemorrhoids Gross Description: ? Received in formalin labelled Carmona-Bouffard and hemorrhoids int + ext are three, irregularly shaped, pink-smith to purple-capone, markedly wrinkled, mucosal tissue fragments that range from 2.3 x 1.8 x 1.8 cm to 3.0 x 2.0 x 1.2 cm. ??Sectioning through the fragment reveals pink-smith to red-brown, hemorrhagic tissue with apparent dilated blood vessels. ??Two lead customer service representative sections are submitted in one cassette. ??(Jason Ochoa)/dtl End of Report [facility] 02/27/2001 02/27/2001 15: 22 EST Rell Greenberg MD PATHOLOGY ORDERABLES [facility] [address] [place] [address] documented in this encounter Visit Diagnoses Not on filedocumented in this encounter
--- OUTSIDE RECORDS SUMMARY | 2023-09-25 02:46 | XMS_ITS | Encounter Summary ---
Author Organization [facility] Address [facility] [place] [address] Care Team Providers Care Inbound Customer Service Representative Name Role Phone Rell Brady MD Primary Care Provider [phone] Reason for Visit * Reason Comments Thyroid Problem follow up Encounter Details Date Type Department Care Team (Late st Contact Info) Description 02/15/2012 8:40 AM EST Office [place] [address] [facility] [place] [address] Hypothyroid (Primary Dx) Discharge Disposition: Home Social History Tobacco Use Types Packs/Day Years Used Date Smoking Tobacco: Never Sex and Gender Information Value Date Recorded Sex Assigned at Not on file Gender Identity Not on file Sexual Orientation Not on file documented as of this encounter Last Filed Vital Signs Vital Sign Reading Time Taken Comments Blood Pressure 137/90 02/15/2012 9:50 AM EST Pulse 89 02/15/2012 9:50 AM EST Temperature - - Respiratory Rate - - Oxygen Saturation - - Inhaled Oxygen Concentration - - Weight 88.5 kg (195 lb) 02/15/2012 9:50 AM EST Height - - Body Mass Index - - documented in this encounter Progress Notes * Rell Burrell MD - 02/15/2012 10:02 AM EST Subjective: Patient ID: Luis Still is a 51 y.o. female who is here for 2 year follow-up for her thyroid nodule. Not bothered by nodule but people have mentioned it more. Currently, on L-T4 300 ug qd, Daughter (22 yo) recently dx's with positive thyroid abs and normal TFTs. HPI Review of Systems Objective: Physical Exam Constitutional: She is oriented to person, place, and time. She appears well- developed and well-nourished. Neck: Thyromegaly present. Visible large thyroid nodule just R of midline. 3 cms in diameter, moderately firm, non-tender. Lymphadenopathy: She has no cervical adenopathy. Neurological: She is alert and oriented to person, place, and time. Psychiatric: She has a normal mood and affect. Her behavior is normal. Thought content normal. Assessment and Plan: Recent Results (from the past 24 hour(s)) TSH Component Value Range TSH 0.49 0.27 - 4.20 (mcIU/mL) T4, FREE Component Value Range Free T4 1.36 0.90 - 1.60 (ng/dL) T4 Component Value Range T4, total 7.4 5.1 - 10.8 (mcg/dL) T UPTAKE Component Value Range T Uptake 1.04 0.80 - 1.30 (ratio) Insignificant change in size of thyroid nodule since last visit. 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 Discussed possible surgery if she wants to remove nodule for cosmetic reasons in future. Not not interested at this time. 20 of 25 minute appt spent in face to face counseling discussing the Surgery would involve and alsodiscussed her daughter's situation. 2 year appt made. documented in this encounter Plan of Treatment Not on file documented as of this encounter Procedures Procedure Name Priority Date/Time Associated Diagnosis Comments FREE THYROXINE INDEX Routine 02/15/2012 8:55 AM EST T UPTAKE Routine 02/15/2012 8:55 AM EST Hypothyroid TSH Routine 02/15/2012 8:55 AM EST Hypothyroid T4, FREE Routine 02/15/2012 8:55 AM EST Hypothyroid T4 TOTAL Routine 02/15/2012 8:55 AM EST Hypothyroid documented in this encounter Results * Free Thyroxine Index (02/15/2012 8:55 AM EST) FTI 7.1 4.5 - 9.5 mcg/dL [facility] Comment: Females: 5. 5-10.5 mcg/dL Blood specimen (specimen) 02/15/2012 8:55 AM EST 02/15/2012 9:10 AM EST Narrative Resulting Agency Comment Spec In Lab Rell Burrell MD CHEMISTRY ORDERABLES Performing Organization Address [facility] Phone Number [facility] * T Uptake (02/15/2012 8:55 AM EST) T Uptake 1.04 0.80 - 1.30 ratio [facility] Comment: Tup assay is directly proportional to Thyroid binding protein concentration, thus FT4 Index = TT4/Tup. Cord Blood Reference Range: ??0.74-1.28. Blood specimen (specimen) 02/15/2012 8:55 AM EST 02/15/2012 9:10 AM EST Narrative Resulting Agency Comment Spec In Lab Rell Burrell MD CHEMISTRY ORDERABLES Performing Organization Address [facility] Phone Number [facility] * T4 (02/15/2012 8:55 AM EST) Pathologist [facility] T4, total 7.4 5.1 - 10.8 mcg/dL [facility] Comment: Reference Range: [place] Cord Blood: ??6.9-14.4 mcg/dL Females: ??7.2-14.2 mcg/dL Pediatric ranges: ??Interpret with caution-ranges have not been verified Blood specimen (specimen) 02/15/2012 8:55 AM EST 02/15/2012 9:10 AM EST Narrative Resulting Agency Comment Spec In Lab Rell Burrell MD CHEMISTRY ORDERABLES Performing Organization Address [facility] de Phone Number [facility] * T4, free (02/15/2012 8:55 AM EST) Free T4 1.36 0.90 - 1.60 ng/dL [facility] Blood specimen (specimen) 02/15/2012 8:55 AM EST 02/15/2012 9:10 AM EST Narrative Resulting Agency Comment Spec In Lab Rell Burrell MD CHEMISTRY ORDERABLES Performing Organization Address [facility] de Phone Number [facility] * TSH (02/15/2012 8:55 AM EST) TSH 0.49 0.27 - 4.20 mcIU/mL [facility] Blood specimen (specimen) 02/15/2012 8:55 AM EST 02/15/2012 9:10 AM EST Narrative Resulting Agency Comment Spec In Lab Rell Burrell MD CHEMISTRY ORDERABLES Performing Organization Address [facility] de Phone Number [facility] documented in this encounter Visit Diagnoses Diagnosis Hypothyroid- Primary Unspecified hypothyroidism documented in this encounter Care Teams Inbound Customer Service Representative Relationship Specialty Start Date End Date Rell Brady MD [address] [place] [address] PCP - General 02/15/12 documented as of this encounter
--- OUTSIDE RECORDS SUMMARY | 2023-09-25 02:46 | XMS_ITS | Encounter Summary ---
Author Organization [facility] Address [address] [place] [address] Care Team Providers Care Legal Department Manager Name Role Phone Unknown, Provider Primary Care Provider Encounter Details Date Type Department Care Team (Late st Contact Info) Description 01/07/2010 Results Only [facility] - [facility] [address], [place] [address] Amrit Bah MD [address], [place] [id number] Social History Tobacco Use Types Packs/Day Years Used Date Smoking Tobacco: Never Assessed Sex and Gender Information Value Date Recorded Sex Assigned at Not on file Gender Identity Not on file Sexual Orientation Not on file documented as of this encounter Plan of Treatment Not on file documented as of this encounter Procedures Procedure Name Priority Date/Time Associated Diagnosis Comments SURGICAL PATHOLOGY Routine 01/07/2010 0:00 EST documented in this encounter Results * SURGICAL PATHOLOGY (01/07/2010 0:00 EST) Pathology Report: SURGICAL PATHOLOGY REPORT ? Reports generated via electronic interface contain original data; ? however they are lacking the format of the original report. ? Caution should be taken when reading/interpreti ng unformatted reports. ? Name: ? CHAR, LUIS ? Accession #: ? [id number] ? : ? 1960 (Age: 49) ??F ? Collect Date: ? 01/07/2010 ? Location: ? [facility] ? Receive Date: ? 01/08/2010 ? Provider: AMRIT WALKO MD ? Copy to: YAMILEX WANG PA ? Final Pathologic Diagnosis: ? A. ?Colon, cecum, polyp, biopsy: ? 1. ?Polypoid colonic mucosa with surface hyperplastic changes. ??See ? comment. ? B. ?Colon, proximal sigmoid, biopsy: ? 1. ?Hyperplastic polyp. ? C. ?Colon, rectosigmoid, polyp, biopsy: ? 1. ?Tubular adenoma. ? Comment: ? Deeper sections of specimen (A) have been examined; no adenomatous ? epithelium is identified. ??Mold Shop Supervisor sections were reviewed at ? intradepartmental consultation conference. ??(Dr. Beach)/ljn ? Document reviewed and electronically signed by: ? JENNIFER LAM MD ? Report ??Date: 01/13/2010 14:47 ? By the signature above, the attending physician certifies that he/she has ? personally conducted a gross and/or microscopic examination of the described ? specimens and rendered or confirmed the above diagnosis. ? Specimen(s) Received: ? A. ?Cecal polyp (#1) ? B. ? Bx sigmoid proximal (#2) ? C. ? Polyp rectosigmoid (#3) ? Clinical History: ? Screening; A. ? polyp ? Gross Description: ? Received in [facility]'s fixative labelled Luis Still and cecal polyp is a smith-pink 0.8 x 0.6 x 0.3 cm polypoid soft tissue. ??The specimen is inked, ?? trisected, and entirely submitted as (A). ? [facility] fix[facility] labelled Luis Still and bx proximal ? sigmoid is a smith-pink 0.3 x 0.2 x 0.2 cm soft tissue fragment. ??The specimen is entirely submitted as (B). ? Received in [facility]'s fixative labelled Still, Luis and polyp ? rectosigmoid is a smith-pink ovoid 1.0 x 0.5 x 0.3 cm polypoid soft tissue. ??The surgical margin is inked black. ??The specimen is serially sectioned and entirely submitted as (C). ??(Eugenio Pate)/marco ? End of Report ? [facility] 01/07/2010 01/08/2010 11: 14 EST Amrit Bah MD PATHOLOGY ORDERABLES [facility] [address] [place] [address] documented in this encounter Visit Diagnoses Not on filedocumented in this encounter Care Teams Legal Department Manager Relationship Specialty Start Date End Date Unknown, Provider, PCP - General 01/10/10 documented as of this encounter
--- OUTSIDE RECORDS SUMMARY | 2023-09-25 02:46 | XMS_ITS | Encounter Summary ---
Author Organization [facility] Address [address] [place] [address] Care Team Providers Care Senior Safety Support Manager Name Role Phone Unavailable Primary Care Provider Unavailabl e Encounter Details Date Type Department Care Team (Late st Contact Info) Description 03/23/2004 Results Only [facility] - Map conversion [address] [place] [address] Padmini Hernandez, [facility] [address] [place] [address] Social History Tobacco Use Types Packs/Day Years Used Date Smoking Tobacco: Never Assessed Sex and Gender Information Value Date Recorded Sex Assigned at Not on file Gender Identity Not on file Sexual Orientation Not on file documented as of this encounter Plan of Treatment Not on file documented as of this encounter Procedures Procedure Name Priority Date/Time Associated Diagnosis Comments CYTOPATHOLOGY Routine 03/23/2004 0:00 EST documented in this encounter Results * CYTOPATHOLOGY (03/23/2004 0:00 EST) Pathology Report: CYTOPATHOLOGY REPORT Reports generated via electronic interface contain original data; however they are lacking the format of the original report. Caution should be taken when reading/interpreti ng unformatted reports. Name: ? LUIS PARDO ? Accession #: ? [id number] : ? 1960 (Age: 43) ??F ?Collect Date: ? 03/23/2004 Location: ? [facility] ? Receive Date: ? 03/25/2004 Provider: ?PADMINI HERNANDEZ CAR REPOSSESSOR Copy to: ? Specimen/Source: ?ThinPrep Pap Test, Cervix/Endocervix Last Menstrual Period: ? 03/08/04 Previous Gynecologic Pathology: ? Benign cellular changes: & 05/27 Other: ? Additional clinical information: 07/28 pap negative, 09/15/02 endometrial cells present in a woman equal to or greater than age 40 HPVA - HPV testing requested if ASC-US on the current ThinPrep Pap test. ? SPECIMEN ADEQUACY ? Satisfactory for Evaluation - transformation zone component present GENERAL CATEGORIZATION ? Negative for Intraepithelial Lesion or Malignancy ? Document reviewed and electronically signed by: ? ELVIRA Merritt(ASCP) ? Report Date: ??03/30/2004 13:49 End of Report [facility] 03/23/2004 03/25/2004 Padmini Hernandez CAR REPOSSESSOR PATHOLOGY ORDERABLES Performing Organization Address City/State/[facility] Co de Phone Number [facility] [address] [place] [address] documented in this encounter Visit Diagnoses Not on filedocumented in this encounter
--- OUTSIDE RECORDS SUMMARY | 2023-09-25 02:46 | XMS_ITS | Encounter Summary ---
Author Organization [facility] Address [facility] [place] [address] Care Team Providers Care Polygraph Operator Name Role Phone Ra Marks MD Primary Care Provider Encounter Details Date Type Department Care Team (Late st Contact Info) Description 07/26/2011 Orders [place] [address] Rell Burrell MD [facility] [place] [address] Hypothyroid (Primary Dx) Social History Tobacco Use Types Packs/Day Years Used Date Smoking Tobacco: Never Assessed Sex and Gender Information Value Date Recorded Sex Assigned at Not on file Gender Identity Not on file Sexual Orientation Not on file documented as of this encounter Plan of Treatment Not on file documented as of this encounter Visit Diagnoses Diagnosis Hypothyroid- Primary Unspecified hypothyroidism documented in this encounter Care Teams Polygraph Operator Relationship Specialty Start Date End Date Ra Marks MD [address] [place] [address] PCP - General 01/18/10 02/14/12 documented as of this encounter
--- OUTSIDE RECORDS SUMMARY | 2023-09-25 02:46 | XMS_ITS | Encounter Summary ---
Author Organization [facility] [place] [address] Care Team Providers Care Fly Setter Name Role Phone Rell Brady MD Primary Care Provider [phone] Encounter Details Date Type Department Care Team (Late st Contact Info) Description 03/10/2017 Orders [place] [address] Rell Burrell MD [facility] [place] [place] [address] Hypothyroidism, unspecified type Social History Tobacco Use Types Packs/Day Years Used Date Smoking Tobacco: Never Smokeless Tobacco: Never Sex and Gender Information Value Date Recorded Sex Assigned at Not on file Gender Identity Not on file Sexual Orientation Not on file documented as of this encounter Plan of Treatment Not on file documented as of this encounter Results * T4, free (07/09/2017 8:22 AM EDT) Free T4 1.69 0.93 - 1.70 ng/dL [facility] Blood specimen (specimen) 07/09/2017 8:22 AM EDT 07/09/2017 8:40 AM EDT Narrative Resulting Agency Comment Spec In Lab Rell Burrell MD CHEMISTRY ORDERABLES [facility] [place] [address] * TSH (07/09/2017 8:22 AM EDT) TSH 0.30 0.27 - 4.20 mlU/ML [facility] Blood specimen (specimen) 07/09/2017 8:22 AM EDT 07/09/2017 8:40 AM EDT Narrative Resulting Agency Comment Spec In Lab Rell Burrell MD CHEMISTRY ORDERABLES [facility] [place] [address] documented in this encounter Visit Diagnoses Diagnosis Hypothyroidism, unspecified type documented in this encounter Care Teams Fly Setter Relationship Specialty Start Date End Date Rell Brady MD [address] [place] [address] PCP - General 02/15/12 documented as of this encounter
--- OUTSIDE RECORDS SUMMARY | 2023-09-25 02:46 | XMS_ITS | Encounter Summary ---
Author Organization [facility]ila [facility] [place] [address] Care Team Providers Care Joggle Press Operator Name Role Phone Rell Brady MD Primary Care Provider [phone] Encounter Details Date Type Department Care Team (Late st Contact Info) Description 02/13/2014 Orders Only [place] [address] Rell Burrell MD [facility] [address] Hypothyroidism Social History Tobacco Use Types Packs/Day Years Used Date Smoking Tobacco: Never Sex and Gender Information Value Date Recorded Sex Assigned at Not on file Gender Identity Not on file Sexual Orientation Not on file documented as of this encounter Plan of Treatment Not on file documented as of this encounter Results * T4, free (02/16/2014 8:33 AM EST) Free T4 1.40 0.93 - 1.70 ng/dL [facility] Blood specimen (specimen) 02/16/2014 8:33 AM EST 02/16/2014 8:40 AM EST Narrative Resulting Agency Comment Spec In Lab Rell Burrell MD CHEMISTRY ORDERABLES [facility] * TSH (02/16/2014 8:33 AM EST) Pathologist [facility] TSH 0.98 0.27 - 4.20 mcIU/mL [facility] Blood specimen (specimen) 02/16/2014 8:33 AM EST 02/16/2014 8:40 AM EST Narrative Resulting Agency Comment Spec In Lab Rell Burrell MD CHEMISTRY ORDERABLES [facility] documented in this encounter Visit Diagnoses Diagnosis Hypothyroidism Unspecified hypothyroidism documented in this encounter Care Teams Joggle Press Operator Relationship Specialty Start Date End Date Rlel Brady MD [address] [place] [address] PCP - General 02/15/12 documented as of this encounter
--- OUTSIDE RECORDS SUMMARY | 2023-09-25 02:46 | XMS_ITS | Encounter Summary ---
Author Organization [facility] Address [facility] [facility] [address] Care Team Providers Care Supervisor Ride Assembly Name Role Phone Rell Brady MD Primary Care Provider [phone] Reason for Visit * Reason Comments Medication Refill Encounter Details Date Type Department Care Team (Late st Contact Info) Description 03/19/2017 [place] [address] Rell Burrell MD [facility] [place] [address] Social History Tobacco Use Types Packs/Day Years [...] filedocumented in this encounter Care Teams Supervisor Ride Assembly Relationship Specialty Start Date End Date Rell Brady MD [address] [place] [address] PCP - General 02/15/12 documented as of this encounter
--- OUTSIDE RECORDS SUMMARY | 2023-09-25 02:46 | XMS_ITS | Encounter Summary ---
Author Organization [facility] Address [facility]ila [facility] [place] [address] Care Team Providers Care Nutritionist Name Role Phone Ra Marks MD Primary Care Provider [phone] Encounter Details Date Type Department Care Team (Late st Contact Info) Description 06/28/2010 Orders [place] [address] Rell Burrell MD [facility] [place] [address] Social History Tobacco Use Types Packs/Day Years Used Date Smoking Tobacco: Never Assessed Sex and Gender Information Value Date Recorded Sex Assigned at Not on file Gender Identity Not on file Sexual Orientation Not on file documented as of this encounter Plan of Treatment Not on file documented as of this encounter Visit Diagnoses Not on filedocumented in this encounter Care Teams Nutritionist Relationship Specialty Start Date End Date Ra Marks MD [address] [place] [address] PCP - General 01/18/10 02/14/12 documented as of this encounter
--- OUTSIDE RECORDS SUMMARY | 2023-09-25 02:46 | XMS_ITS | Encounter Summary ---
Author Organization [facility] Keila [facility] [place] [address] Care Team Providers Care Claim Taker Name Role Phone Rell Brady MD Primary Care Provider [phone] Reason for Visit * Reason Onset Date Comments Labs Only 12/21/2011 Encounter Details Date Type Department Care Team (Late st Contact Info) Description 12/21/2011 Telephone [place] [address] Rell Burrell MD [facility] [place] [address] Labs Only Social History Tobacco Use Types Packs/Day Years Used Date Smoking Tobacco: Never Assessed Sex and Gender Information Value Date Recorded Sex Assigned at Not on file Gender Identity Not on file Sexual Orientation Not on file documented as of this encounter Plan of Treatment Scheduled Orders Name Type Priority Associated Diagnoses Orde r Schedule TSH Lab Routine Hypothyroid Expected: 02/10/2012 (Approximate), Expi res: 03/27/2012 documented as of this encounter Results * T Uptake (02/15/2012 8:55 AM EST) T Uptake 1.04 0.80 - 1.30 ratio [facility] Comment: Tup assay is directly proportional to Thyroid binding protein concentration, thus FT4 Index = TT4/Tup. [place] Cord Blood Reference Range: ??0.74-1.28. Blood specimen (specimen) 02/15/2012 8:55 AM EST 02/15/2012 9:10 AM EST Narrative Resulting Agency Comment Spec In Lab Rell Burrell MD CHEMISTRY ORDERABLES Performing Organization Address City/[facility] Co de Phone Number [facility] * T4 (02/15/2012 8:55 AM EST) T4, total 7.4 5.1 - 10.8 mcg/dL [facility] Comment: Reference Range: Cord Blood: ??6.9-14.4 mcg/dL Females: ??7.2-14.2 mcg/dL Pediatric ranges: ??Interpret with caution-ranges have not been verified Blood specimen (specimen) 02/15/2012 8:55 AM EST 02/15/2012 9:10 AM EST Narrative Resulting Agency Comment Spec In Lab Rell Burrell MD CHEMISTRY ORDERABLES Performing Organization Address [facility] de Phone Number [facility] documented in this encounter Visit Diagnoses Diagnosis Hypothyroid- Primary Unspecified hypothyroidism documented in this encounter Care Teams Claim Taker Relationship Specialty Start Date End Date Rell Brady MD [address] [place] [address] PCP - General 02/15/12 documented as of this encounter
--- OUTSIDE RECORDS SUMMARY | 2023-09-25 02:46 | XMS_ITS | Encounter Summary ---
Author Organization [facility] Address [facility] [place] [address] Care Team Providers Care Transistor Tester Name Role Phone Ra Marks MD Primary Care Provider [phone] Encounter Details Date Type Department Care Team (Late st Contact Info) Description 02/24/2010 1:20 PM EST Office [place] [address] Rell Burrell MD [facility] [place] [place] [address] Discharge Disposition: Home Social History Tobacco Use [...] on filedocumented in this encounter Care Teams Transistor Tester Relationship Specialty Start Date End Date Ra Marks MD [address] [place] [address] PCP - General 01/18/10 02/14/12 documented as of this encounter
--- OUTSIDE RECORDS SUMMARY | 2023-09-25 02:46 | XMS_ITS | Encounter Summary ---
Author Organization [facility] Address [facility] [place] [address] Care Team Providers Care Account Executive Trainee Name Role Phone Rell Brady MD Primary Care Provider [phone] Reason for Visit * Reason Onset Date Comments Medication Refill 02/23/2017 Encounter Details Date Type Department Care Team (Late st Contact Info) Description 02/23/2017 Refill [place] [address] Rell Burrell MD [facility] [place] [address] Social History Tobacco Use Types Packs/Day Years [...] on filedocumented in this encounter Care Teams Account Executive Trainee Relationship Specialty Start Date End Date Rell Brady MD [address] [place] [address] PCP - General 02/15/12 documented as of this encounter
--- OUTSIDE RECORDS SUMMARY | 2023-09-25 02:46 | XMS_ITS | Encounter Summary ---
Author Organization [facility] Address [facility] [place] [address] Care Team Providers Care Railway Traction Line Worker Name Role Phone Ra Marks MD Primary Care Provider [phone] Reason for Visit * Reason Onset Date Comments Medication Refill 06/28/2010 I need my Levo thyroxine dosage switched back to 150 MCG please. Encounter Details Date Type Department Care Team (Late st Contact Info) Description 06/28/2010 Refill [place] [address] Rell Burrell MD [facility] [place] [address] Social History Tobacco Use Types Packs/Day Years Used Date Smoking Tobacco: Never Assessed Sex and Gender Information Value Date Recorded Sex Assigned at Not on file Gender Identity Not on file Sexual Orientation Not on file documented as of this encounter Plan of Treatment Not on file documented as of this encounter Visit Diagnoses Not on filedocumented in this encounter Care Teams Railway Traction Line Worker Relationship Specialty Start Date End Date Ra Marks MD [address] [place] [address] PCP - General 01/18/10 02/14/12 documented as of this encounter
--- OUTSIDE RECORDS SUMMARY | 2023-09-25 02:46 | XMS_ITS | Encounter Summary ---
Author Organization [facility] Address [address] [place] [address] Care Team Providers Care Insurance Territory Manager Name Role Phone Unknown, Provider Primary Care Provider [phone] Encounter Details Date Type Department Care Team (Late st Contact Info) Description 04/03/2023 Lab Requisition [facility] Pathology & Laboratory Medicine - [facility] [address], [place] [address] Outr Resulting Lab, Provider Social History Tobacco Use Types Packs/Day Years Used Date Smoking Tobacco: Never Assessed Sex and Gender Information Value Date Recorded Sex Assigned at Not on file Gender Identity Not on file Sexual Orientation Not on file documented as of this encounter Plan of Treatment Not on file documented as of this encounter Procedures Procedure Name Priority Date/Time Associated Diagnosis Comments HEPATITIS C AB W REFLEX TO HCV RNA BY PCR Routine 04/03/2023 8:45 EST documented in this encounter Results * HEPATITIS C AB W REFLEX TO HCV RNA BY PCR (04/03/2023 8:45 EST) Hep C Antibody Negative Negative 04/03/2023 21:44 EST [facility] Blood VENOUS BLOOD / Unknown 04/03/2023 8:45 EST 04/03/2023 17:58 EST Provider Outr Resulting Lab CHEMISTRY & BLOOD GAS ORDERABLES [facility] [address] [place] [address] documented in this encounter Visit Diagnoses Not on filedocumented in this encounter Care Teams Insurance Territory Manager Relationship Specialty Start Date End Date Unknown, ProviderMD PCP - General 01/10/10 documented as of this encounter
--- OUTSIDE RECORDS SUMMARY | 2023-09-25 02:46 | XMS_ITS | Encounter Summary ---
Author Organization [facility] Address [facility] [place] [address] Care Team Providers Care Entertainment & Media Correspondent Name Role Phone Rell Brady MD Primary Care Provider [phone] Reason for Visit * Reason Comments Medication Refill Encounter Details Date Type Department Care Team (Late st Contact Info) Description 12/08/2014 [place] [address] Rell Burrell MD [facility] [place] [address] Social History Tobacco Use Types Packs/Day Years [...] on filedocumented in this encounter Care Teams Entertainment & Media Correspondent Relationship Specialty Start Date End Date Rell Brady MD [address] [place] [address] PCP - General 02/15/12 documented as of this encounter
--- OUTSIDE RECORDS SUMMARY | 2023-09-25 02:46 | XMS_ITS | Encounter Summary ---
Author Organization [facility] Address [address] [place] [address] Care Team Providers Care Foreign Exchange Student Coordinator Name Role Phone Unavailable Primary Care Provider Unavailabl e Encounter Details Date Type Department Care Team (Late st Contact Info) Description 01/13/2008 Before PRISM Converted Visit (Maple) [facility] - [facility] conversion [address] [place] [address] Yaquelin Edwards, SAW FILER Social History Tobacco Use Types Packs/Day Years Used Date Smoking Tobacco: Never Assessed Sex and Gender Information Value Date Recorded Sex Assigned at Not on file Gender Identity Not on file Sexual Orientation Not on file documented as of this encounter Plan of Treatment Not on file documented as of this encounter Procedures Procedure Name Priority Date/Time Associated Diagnosis Comments CYTOPATHOLOGY Routine 01/13/2008 0:00 EST documented in this encounter Results * CYTOPATHOLOGY (01/13/2008 0:00 EST) Pathology Report: CYTOPATHOLOGY REPORT ? Reports generated via electronic interface contain original data; ? however they are lacking the format of the original report. ? Caution should be taken when reading/interpreti ng unformatted reports. ? Name: ? PARDOLUIS QUEZADA ? Accession #: ? [id number] ? : ? 1960 (Age: 47) ??F ?Collect Date: ? 01/13/2008 ? Location: ? [facility] ? Receive Date: ? 01/14/2008 ? Provider: ?YAQUELIN M KAHLIL SAW FILER ? Copy to: ? Specimen/Source: ?Pap Test, Cervix/Endocervix, ThinPrep Imaging System ? with manual evaluation ? Last Menstrual Period: ? 10/23/08 ? Previous Gynecologic Pathology: ? Benign cellular changes: 10/99 & 04/01 ? SPECIMEN ADEQUACY ? Satisfactory for Evaluation ? - transformation zone component present ? GENERAL CATEGORIZATION ? Negative for Intraepithelial Lesion or Malignancy ? Document reviewed and electronically signed by: ? Shaneka Thomas, SCT(ASCP) ? Report Date: ??01/16/2008 11:02 ? End of Report ? [facility] 01/13/2008 01/14/2008 Yaquelin Edwards NP PATHOLOGY ORDERABLES Performing Organization Address City/State/[facility] Co de Phone Number [facility] [address] [place] [address] documented in this encounter Visit Diagnoses Not on filedocumented in this encounter
--- OUTSIDE RECORDS SUMMARY | 2023-09-25 02:46 | XMS_ITS | Encounter Summary ---
Author Organization [facility] Address [address] [place] [address] Care Team Providers Care [place] Attendant Name Role Phone Unknown, Provider Primary Care Provider Encounter Details Date Type Department Care Team (Late st Contact Info) Description 03/26/2013 Results Only [facility] Laboratory Services - [facility] [address] [place], [place] [address] Amrit Bah MD [address] [place] [address] Social History Tobacco Use Types Packs/Day Years Used Date Smoking Tobacco: Never Assessed Sex and Gender Information Value Date Recorded Sex Assigned at Not on file Gender Identity Not on file Sexual Orientation Not on file documented as of this encounter Plan of Treatment Not on file documented as of this encounter Procedures Procedure Name Priority Date/Time Associated Diagnosis Comments SURGICAL PATHOLOGY Routine 03/26/2013 10 :12 EST documented in this encounter Results * SURGICAL PATHOLOGY (03/26/2013 10:12 EST) Pathology Report: SURGICAL PATHOLOGY REPORT Reports generated via electronic interface contain original data; however they are lacking the format of the original report. Caution should be taken when reading/interpreti ng unformatted reports. Name: ? LUIS PARDO ? Accession #: ? [id number] ? : ? 1960 (Age: 52) ??F ? Collect Date: ? 03/26/2013 ? Location: ? [facility] ? Receive Date: ? 03/27/2013 ? Provider: AMRIT BAH MD Copy to: JUAN J HENDERSON MD ? Final Pathologic Diagnosis: A. COLON, CECUM, POLYP, BIOPSY: - ??Tubular adenoma (1 piece); no high grade dysplasia. B. COLON, ASCENDING, POLYP, BIOPSY: - ??Tubular adenoma (1 piece); no high grade dysplasia. - ??Colonic mucosa (1 piece) with no specific histopathologic diagnosis. C. COLON, TRANSVERSE, POLYP, BIOPSY: - ??Tubular adenoma (1 piece); no high grade dysplasia. D. COLON, RECTOSIGMOID, POLYP, BIOPSY: - ??Hyperplastic polyp (1 piece); no adenoma. Document reviewed and electronically signed by: Jesus Alberto Chambers MD Report ??Date: 03/28/2013 15:35 By the signature above, the attending physician certifies that he/she has personally conducted a gross and/or microscopic examination of the described specimens and rendered or confirmed the above diagnosis. Specimen(s) Received: A. ??Cecal polyp (#1) B. ??Ascending colon polyp (#2) C. ??Transverse colon polyp (#3) D. ??Rectosigmoid polyp (#4) Clinical History: H/O TA Gross Description: A. ?Received in formalin labelled with proper patient identification (initials W, J) and cecal polyp is a single pink-smith tissue fragment (0.9 x 0.2 0.1 cm). Submitted intact in A1. B. ?Received in formalin labelled with proper patient identification (initials W, J) and ascending colon polyp is a single pink-smith tissue fragment (0.4 x 0.2 x 0.2 cm). Submitted intact in B1. C. ?Received in formalin labelled with proper patient identification (initials W, J) and transverse colon polyp is a single pink-smith tissue fragment (0.2 x 0.2 x 0.1 cm). Submitted intact in C1. D. ?Received in formalin labelled with proper patient identification (initials W, J) and rectosigmoid polyp is a single pink-smith tissue fragment (0.4 x 0.3 x 0.2 cm). Submitted intact in D1. Juliet Plasencia 03/27/2013 11:42 AM End of Report [facility] 03/26/2013 10:1 2 EST 03/27/2013 10:12 EST Amrit Bah MD PATHOLOGY ORDERABLES [facility] [address] [place] [address] documented in this encounter Visit Diagnoses Not on filedocumented in this encounter Care Teams [place] Attendant Relationship Specialty Start Date End Date Unknown, Provider, PCP - General 01/10/10 documented as of this encounter
--- OUTSIDE RECORDS SUMMARY | 2023-09-25 02:46 | XMS_ITS | Encounter Summary ---
Author Organization [facility] Address [address] [place] [address] Care Team Providers Care Parts Lister Name Role Phone Unavailable Primary Care Provider Unavailabl e Encounter Details Date Type Department Care Team (Late st Contact Info) Description 08/02/2005 Results Only [facility] conversion [address] [place] [address] Yaquelin Edwards, SELENE Social History Tobacco Use [...] Priority Date/Time Associated Diagnosis Comments CYTOPATHOLOGY Routine 08/02/2005 0:00 EDT documented in this encounter Results * CYTOPATHOLOGY (08/02/2005 0:00 EDT) Pathology Report: CYTOPATHOLOGY REPORT Reports generated via electronic interface contain original data; however they are lacking the format of the original report. Caution should be taken when reading/interpreti ng unformatted reports. Name: ? LUIS PARDO ? Accession #: ? [id number] : ? 1960 (Age: 44) ??F ?Collect Date: ? 08/02/2005 Location: ? [facility] ? Receive Date: ? 08/03/2005 Provider: ?YAQUELIN EDWARDS FAMILY SUPPORT WORKER Copy to: ? Specimen/Source: ?ThinPrep Pap Test, Cervix/Endocervix, processed on [employer] ThinPrep Imaging System, with manual evaluation Last Menstrual Period: ? 07/18/05 Previous Gynecologic Pathology: ? Benign cellular changes: & 05/27 Other: ? HPVA - HPV testing requested if ASC-US on the current ThinPrep Pap test. ? SPECIMEN ADEQUACY ? Satisfactory for Evaluation - transformation zone component present GENERAL CATEGORIZATION ? Negative for Intraepithelial Lesion or Malignancy ? Document reviewed and electronically signed by: ? GO Foster(ASCP) ? Report Date: ??08/04/2005 13:14 End of Report [facility] 08/02/2005 08/03/2005 Yaquelin Edwards NP PATHOLOGY ORDERABLES [facility] [address] [place] [address] documented in this encounter Visit Diagnoses Not on filedocumented in this encounter
--- OUTSIDE RECORDS SUMMARY | 2023-09-25 02:46 | XMS_ITS | Encounter Summary ---
Author Organization [facility] Address [address] [place] [address] Care Team Providers Care Wildlife Officer Name Role Phone Unavailable Primary Care Provider Unavailabl e Encounter Details Date Type Department Care Team (Late st Contact Info) Description 05/26/1999 Results Only [facility] conversion [address] [place] [address] Yaquelin Edwards, SELENE Social History Tobacco Use [...] Priority Date/Time Associated Diagnosis Comments CYTOPATHOLOGY Routine 05/26/1999 13:31 EST documented in this encounter Results * CYTOPATHOLOGY (05/26/1999 13:31 EST) Pathology Report: CYTOPATHOLOGY REPORT Reports generated via electronic interface contain original data; however they are lacking the format of the original report. Caution should be taken when reading/interpreti ng unformatted reports. Name: ? LUIS PARDO ? Accession #: ? [id number] : ? 1960 (Age: 38) ??F ?Collect Date: ? 05/26/1999 Location: ?Receive Date: ? 05/26/1999 Provider: ?YAQUELIN EDWARDS IRON ASSORTER Copy to: ?YAQUELIN EDWARDS NP ? Specimen/Source: ?[employer] ThinPrep Last Menstrual Period: ? GYNECOLOGIC ??CYTOPATHOLOGY ??REPORT Name: LUIS MAIER ?[facility] : 1960 ?? 38Y F ?Client ID: [id number] SS#: ? Clinician: KAHLIL MORTON, PASQUALE ?? Location: [facility] ??Copy to: ?? Specimen: ?[employer] ThinPrep ? Source: Cervix/Endocervix ?Collected: 05/25/99 ? Received: 05/26/1999 ?LMP: 05/18/99 ? Hormone Therapy: No ? : No ? Radiation Therapy: No ?? Post : No ?Chemotherapy: No ?IUD: No ? Prev Abnormal Pap: Yes ?? 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 ?(Blank lynn indicate information not provided on requisition) SPECIMEN ADEQUACY: ? Satisfactory For Evaluation ?? GENERAL CATEGORIZATION: ? WITHIN NORMAL LIMITS ? Reviewed And Electronically Signed By: ? Shaneka Thomas, CT(ASCP) ? Report Date: ?? 06/01/1999 [employer] Archived Tests - Final Diagnosis Text Field: Clinical History : ; Benign cellular changes, parakeratosis, surface reaction predominance of coccobacilli. ? Document reviewed and electronically signed by: ? Conversion ? Report Date: ??06/01/1999 00:00 End of Report [facility] 05/26/1999 13:3 1 EST 05/26/1999 13:32 EST Yaquelin Edwards IRON ASSORTER PATHOLOGY ORDERABLES [facility] [address] [place] [address] documented in this encounter Visit Diagnoses Not on filedocumented in this encounter
--- OUTSIDE RECORDS SUMMARY | 2023-09-25 02:46 | XMS_ITS | Encounter Summary ---
Author Organization [facility] Address [facility] [place] [address] Care Team Providers Care Burn Crew Member Name Role Phone Rell Brady MD Primary Care Provider Reason for Visit * Reason Comments Hypothyroidism Encounter Details Date Type Department Care Team (Late st Contact Info) Description 03/18/2015 8:40 AM EST Office [place] [address] Rell Burrell MD [facility] [place] [address] Hypothyroidism, unspecified type Social History Tobacco Use Types Packs/Day Years Used Date Smoking Tobacco: Never Smokeless Tobacco: Never Sex and Gender Information Value Date Recorded Sex Assigned at Not on file Gender Identity Not on file Sexual Orientation Not on file documented as of this encounter Last Filed Vital Signs Vital Sign Reading Time Taken Comments Blood Pressure 135/89 03/18/2015 8:10 AM EST Pulse 74 03/18/2015 8:10 AM EST Temperature - - Respiratory Rate - - Oxygen Saturation - - Inhaled Oxygen Concentration - - Weight 89.4 kg (197 lb) 03/18/2015 8:10 AM EST Height 174.6 cm (5' 8.75) 03/18/2015 8:10 AM ES T Body Mass Index 29.3 03/18/2015 8:10 AM EST documented in this encounter Progress Notes * Rell Burrell MD - 03/18/2015 8:48 AM EST Subjective: Patient ID: Luis Still is a 54 y.o. 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 Has not noted any changes in size; no problems swallowing. Only concern is trouble lowering weight. HPI Review of Systems Objective: Physical Exam Constitutional: She is oriented to person, place, and time. She appears well- developed and well-nourished. Neck: Thyromegaly present. Visible midline nodule ~2.5 cm., non-tender. Lymphadenopathy: She has no cervical adenopathy. Neurological: She is alert and oriented to person, place, and time. Psychiatric: She has a normal mood and affect. Her behavior is normal. Thought content normal. BP 135/89 mmHg Pulse 74 Ht 174.6 cm (5' 8.75) Wt 89.359 kg (197 lb) BMI 29.31 kg/m2 Assessment and Plan: Recent Results (from the past 24 hour(s)) TSH Result Value Ref Range TSH 0.35 0.27 - 4.20 mcIU/mL T4, free Result Value Ref Range Free T4 1.80 (H) 0.93 - 1.70 ng/dL Lipid panel (fasting) Result Value Ref Range Chol, Total 213 (H) <=199 mg/dL Triglycerides 146 <=149 mg/dL HDL 36 (L) >=40 mg/dL LDL Cholesterol 148 (H) <=99 mg/dL Chol/HDL Ratio 5.9 ratio Tfts in normal range, Lipid profile requested by Dr. Brady and will send him results. Will have Luis return in one year for one last neck ultasound, if MNG stable will have her f/u withdr. Brady. Today's measurement of mid-line nodule indicates no growth since last year. >20 of 25 minute appt spent discussing future follow-up and also that her thyroid does NOT seem to be a cause of her frustration losing weight. documented in this encounter Plan of Treatment Not on file documented as of this encounter Visit Diagnoses Diagnosis Hypothyroidism, unspecified type documented in this encounter Care Teams Burn Crew Member Relationship Specialty Start Date End Date Rell Brady MD [address] [place] [address], [place] [address] PCP - General 02/15/12 documented as of this encounter
--- OUTSIDE RECORDS SUMMARY | 2023-09-25 02:46 | XMS_ITS | Encounter Summary ---
Author Organization [facility] Address [facility] [place] [address] Care Team Providers Care Rouge Mixer Name Role Phone Rell Brady MD Primary Care Provider [phone] Encounter Details Date Type Department Care Team ([facility] st Contact Info) Description 11/30/2005 Orders [place] [address] Dong Cavazos MD [address] [place] [address] Social History Tobacco Use Types Packs/Day Years Used Date Smoking Tobacco: Never Assessed Sex and Gender Information Value Date Recorded Sex Assigned at Not on file Gender Identity Not on file Sexual Orientation Not on file documented as of this encounter Plan of Treatment Not on file documented as of this encounter Procedures Procedure Name Priority Date/Time Associated Diagnosis Comments NON-PERSONNEL MANAGER FINAL REPORT Routine 11/30/2005 5:15 PM EDT documented in this encounter Results * Non-Press Leader Final Report (11/30/2005 5:15 PM EDT) Non-Press Leader Final Report [id number] ? Location: The signing pathologist has (i) examined the relevant preparation(s) for the specimen(s) and (ii) rendered or confirmed the diagnosis(es). . ? Pathology Non-Press Leader Cytology Final Report Clinical Information Specimen Source: ?Thyroid/FNA: right Clinical History/Impression: ?? Right thyroid nodule. R/o malignancy. Gross Description: ?Rec'd in Cytorich red, ??approx. 10 ml. total volume of ??clear, pink fluid. Total Prep - LBP 1; Diff Quik 3; Pap Stain 3; Cell Block 1. Interpretation Specimen submitted is less than optimal. ??See Comment. Diagnosis See Comment 12/07/05 ?Screened by: ? EAM ?Rescreened by: ?? EJG,EJG 12/07/05 ?Verified by: ? Mango Banuelos MD ? Pathologist ? (Electronic Signature) Comment Less than optimal due to obscuring blood and focal air-drying artifacts. The sample contains numerous (predominantly small) lymphocytes and a few clusters of follicular epithelial cells (some of which have ample cytoplasm, suggestive of oncocytic change). Suspect lymphocytic thyroiditis. Recommend clinicopathologic correlation. CHON JACINTO 11/30/2005 5:15 PM EDT Dong Cavazos MD PATHOLOGY/CYTOLOGY O RDERABLES CHON JACINTO documented in this encounter Visit Diagnoses Not on filedocumented in this encounter Care Teams Rouge Mixer Relationship Specialty Start Date End Date Rell Brady MD [address] [place] [address] PCP - General 02/15/12 documented as of this encounter
--- OUTSIDE RECORDS SUMMARY | 2023-09-25 02:46 | XMS_ITS | Encounter Summary ---
Author Organization [facility] Address [facility] [place] [address] Care Team Providers Care Director Talent Name Role Phone Rell Brady MD Primary Care Provider [phone] Reason for Visit * Reason Comments Medication Refill Encounter Details Date Type Department Care Team (Late st Contact Info) Description 09/08/2016 Ref[place] [address] Rell Burrell MD [facility] [place] [address] Social History Tobacco Use Types Packs/Day Years [...] on filedocumented in this encounter Care Teams Director Talent Relationship Specialty Start Date End Date Rell Brady MD [address] [place] [address] PCP - General 02/15/12 documented as of this encounter
--- OUTSIDE RECORDS SUMMARY | 2023-09-25 02:46 | XMS_ITS | Encounter Summary ---
Author Organization Formerly [facility] Address [facility] [place] [address] Care Team Providers Care Recovery Assistant Name Role Phone Rell Brady MD Primary Care Provider [phone] Reason for Visit * Reason Comments Hypothyroidism Encounter Details Date Type Department Care Team (Latest Contact Info) Description 02/16/2014 8:40 AM EST Office [place] [address] Rell Burrell MD [facility] [place] [address] Hypothyroidism Discharge Disposition: Home Social History Tobacco Use Types Packs/Day Years Used Date Smoking Tobacco: Never Smokeless Tobacco: Never Sex and Gender Information Value Date Recorded Sex Assigned at Not on file Gender Identity Not on file Sexual Orientation Not on file documented as of this encounter Last Filed Vital Signs Vital Sign Reading Time Taken Comments Blood Pressure 137/81 02/16/2014 9:47 AM EST Pulse 73 02/16/2014 9:47 AM EST Temperature - - Respiratory Rate - - Oxygen Saturation - - Inhaled Oxygen Concentration - - Weight 90.3 kg (199 lb) 02/16/2014 9:47 AM EST Height 174.6 cm (5' 8.75) 02/16/2014 9:47 AM ES T stated Body Mass Index 29.6 02/16/2014 9:47 AM EST documented in this encounter Progress Notes * Major Reaves - 02/16/2014 10:20 AM EST THYROID ULTRASOUND (no charge): Indication: Thyroid nodule on prior study; Considering FNA - clarify size, position and US characteristics Real time images of the thyroid gland were obtained. All measurements are given as Longitudinal x Anterior-Posterior (A-P) x Transverse Right Lobe: There is an iso-echoic nodule which measures: 2 x 1.5 x 1.8 cm Left Lobe: There appears to be a <1cm nodule in the center of the left lobe, possibly a pseudonodule Isthmus : there is a large isoechoic nodule with well-defined borders measuring 3 x 1.5 x 3 cm No anterior cervical lymphadenopathy identified. IMPRESSION: - Small interval increase in size, without high risk features. 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 female who is a patient who comes in for a two-year followup concerning her multinodular thyroid. She has had biopsies in the past of three nodules all of which showed lymphocytic inflammation and no evidence of worrisome cytology. She is on 150 mcg a day of levothyroxine (erroneously, her note from two years ago said she had been on 300 mcg a day, but I believe she has always been on approximately 150 mcg per day). She is feeling well. Said, she does snore and very rarely has some trouble swallowing, but in general does not seem to be too aware of her thyroid nodules. She has gained some weight as she has been going through menopause and is now on a low dose of estradiol. She does have a daughter who I see who has Mel thyroiditis. Luis does not seem too concerned about her thyroid status, more concerned about her weight gain. . HPI Review of Systems Objective: Physical Exam Constitutional: She is oriented to person, place, and time. She appears well- developed and well-nourished. Neck: Thyromegaly present. 3 cm firm nodule over isthmus (also see report by who identified nodule in right lobe (>1cm) and possible nodule vs. Pseudo nodule in left lobe); no abnormal lymph nodes. Neurological: She is alert and oriented to person, place, and time. Psychiatric: She has a normal mood and affect. Her behavior is normal. Thought content normal. BP 137/81 Pulse 73 Ht 174.6 cm (5' 8.75) Wt 90.266 kg (199 lb) BMI 29.61 kg/m2 Assessment and Plan: Recent Results (from the past 24 hour(s)) TSH Result Value Range TSH 0.98 0.27 - 4.20 mcIU/mL T4, FREE Result Value Range Free T4 1.40 0.93 - 1.70 ng/dL Ultrasound done today by Dr. Reaves showed a very slight increase in her large isthmus nodule since it was done four years ago. He also recognized what he thought was a definite nodule that was between 1 to 1.5 cm in the right lobe. Left lobe, he saw as possible nodule or a pseudonodule. Overall, I do not think there has been any significant change in her ultrasound (2005, the nodules in the right and left lobes were biopsied, although there was no definite documentation of these nodules in Dr. Cavazos's note). In addition to that, there were no worrisome features of any of the nodules on today's ultrasound. Will suggest that Luis stay on her same dose of levothyroxine. I will make an appointment to see her in a year instead of two years just to be sure that there is not any further growth, especially in the right lobe nodule. Greater than 20 of the 40-minute appointment was spent in [id number] discussion concerning the results of today's ultrasound and discussion concerning followup. I did say to Luis that I did not think her thyroid was playing any role in her weight gain. We talked about continuing Estradiol, which I told her I thought was safe as she was in her 50s (no high risk for breast cancer runs in her family and she has had no history of phlebitis). documented in this encounter Plan of Treatment Not on file documented as of this encounter Procedures Procedure Name Priority Date/Time Associated Diagnosis Comments TSH Routine 02/16/2014 8:33 AM EST Hypothyroidism T4, FREE STAT 02/16/2014 8:33 AM EST Hypothyroidism documented in this encounter Results * T4, free (02/16/2014 8:33 AM EST) Free T4 1.40 0.93 - 1.70 ng/dL CERNER MILLENNIUM Blood specimen (specimen) 02/16/2014 8:33 AM EST 02/16/2014 8:40 AM EST Narrative Resulting Agency Comment Spec In Lab Rell Burrell MD CHEMISTRY ORDERABLES Performing Organization Address [facility] Co de Phone Number [facility] * TSH (02/16/2014 8:33 AM EST) TSH 0.98 0.27 - 4.20 mcIU/mL CERNER MILLENNIUM Blood specimen (specimen) 02/16/2014 8:33 AM EST 02/16/2014 8:40 AM EST Narrative Resulting Agency Comment Spec In Lab Rell Burrell MD CHEMISTRY ORDERABLES Performing Organization Address City/[facility] Co de Phone Number [facility] documented in this encounter Visit Diagnoses Diagnosis Hypothyroidism Unspecified hypothyroidism documented in this encounter Care Teams Recovery Assistant Relationship Specialty Start Date End Date Rell Brady MD [address] [place] [address] PCP - General 02/15/12 documented as of this encounter
--- OUTSIDE RECORDS SUMMARY | 2023-09-25 02:46 | XMS_ITS | Encounter Summary ---
Author Organization [facility] Address [facility] [place] [address] Care Team Providers Care Container Coordinator Name Role Phone Rell Brady MD Primary Care Provider [phone] Encounter Details Date Type Department Care Team ([facility] st Contact Info) Description 11/30/2005 Orders [place] [address] Dong Cavazos MD [address] [place] [id number] Social History Tobacco Use Types Packs/Day Years Used Date Smoking Tobacco: Never Assessed Sex and Gender Information Value Date Recorded Sex Assigned at Not on file Gender Identity Not on file Sexual Orientation Not on file documented as of this encounter Plan of Treatment Not on file documented as of this encounter Procedures Procedure Name Priority Date/Time Associated Diagnosis Comments NON-BMET FINAL REPORT Routine 11/30/2005 5:19 PM EDT documented in this encounter Results * Non-Photography Teacher Final Report (11/30/2005 5:19 PM EDT) Non-Photography Teacher Final Report [id number] ? Location: The signing pathologist has (i) examined the relevant preparation(s) for the specimen(s) and (ii) rendered or confirmed the diagnosis(es). . ? Pathology Non-Photography Teacher Cytology Final Report Clinical Information Specimen Source: ?Thyroid/FNA: left Clinical History/Impression: ?Left thyroid nodule. R/o malignancy. Gross Description: ?Rec'd in Cytorich red, ??approx. 10 ml. total volume of ??clear, pink fluid, with dark flecks. Total Prep - LBP 1; Diff Quik 3; Pap Stain 3. Interpretation Specimen submitted is satisfactory. Diagnosis See Comment 12/07/05 ?Screened by: ? EAM ?Rescreened by: ?? EJG 12/07/05 ?Verified by: ? Mango Banuelos MD ? Pathologist ? (Electronic Signature) Comment Numerous lymphocytes and a few clusters of follicular epithelial cells (some with possible oncocytic change) are present. Suggestive of lymphocytic thyroiditis. Recommend clinicopathologic correlation. CHON JACINTO 11/30/2005 5:19 PM EDT Dong Cavazos MD PATHOLOGY/CYTOLOGY O RDERABLES Performing Organization Address City/State/[facility] Co de Phone Number CHON JACINTO documented in this encounter Visit Diagnoses Not on filedocumented in this encounter Care Teams Container Coordinator Relationship Specialty Start Date End Date Rell Brady MD [address] [place] [address] PCP - General 02/15/12 documented as of this encounter
--- OUTSIDE RECORDS SUMMARY | 2023-09-25 02:46 | XMS_ITS | Encounter Summary ---
Author Organization [facility] Address [facility] [place] [address] Care Team Providers Care Performance Improvement Director Name Role Phone Rell Brady MD Primary Care Provider Encounter Details Date Type Department Care Team ([facility] st Contact Info) Description 11/30/2005 Orders [place] [address] Dnog Cavazos MD [address] [place] [phone] Social History Tobacco Use Types Packs/Day Years Used Date Smoking Tobacco: Never Assessed Sex and Gender Information Value Date Recorded Sex Assigned at Not on file Gender Identity Not on file Sexual Orientation Not on file documented as of this encounter Plan of Treatment Not on file documented as of this encounter Procedures Procedure Name Priority Date/Time Associated Diagnosis Comments NON-HUMAN RESOURCES SPECIALIST FINAL REPORT Routine 11/30/2005 5:33 PM EDT documented in this encounter Results * Non-[place] Final Report (11/30/2005 5:33 PM EDT) Non-[place]hop Final Report [id number] ? Location: The signing pathologist has (i) examined the relevant preparation(s) for the specimen(s) and (ii) rendered or confirmed the diagnosis(es). . ? Pathology Non-Bellhop Cytology Final Report Clinical Information Specimen Source: ?Thyroid/FNA Clinical History/Impress ion: ?? Isthmus nodule. R/o malignancy. Gross Description: ?Total Prep - ??Diff Quik 3; Pap Stain 3. Interpretation Specimen submitted is satisfactory. Diagnosis See Comment 12/06/05 ?Screened by: ? EAM ?Rescreened by: ?? EJG,EJG 12/06/05 ?Verified by: ? Mango Banuelos MD ? Pathologist ? (Electronic Signature) Comment Predominantly lymphocytes and hemosiderin-lad en histiocytes. ??Rare follicular epithelial cells present; unequivocal oncocytes not noted. ? lymphocytic thyroiditis; suggest clinical correlation. CHON JACINTO 11/30/2005 5:33 PM EDT Dong Cavazos MD PATHOLOGY/CYTOLOGY O RDERABLES CHON JACINTO documented in this encounter Visit Diagnoses Not on filedocumented in this encounter Care Teams Performance Improvement Director Relationship Specialty Start Date End Date Rell Brady MD [address] [place] [address] PCP - General 02/15/12 documented as of this encounter
--- OUTSIDE RECORDS SUMMARY | 2023-09-25 02:46 | XMS_ITS | Referral Summary ---
Author Organization [facility] Address [address] [place] [address] Care Team Providers Care Web Services Manager Name Role Phone Unknown, Provider Primary Care Provider [phone] Social History Tobacco Use Types Packs/Day Years Used Date Smoking Tobacco: Never Assessed Sex and Gender Information Value Date Recorded Sex Assigned at Not on file Gender Identity Not on file Sexual Orientation Not on file Plan of Treatment Not on file Procedures Procedure Name Priority Date/Time Associated Diagnosis Comments HEPATITIS C AB W REFLEX TO HCV RNA BY PCR Routine 04/03/2023 8:45 EST from Last 3 Months or Most Recently Relevant to Health Maintenance Results * HEPATITIS C AB W REFLEX TO HCV RNA BY PCR (04/03/2023 8:45 EST) Hep C Antibody Negative Negative 04/03/2023 21:44 EST [facility] Blood VENOUS BLOOD / Unknown 04/03/2023 8:45 EST 04/03/2023 17:58 EST Provider Outr Resulting Lab CHEMISTRY & BLOOD GAS ORDERABLES [facility] [address] [place] [address] from Last 3 Months or Most Recently Relevant to Health Maintenance Care Teams Web Services Manager Relationship Specialty Start Date End Date Unknown, Provider, PCP - General 01/10/10
--- OUTSIDE RECORDS SUMMARY | 2023-09-25 02:46 | XMS_ITS | Encounter Summary ---
[place] [address] Care Team Providers Care Gift Consultant Name Role Phone Rell Brady MD Primary Care Provider [phone] Encounter Details Date Type Department Care Team (Latest Contact Info) Description 03/18/2015 7:40 AM EST [place] [address] Goiter; Acquired hypothyroidism Social History Tobacco Use Types Packs/Day Years Used Date Smoking Tobacco: Never Smokeless Tobacco: Never Sex and Gender Information Value Date Recorded Sex Assigned at Not on file Gender Identity Not on file Sexual Orientation Not on file documented as of this encounter Plan of Treatment Not on file documented as of this encounter Procedures Procedure Name Priority Date/Time Associated Diagnosis Comments TSH STAT 03/18/2015 7:46 AM EST Goiter T4, FREE STAT 03/18/2015 7:46 AM EST Goiter LIPID PANEL (REFLEX DIRECT LDL) Routine 03/18/2015 7:46 AM EST Acquired hypothyroidism documented in this encounter Results * (ABNORMAL) Lipid panel (fasting) (03/18/2015 7:46 AM EST) Chol, Total 213(H) <=199 mg/dL [facility] Comment: Recommendations of the NCEP Adult Treatment Panel for the following risk cutoff thresholds for the [place] population: Desirable: <200 mg/dL Borderline High: 200-239 mg/dL High: > or = 240 mg/dL Triglycerides 146 <=149 mg/dL [facility] Comment: Reference Range: Normal triglycerides: ??<150 mg/dL Borderline high: ??150-199 mg/dL High: ??200-499 mg/dL Very high: ??>mc=332 mg/dL JENNA 2001; 285(19):7722-5385 HDL 36(L) >=40 mg/dL [facility] Comment: Reference range: ??Low HDL: ?? < 40 mg/dL ??Normal: ?40-60 mg/dL ??Desirable: > 60 mg/dL JENNA 2001; 285(19):4709-2454 LDL Cholesterol 148(H) <=99 mg/dL [facility] Comment: Reference range: ?? Optimal: ?<100 mg/dL ?? Near Optimal/Above Optimal: ?? 100-129 mg/dL ?? Borderline high: ?130-159 mg/dL ?? High: ? 160-189 mg/dL ?? Very high: ?>ws=705 mg/dL JENNA 2001: 285(19):4842-1398 Chol/HDL Ratio 5.9 ratio ALEIDA JACINTO Comment: A Cholesterol to HDL ratio below 4:1 is desirable. ??Studies suggest that increased CAD risk occurs at ratios above 5 for females and above 6 for men. ? [place] Heart Association ??(http://www.americanheart.org) ? Nicolasa Int Med, 1994; 121:641 ? AM J Med, 1998; 105(1A):48S Blood specimen (specimen) 03/18/2015 7:46 AM EST 03/18/2015 8:05 AM EST Narrative Resulting Agency Comment Spec In Lab Rell Burrell MD CHEMISTRY ORDERABLES [facility] * (ABNORMAL) T4, free (03/18/2015 7:46 AM EST) Free T4 1.80(H) 0.93 - 1.70 ng/dL [facility] Blood specimen (specimen) 03/18/2015 7:46 AM EST 03/18/2015 8:05 AM EST Narrative Resulting Agency Comment Spec In Lab Rell Burrell MD CHEMISTRY ORDERABLES Performing Organization Address [facility] de Phone Number [facility] * TSH (03/18/2015 7:46 AM EST) TSH 0.35 0.27 - 4.20 mcIU/mL [facility] Blood specimen (specimen) 03/18/2015 7:46 AM EST 03/18/2015 8:05 AM EST Narrative Resulting Agency Comment Spec In Lab Rell Burrell MD CHEMISTRY ORDERABLES Performing Organization Address [facility] de Phone Number [facility] documented in this encounter Visit Diagnoses Diagnosis Goiter Goiter, unspecified Acquired hypothyroidism Unspecified hypothyroidism documented in this encounter Care Teams Gift Consultant Relationship Specialty Start Date End Date Rell Brady MD [address] [place] [address] PCP - General 02/15/12 documented as of this encounter
--- OUTSIDE RECORDS SUMMARY | 2023-09-25 02:46 | XMS_ITS | Encounter Summary ---
Author Organization [facility] Address [address] [place] [address] Care Team Providers Care Stock And Station Agent Name Role Phone Unavailable Primary Care Provider Unavailabl e Encounter Details Date Type Department Care Team (Late st Contact Info) Description 06/04/2000 Results Only [facility] conversion [address] [place] [address] Yaquelin Edwards, SELENE Social History Tobacco Use [...] Priority Date/Time Associated Diagnosis Comments CYTOPATHOLOGY Routine 06/04/2000 0:00 EDT documented in this encounter Results * CYTOPATHOLOGY (06/04/2000 0:00 EDT) Pathology Report: CYTOPATHOLOGY REPORT Reports generated via electronic interface contain original data; however they are lacking the format of the original report. Caution should be taken when reading/interpreti ng unformatted reports. Name: ? LUIS PARDO ? Accession #: ? [id number] : ? 1960 (Age: 39) ??F ?Collect Date: ? 06/04/2000 Location: ? [facility] ? Receive Date: ? 06/05/2000 Provider: ?YAQUELIN EDWARDS WATERSHED ENGINEER Copy to: ? Specimen/Source: ?ThinPrep Pap Test, Cervix/Endocervix Last Menstrual Period: ? 05/10/00 Previous Gynecologic Pathology: ? Benign cellular changes: Parakeratosis: Surface reaction. ??Predominance of coccobacilli. ? SPECIMEN ADEQUACY ? Satisfactory for evaluation. GENERAL CATEGORIZATION ? Benign Cellular Changes DESCRIPTIVE DIAGNOSIS ? Parakeratosis - surface reaction present. ? Document reviewed and electronically signed by: ? JUS TY MD [facility] ? Report Date: ??06/07/2000 16:10 End of Report [facility] 06/04/2000 06/05/2000 Yaquelin Edwards NP PATHOLOGY ORDERABLES [facility] [address] [place] [address] documented in this encounter Visit Diagnoses Not on filedocumented in this encounter
--- OUTSIDE RECORDS SUMMARY | 2023-09-25 02:46 | XMS_ITS | Encounter Summary ---
Author Organization [facility] Address [facility] [place] [address] Care Team Providers Care Dietary Service Aide Name Role Phone Rell Brady MD Primary Care Provider [phone] Reason for Visit * Reason Comments Medication Refill Encounter Details Date Type Department Care Team (Late st Contact Info) Description 12/11/2014 [place] [address] Rell Burrell MD [facility] [place] [address] Social History Tobacco Use Types Packs/Day Years [...] on filedocumented in this encounter Care Teams Dietary Service Aide Relationship Specialty Start Date End Date Rell Brady MD [address] [place] [address] PCP - General 02/15/12 documented as of this encounter
--- OUTSIDE RECORDS SUMMARY | 2023-09-25 02:46 | XMS_ITS | Clinical Summary ---
Author Organization [facility] Address [address] [place] [address] Care Team Providers Care Nurse Practical Name Role Phone Unknown, Provider Primary Care Provider [phone] Social History Tobacco Use Types Packs/Day Years Used Date Smoking Tobacco: Never Assessed Sex and Gender Information Value Date Recorded Sex Assigned at Not on file Gender Identity Not on file Sexual Orientation Not on file Plan of Treatment Health Maintenance Due Date Last Done Comments RSV Immunization ( o r 60+ Years) (1 - 1-dose 60+ series) 2019 COVID-19 Vaccine (2022-24 season) 2022 Hepatitis C Screen Completed 04/03/2023 Procedures Procedure Name Priority Date/Time Associated Diagnosis Comments HEPATITIS C AB W REFLEX TO HCV RNA BY PCR Routine 04/03/2023 8:45 EST from Last 3 Months or Most Recently Relevant to Health Maintenance Results * HEPATITIS C AB W REFLEX TO HCV RNA BY PCR (04/03/2023 8:45 EST) Hep C Antibody Negative Negative 04/03/2023 21:44 EST [facility] Blood VENOUS BLOOD / Unknown 04/03/2023 8:45 EST 04/03/2023 17:58 EST Provider Outr Resulting Lab CHEMISTRY & BLOOD GAS ORDERABLES [facility] [address] [place] [address] from Last 3 Months or Most Recently Relevant to Health Maintenance Care Teams Nurse Practical Relationship Specialty Start Date End Date Unknown, Provider, PCP - General 01/10/10
--- OUTSIDE RECORDS SUMMARY | 2023-09-25 02:46 | XMS_ITS | Encounter Summary ---
Author Organization [facility] Address [facility] [place] [address] Care Team Providers Care Surgical Scrub Technologist Name Role Phone Rell Brady MD Primary Care Provider [phone] Reason for Visit * Reason Comments Medication Refill Encounter Details Date Type Department Care Team (Late st Contact Info) Description 11/29/2013 [place] [address] Rell Burrell MD [facility] [place] [address] Social History Tobacco Use Types Packs/Day Years Used Date Smoking Tobacco: Never Sex and Gender Information Value Date Recorded Sex Assigned at Not on file Gender Identity Not on file Sexual Orientation Not on file documented as of this encounter Miscellaneous Notes * Telephone Encounter - Bridgett Wilson LPN - 12/01/2013 2:10 PM EDT Rx request received. Patient due for 2 year f/u in Jan 2014. Called patient at which she was told of need to schedule f/u. Patient agrees with plan of care. Call transferred to dental secretary. documented in this encounter Plan of Treatment Not on file documented as of this encounter Visit Diagnoses Not on filedocumented in this encounter Care Teams Surgical Scrub Technologist Relationship Specialty Start Date End Date Rell Brady MD [address] [place] [address] PCP - General 02/15/12 documented as of this encounter
--- OUTSIDE RECORDS SUMMARY | 2023-09-25 02:46 | XMS_ITS | Encounter Summary ---
Author Organization [facility] [place] [address] Care Team Providers Care Grain Blender Name Role Phone Rell Brady MD Primary Care Provider [phone] Encounter Details Date Type Department Care Team (Late st Contact Info) Description 03/18/2015 Orders [place] [address] Rell Burrell MD [facility] [address] Acquired hypothyroidism Social History Tobacco Use Types Packs/Day Years Used Date Smoking Tobacco: Never Smokeless Tobacco: Never Sex and Gender Information Value Date Recorded Sex Assigned at Not on file Gender Identity Not on file Sexual Orientation Not on file documented as of this encounter Plan of Treatment Not on file documented as of this encounter Results * (ABNORMAL) Lipid panel (fasting) (03/18/2015 7:46 AM EST) Chol, Total 213(H) <=199 mg/dL [facility] Comment: Recommendations of the NCEP Adult Treatment Panel for the following risk cutoff thresholds for the [place] population: Desirable: <200 mg/dL Borderline High: 200-239 mg/dL High: > or = 240 mg/dL Triglycerides 146 <=149 mg/dL [facility] Comment: Reference Range: Normal triglycerides: ??<150 mg/dL Borderline high: ??150-199 mg/dL High: ??200-499 mg/dL Very high: ??>rx=768 mg/dL JENNA 2001; 285(19):7248-5230 HDL 36(L) >=40 mg/dL CHON HODAENNIUM Comment: Reference range: ??Low HDL: ?? < 40 mg/dL ??Normal: ?40-60 mg/dL ??Desirable: > 60 mg/dL JENNA 2001; 285(19):9664-4146 LDL Cholesterol 148(H) <=99 mg/dL QUANGMARLON DRUMMONDENNIUM Comment: Reference range: ?? Optimal: ?<100 mg/dL ?? Near Optimal/Above Optimal: ?? 100-129 mg/dL ?? Borderline high: ?130-159 mg/dL ?? High: ? 160-189 mg/dL ?? Very high: ?>ie=120 mg/dL JENNA 2001: 285(19):3983-9734 Chol/HDL Ratio 5.9 ratio ALEIDA Azevedo HODAAUBRIEIUM Comment: A Cholesterol to HDL ratio below 4:1 is desirable. ??Studies suggest that increased CAD risk occurs at ratios above 5 for females and above 6 for men. ? [place] Heart Association ??(http://www.americanheart.org) ? Nicolasa Int Med, 1994; 121:641 ? AM J Med, 1998; 105(1A):48S Blood specimen (specimen) 03/18/2015 7:46 AM EST 03/18/2015 8:05 AM EST Narrative Resulting Agency Comment Spec In Lab Rell Burrell MD CHEMISTRY ORDERABLES CHON JACINTO documented in this encounter Visit Diagnoses Diagnosis Acquired hypothyroidism Unspecified hypothyroidism documented in this encounter Care Teams Grain Blender Relationship Specialty Start Date End Date Rell Brady MD [address] [place] [address] [address] [place] [address] PCP - General 02/15/12 documented as of this encounter
--- OUTSIDE RECORDS SUMMARY | 2023-09-25 02:46 | XMS_ITS | Encounter Summary ---
Author Organization [facility] Address [address] [place] [address] Care Team Providers Care Farm Machinery Engine Mechanic Name Role Phone Unknown, Provider Primary Care Provider [phone] Encounter Details Date Type Department Care Team (Late st Contact Info) Description 03/31/2013 Results Only [facility] - [facility] [address] [place] [address] [id number] Yaquelin Edwards, SELENE Social History Tobacco Use Types Packs/Day Years Used Date Smoking Tobacco: Never Assessed Sex and Gender Information Value Date Recorded Sex Assigned at Not on file Gender Identity Not on file Sexual Orientation Not on file documented as of this encounter Plan of Treatment Not on file documented as of this encounter Procedures Procedure Name Priority Date/Time Associated Diagnosis Comments PAP TEST- RESULT ONLY Routine 03/31/2013 0:00 EST documented in this encounter Results * PAP TEST- RESULT ONLY (03/31/2013 0:00 EST) Pathology Report: CYTOPATHOLOGY REPORT Reports generated via electronic interface contain original data; however they are lacking the format of the original report. Caution should be taken when reading/interpreti ng unformatted reports. Name: ? LUIS PARDO ? Accession #: ? [id number] ? : ? 1960 (Age: 52) ??F ?Collect Date: ? 03/31/2013 ? Location: ? [facility] ? Receive Date: ? 04/01/2013 ? Provider: YAQUELIN EDWARDS NP Copy to: JUAN J HENDERSON MD ? Final Report SPECIMEN ADEQUACY ? Satisfactory for Evaluation - transformation zone component present GENERAL CATEGORIZATION ? Negative for Intraepithelial Lesion or Malignancy ?? Last Menstrual Period: 02/2012 Hormonal/Contracep tive status: Hormone Replacement Therapy Specimen/Source: ??Pap Test, Cervix/Endocervix, ThinPrep Imaging System with manual evaluation Document reviewed and electronically signed by: ? GO Foster(ASCP) ? Report ??Date: 04/04/2013 13:27 HPV with Pap Test ? Date Ordered: ? 04/04/2013 ? Status: ?? Signed Out ?Date Complete: ? 04/08/2013 ? By: ??System Interface ? Date Reported: ? 04/08/2013 ? Interpretation RESULT: Negative for HPV. No E6 or E7 mRNA is detected from HPV types 16,18,31,33,35, 39,45,51,52,56,58, 59,66, and 68 by event specialist mediated amplification. Comments Document reviewed and electronically signed by: ? System Interface ? Report date: 04/08/2013 By the signature above, the attending physician certifies that he/she has personally conducted a gross and/or microscopic examination of the described specimens and rendered or confirmed the above diagnosis. End of Report [facility] 03/31/2013 04/01/2013 Yaquelin Edwards NP PATHOLOGY ORDERABLES [facility] [address] [place] [address] documented in this encounter Visit Diagnoses Not on filedocumented in this encounter Care Teams Farm Machinery Engine Mechanic Relationship Specialty Start Date End Date Unknown, Provider, PCP - General 01/10/10 documented as of this encounter
--- OUTSIDE RECORDS SUMMARY | 2023-09-25 02:46 | XMS_ITS | Encounter Summary ---
[place] [address] Care Team Providers Care Customer Supply Coordinator Name Role Phone Rell Brady MD Primary Care Provider [phone] Encounter Details Date Type Department Care Team (Late st Contact Info) Description 09/19/2016 Notes [place] [address] Bridgett Wilson LPN Social History Tobacco Use Types Packs/Day Years Used Date Smoking Tobacco: Never Smokeless Tobacco: Never Sex and Gender Information Value Date Recorded Sex Assigned at Not on file Gender Identity Not on file Sexual Orientation Not on file documented as of this encounter Progress Notes * Bridgett Wilson LPN - 09/19/2016 4:18 PM EDT Images from the original note were not included. Luis Still?? Female, 55 y.o., 1960 Weight: 89.4 kg (197 lb) Home: Work: PCP: Rell Brady MD myD-H: Code Exp Next Appt: None ?? Message Received: Today ? Kalani Sawyer Gail, LPN ? Left vm and sent letter ? Previous Messages ?? ----- Message ----- ? From: Bridgett Wilson LPN ? Sent: 09/11/2016 ?? 8:41 AM ? To: [facility] Can you please contact patient for over due f/u? Thanks Bridgett documented in this encounter Plan of Treatment Not on file documented as of this encounter Visit Diagnoses Not on filedocumented in this encounter Care Teams Customer Supply Coordinator Relationship Specialty Start Date End Date Rell Brady MD [address] [place] [address] PCP - General 02/15/12 documented as of this encounter
--- OUTSIDE RECORDS SUMMARY | 2023-09-25 02:46 | XMS_ITS | Encounter Summary ---
Author Organization [facility] [address] Care Team Providers Care Electrophysiology Nurse Practitioner Name Role Phone Ra Marks MD Primary Care Provider [phone] Reason for Visit * Reason Onset Date Comments Labs Only 09/23/2010 Encounter Details Date Type Department Care Team (Late st Contact Info) Description 09/23/2010 Telephone [place] [id number] Rell Burrell MD [facility] [place] [address] Labs Only Social History Tobacco Use Types Packs/Day Years Used Date Smoking Tobacco: Never Assessed Sex and Gender Information Value Date Recorded Sex Assigned at Not on file Gender Identity Not on file Sexual Orientation Not on file documented as of this encounter Plan of Treatment Not on file documented as of this encounter Results * T4, free (02/15/2012 8:55 AM EST) Free T4 1.36 0.90 - 1.60 ng/dL [facility] Blood specimen (specimen) 02/15/2012 8:55 AM EST 02/15/2012 9:10 AM EST Narrative Resulting Agency Comment Spec In Lab Rell Burrell MD CHEMISTRY ORDERABLES [facility] * TSH (02/15/2012 8:55 AM EST) TSH 0.49 0.27 - 4.20 mcIU/mL CHON JACINTO Blood specimen (specimen) 02/15/2012 8:55 AM EST 02/15/2012 9:10 AM EST Narrative Resulting Agency Comment Spec In Lab Rell Burrell MD CHEMISTRY ORDERABLES Performing Organization Address City/State/[facility] Co de Phone Number CHON JACINTO documented in this encounter Visit Diagnoses Diagnosis Hypothyroid- Primary Unspecified hypothyroidism documented in this encounter Care Teams Electrophysiology Nurse Practitioner Relationship Specialty Start Date End Date Ra Marks MD [address] [place] [address] PCP - General 01/18/10 02/14/12 documented as of this encounter
--- OUTSIDE RECORDS SUMMARY | 2023-09-25 02:46 | XMS_ITS | Encounter Summary ---
Author Organization [facility] Address [address] [place] [address] Care Team Providers Care Project Admin Name Role Phone Unknown, Provider Primary Care Provider [phone] Encounter Details Date Type Department Care Team (Late st Contact Info) Description 05/29/2016 Results Only [facility] [phone] Padmini Hernandez, [address] [place] [address] Social History Tobacco Use Types [...] Diagnosis Comments PAP TEST- RESULT ONLY Routine 05/29/2016 0:00 EDT documented in this encounter Results * PAP TEST- RESULT ONLY (05/29/2016 0:00 EDT) Pathology Report: CYTOPATHOLOGY REPORT Reports generated via electronic interface contain original data; however they are lacking the format of the original report. Caution should be taken when reading/interpreti ng unformatted reports. Name: ? LUIS PARDO ? Accession #: ? [id number] ? : ? 1960 (Age: 55) ??F ?Collect Date: ? 05/29/2016 ? Location: ? [facility] ? Receive Date: ? 05/30/2016 ? Provider: PADMINI HERNANDEZ TECHNICAL EDITOR Copy to: JUAN J HENDERSON MD ? Final Report SPECIMEN ADEQUACY ? Satisfactory for Evaluation - transformation zone component present GENERAL CATEGORIZATION ? Negative for Intraepithelial Lesion or Malignancy ?? Last Menstrual Period: 2013 Hormonal/Contracep tive status: Hormone Replacement Therapy Specimen/Source: ??Pap Test, Cervix, ThinPrep Imaging System with manual evaluation Document reviewed and electronically signed by: ? Flor De Dios, [place](ASCP) ? Report ??Date: 05/31/2016 15:40 HPV with Pap Test ? Date Ordered: ? 05/31/2016 ? Status: ?? Signed Out ?Date Complete: ? 06/01/2016 ? By: ??System Interface ? Date Reported: ? 06/01/2016 ? Interpretation RESULT: Negative for HPV. No E6 or E7 mRNA is detected from HPV types 16,18,31,33,35, 39,45,51,52,56,58, 59,66, and 68 by veneer layer mediated amplification. Comments Document reviewed and electronically signed by: ? System Interface ? Report date: 06/01/2016 By the signature above, the attending physician certifies that he/she has personally conducted a gross and/or microscopic examination of the described specimens and rendered or confirmed the above diagnosis. End of Report [facility] 05/29/2016 05/30/2016 Padmini Hernandez TECHNICAL EDITOR PATHOLOGY ORDERABLES [facility] [address] [place] [address] documented in this encounter Visit Diagnoses Not on filedocumented in this encounter Care Teams Project Admin Relationship Specialty Start Date End Date Unknown, Provider, PCP - General 01/10/10 documented as of this encounter
--- OUTSIDE RECORDS SUMMARY | 2023-09-25 02:46 | XMS_ITS | Encounter Summary ---
Author Organization [facility] Address [address] [place] [address] Care Team Providers Care Poultry Picking Machine Tender Name Role Phone Unknown, Provider Primary Care Provider Encounter Details Date Type Department Care Team (Late st Contact Info) Description 04/03/2022 Lab Requisition [facility] Pathology & Laboratory Medicine - [facility] [address] [place] [address] AdjDeysi mckeon, SELENE [address] [place] [address] Encounter for other general examination Social History Tobacco Use Types Packs/Day Years Used Date Smoking Tobacco: Never Assessed Sex and Gender Information Value Date Recorded Sex Assigned at Not on file Gender Identity Not on file Sexual Orientation Not on file documented as of this encounter Plan of Treatment Not on file documented as of this encounter Procedures Procedure Name Priority Date/Time Associated Diagnosis Comments PAP TEST Today 03/31/2022 7:30 EST Encounter for other general examination HPV DNA DETECTION WITH GENOTYPING, PCR Today 03/31/2022 7:30 EST Encounter for other general examination documented in this encounter Results * HUMAN PAPILLOMAVIRUS (HPV) DETECTION-HIGH RISK TYPES (03/31/2022 7:30 EST) HPV other High Risk types, PCR Negative Negative 04/12/2022 13:22 EST [facility] Comment:No E6 or E7 mRNA is detected from HPV types 16,18,31,33,35,39,45,51,52,56,58,59,66, and 68 by rolled gold plater mediated amplification. Papanicolaou smear specimen (specimen) CERVIX UTERI STRUCTURE / Unknown 03/31/2022 7:30 EST 04/11/2022 13:46 EST Deysi Painter NP MICROBIOLOGY - GENER AL ORDERABLES Performing Organization Address City/[facility] Co de Phone Number [facility] [address] [place] [address] * PAP TEST (03/31/2022 7:30 EST) Specimens A. Cervix and/or Endocervix , ThinPrep Imaging System with Manual Evaluation 04/12/2022 13:22 [facility] Specimen Adequacy Satisfactory for Evaluation - transformation zone component present 04/12/2022 13:22 [facility] General Categorization Negative for intraepithelial lesion or malignancy 04/12/2022 13:22 [facility] Attestation . 04/12/2022 13:22 [facility] at 1322 Clinical History See below 04/12/19 23 13:22 [facility] HPV The result for the Human Papillomavirus (HPV) Detection-High Risk Types is Negative. No E6 or E7 mRNA is detected from HPV types 16,18,31,33,35,39 ,45,51,52,56,58,5 9,66, and 68 by rolled gold plater mediated amplification.Elizabeth ting was performed on specimen [id number] and was resulted on 04/12/2022 1322 EST by AURELIO, LAB INSTRUMENT RESULTS IN 04/12/2022 13:22 [facility] Performing Lab [facility] 04/12/2022 13:22 [facility] Scanned Images 04/12/2022 13:22 [facility] Papanicolaou smear specimen (specimen) CERVIX UTERI STRUCTURE / Unknown 03/31/2022 7:30 EST 04/03/2022 11:20 EST Deysi Painter NP PATHOLOGY ORDERABLES [facility] [address] [place] [address] documented in this encounter Visit Diagnoses Diagnosis Encounter for other general examination documented in this encounter Care Teams Poultry Picking Machine Tender Relationship Specialty Start Date End Date Unknown, Provider, PCP - General 01/10/10 documented as of this encounter
--- OUTSIDE RECORDS SUMMARY | 2023-09-25 02:46 | XMS_ITS | Encounter Summary ---
Author Organization [facility] Address [facility] [place] [address] Care Team Providers Care Mud Analysis Well Logging Operator Name Role Phone Rell Brady MD Primary Care Provider [phone] Reason for Visit * Reason Comments Hypothyroidism Patient is here toda y for a follow up, states things are going good. Encounter Details Date Type Department Care Team (Late st Contact Info) Description 07/09/2017 9:40 AM EDT Office [place] [address] Rell Burrell MD [facility] [place] [address] Multinodular thyroid Social History Tobacco Use Types Packs/Day Years Used Date Smoking Tobacco: Never Smokeless Tobacco: Never Sex and Gender Information Value Date Recorded Sex Assigned at Not on file Gender Identity Not on file Sexual Orientation Not on file documented as of this encounter Last Filed Vital Signs Vital Sign Reading Time Taken Comments Blood Pressure 150/96 07/09/2017 9:29 AM EDT Pulse 74 07/09/2017 9:29 AM EDT Temperature - - Respiratory Rate - - Oxygen Saturation 98% 07/09/2017 9:2 9 AM EDT Inhaled Oxygen Concentration - - Weight 92.4 kg (203 lb 12.8 oz) 07/09/2017 9:29 AM EDT Patient reported Height 174.6 cm (5' 8.75) 07/09/2017 9 :29 AM EDT Body Mass Index 30.32 07/09/2017 9:29 AM EDT documented in this encounter Progress Notes * Phillip Stern MD - 07/09/2017 9:40 AM EDT Thyroid Ultrasound Machine used: BK 15 mHz Date: 07/09/17 Indication: Thyroid nodule follow up Comparison: Prior utlrasound Thyroid measurements Nodules Right lobe None #1 Superior ___x___ midlobe inferior ___1.7cm AP deep ___2 cm Transverse wide ___2.7 cm Saggittal long Features ___x___ solid cystic partially cystic ___x___ hypoechoic hyperechoic isoechoic heterogenous ___x___ homogenous ___x___ smooth margins irregular margin halo margins Blood flow: 1, ___x___ 2, 3, 4 Calcification: microcalcification macrocalcification comet tail Isthmus None ___1.8cm AP deep ___3cm Transverse wide ___2.8 cm Saggittal long Features ___x___ solid cystic partially cystic hypoechoic hyperechoic ___x___ isoechoic heterogenous ___x___ homogenous ___x___ smooth margins irregular margin halo margins Blood flow: 1, ___x___ 2, 3, 4 Calcification: microcalcification macrocalcification comet tail Lymph nodes Right: None Left: None Central: None Diagnostic impression: Right sided hypo echoic nodule 2.7 cm on largest dimension, isthmus right sided nodule 3 cm on largest dimension. No nodules of the left lobe of the thyroid. * Rell Burrell MD - 07/09/2017 9:40 AM EDT Subjective: Patient ID: Luis Still is a 56 y.o. female comes in to see me for the first time since February 2015 for oversight and evaluation of her multinodular thyroid and also hypothyroidism. She is generally feeling well. Her only complaint is that she would like to lose weight. No problems swallowing. She is not aware that her thyroid is any larger than it was. Last time I had seen Luis we had done an ultrasound. The decision was to have one more ultrasound in 1 or 2 years.. HPI Review of Systems Objective: Physical Exam Constitutional: She is oriented to person, place, and time. She appears well- developed and well-nourished. Neck: Thyromegaly present. As per today's ultrasound. Lymphadenopathy: She has no cervical adenopathy. Neurological: She is alert and oriented to person, place, and time. Psychiatric: She has a normal mood and affect. Her behavior is normal. Thought content normal. BP (!) 150/96 (BP Location (NBP): Left arm, Patient Position: Sitting, BP Cuff Sizes: Large Adult (32-43 cm)) Pulse 74 Ht 174.6 cm (5' 8.75) Wt 92.4 kg (203 lb 12.8 oz) Comment: Patient reported SpO2 98% BMI 30.32 kg/m2 Assessment and Plan: Recent Results (from the past 24 hour(s)) TSH Result Value Ref Range TSH 0.30 0.27 - 4.20 mlU/ML T4, free Result Value Ref Range Free T4 1.69 0.93 - 1.70 ng/dL Luis remains euthyroid on her present dose of levothyroxine and will continue the same dose. Dr. Rocha did a repeat ultrasound. There appears to be some enlargement to the right lobe nodule and perhaps the isthmus nodule as well. I will do the calculations and discussed with Dr. Reaves as to whether or not we should consider doing an FNA biopsy or even a thyroidectomy. Greater than 20 of the 25 minute appointment was spent [id number] discussing the issues above. I told Luis that I would write her once I was able to discuss the situation further. documented in this encounter Plan of Treatment Not on file documented as of this encounter Visit Diagnoses Diagnosis Multinodular thyroid Nontoxic multinodular goiter documented in this encounter Care Teams Mud Analysis Well Logging Operator Relationship Specialty Start Date End Date Rell Brady MD [address] [place] [address] PCP - General 02/15/12 documented as of this encounter
--- OUTSIDE RECORDS SUMMARY | 2023-09-25 02:46 | XMS_ITS | Encounter Summary ---
[place] [address] Care Team Providers Care Pressing Department Supervisor Name Role Phone Rell Brady MD Primary Care Provider [phone] Encounter Details Date Type Department Care Team (Latest Contact Info) Description 07/09/2017 8:30 AM EDT Laboratory Appointment Lab [address] [place] [address] Hypothyroidism, unspecified type Social History Tobacco Use [...] Priority Date/Time Associated Diagnosis Comments TSH STAT 07/09/2017 8:22 AM EDT Hypothyroidism, unspecified type T4, FREE Routine 07/09/2017 8:22 AM EDT Hypothyroidism, unspecified type documented in this encounter Results * T4, free (07/09/2017 8:22 AM EDT) Free T4 1.69 0.93 - 1.70 ng/dL [facility] Blood specimen (specimen) 07/09/2017 8:22 AM EDT 07/09/2017 8:40 AM EDT Narrative Resulting Agency Comment Spec In Lab Rell Burrell MD CHEMISTRY ORDERABLES Performing Organization Address City/[facility]/ZIP Co de Phone Number [facility] [place] [address] * TSH (07/09/2017 8:22 AM EDT) TSH 0.30 0.27 - 4.20 mlU/ML [facility] Blood specimen (specimen) 07/09/2017 8:22 AM EDT 07/09/2017 8:40 AM EDT Narrative Resulting Agency Comment Spec In Lab Rell Burrell MD CHEMISTRY ORDERABLES Performing Organization Address [facility] Co de Phone Number [facility] [place] [address] documented in this encounter Visit Diagnoses Diagnosis Hypothyroidism, unspecified type documented in this encounter Care Teams Pressing Department Supervisor Relationship Specialty Start Date End Date Rell Brady MD [address] [place] [address] PCP - General 02/15/12 documented as of this encounter
--- NOTE | 2023-09-25 07:45 | DI.MAMMO_ITS ---
Exam(s) MAMMO SCREENING EXAM: MAMMO SCREENING CLINICAL HISTORY: screening,z12.39 TECHNIQUE: Mammograms were interpreted according to the usual protocol including computer analysis w [id number] CAD system, tomosynthesis and C-view imaging. COMPARISON: 2014 through 2023 FINDINGS: The breasts are composed of heterogeneously dense fibroglandular densities, Breast Density category C . No suspicious masses or suspicious microcalcifications are seen. No skin thickening or abnormal axillary lymph nodes are seen. There has been no significant change from prior exams. IMPRESSION: BI-RADS Category 1, Negative mammogram. Yearly screening mammography is recommended. Breast Density Category C, heterogeneously Dense. The mammogram demonstrates the patient's breast tissue is dense. Dense breast tissue is very common a nd is not abnormal but dense breast tissue can make it harder to find cancer on a mammogram. Also, de nse breast tissue may increase breast cancer risk. This information about the result of the mammogram report was provided to the patient to raise their awareness. Use this report when you speak with the patient about their risks for breast cancer, which includes their family history. At that time, you may recommend additional screening tests (Ultrasound or MRI) as they might be useful based on their r isk. A negative radiographic report should not delay biopsy if a dominant or clinically suspicious mass is present. Up to ten percent of cancers are not identified on mammography. A negative report may reinforce clinical impression. Adenosis and dense breasts may obscure an underlying neoplasm. False positive reports average 6 to 10%.
== END ==
PROVIDERS: PCP Nurse Practitioner Family; Visit Provider Nurse Practitioner Family
DX: Z12.39 Encounter for other screening for malignant neoplasm of breast (principal); Z12.31 Encounter for screening mammogram for malignant neoplasm of breast; R92.333 Mammographic heterogeneous density, bilateral breasts
CPT/HCPCS: 77063; 77067

== ENCOUNTER 2024-07-17 09:36 | Outpatient (CLI) | payer BC, SELFPAY ==
[2024-07-17 10:49] LABS: TSH (W/Ref FT4) 1.83 uIU/mL (0.36-3.74)
== END 2024-07-17 09:37 | disposition home or self-care (01) ==
LOC: LBO 09:36
PROVIDERS: PCP Nurse Practitioner Family; Visit Provider Nurse Practitioner Family
DX: E03.9 Hypothyroidism, unspecified (principal)
CPT/HCPCS: 36415; 84443

== ENCOUNTER 2024-09-26 00:29 | Outpatient (CLI) | payer MEDICARE, SELFPAY ==
--- NOTE | 2024-09-26 06:48 | DI.MAMMO_ITS ---
Exam(s) MAMMO SCREENING EXAM: MAMMO SCREENING CLINICAL HISTORY: screening, Z12.39. TECHNIQUE: Bilateral full field digital CC and MLO mammographic images were obtained with 3D tomosynthesis and utilizing computer aided detection (CAD). COMPARISON: Prior mammograms were reviewed. Prior ultrasound also reviewed. FINDINGS: The fibroglandular tissue pattern is again noted be heterogeneously dense, somewhat decreasing the sensitivity of the mammogram for finding hidden underlying lesions. There are no new spiculated masses nor new malignant appearing microcalcification groups. There is no significant architectural distortion nor skin thickening-retraction. IMPRESSION: No radiographic evidence of malignancy. BI-RADS Category 1 - Negative Breast Density - Category C - The breast are heterogeneously dense, which may obscure small masses. Breast density Category C or D implies that the patient has dense breast tissue. Dense breast tissue can make it harder to find cancer on a mammogram. Dense breast tissue is also associated with an increased risk of breast cancer. This information about the result of the mammogram report was provided to the patient to raise their awareness. Use this report when you speak with the patient about their risks for breast cancer, which includes their family history. At that time, you may recommend additional screening tests (Ultrasound or MRI) as these tests may add significant information. A negative radiographic report should not delay biopsy if a dominant or clinically suspicious mass is present. Up to ten percent of cancers are not identified on mammography. A negative report may reinforce clinical impression. Adenosis and dense breasts may obscure an underlying neoplasm. False positive reports average 6 to 10%. Patient will receive a letter notifying them of these results.
== END 2024-09-26 00:49 ==
PROVIDERS: PCP Nurse Practitioner Family; Visit Provider Nurse Practitioner Family
DX: Z12.31 Encounter for screening mammogram for malignant neoplasm of breast (principal); R92.333 Mammographic heterogeneous density, bilateral breasts
CPT/HCPCS: 77063; 77067